=== PATIENT | female | born 1940 | race Caucasian/White ===

== ENCOUNTER → 2016-08-13 | Outpatient (CLI) | payer OTHER ==
[~2016-08-13] MED LIST: CALC-354 PO; CALC600T9 PO; CAND1TAB PO; CHOL100010 PO; CHOL20009 PO; CHOLPOW PO; CLB/200 PO; DICL1GEL12; LEVO100T7 PO; LEVO125T72 PO; LORA-741 PO; MECL1TAB42 PO; MECL25TA2 PO; PANT40TA PO; PRED-301 PO; PRED10TA PO; PRM/625 PO; SERT25TA PO; SERT50TA PO
== END | disposition home or self-care (01) ==
LOC: C.LABBC 15:10
PROVIDERS: ATTEND Internal Medicine
DX: E03.9 Hypothyroidism, unspecified (principal); I10 Essential (primary) hypertension

== ENCOUNTER → 2016-09-14 | Outpatient (CLI) | payer OTHER ==
[~2016-09-14] MED LIST changes: -CALC-354 PO; -CHOL20009 PO; -CHOLPOW PO; -CLB/200 PO; -DICL1GEL12; -LEVO100T7 PO; -MECL1TAB42 PO; -SERT50TA PO
== END | disposition home or self-care (01) ==
LOC: C.LABPBG 10:19
PROVIDERS: ATTEND Internal Medicine
DX: I10 Essential (primary) hypertension (principal); M35.3 Polymyalgia rheumatica

== ENCOUNTER → 2016-10-26 | Outpatient (CLI) | payer OTHER | END | disposition home or self-care (01) | LOC: C.LABPBG 13:44 | PROVIDERS: ATTEND Internal Medicine | DX: E03.9 Hypothyroidism, unspecified (principal); Z79.52 Long term (current) use of systemic steroids ==

== ENCOUNTER → 2017-01-07 | Outpatient (CLI) | payer OTHER ==
[~2017-01-07] MED LIST changes: +CALC-354 PO; +CHOL20009 PO; +CHOLPOW PO; +CLB/200 PO; +DICL1GEL12; +LEVO100T7 PO; +MECL1TAB42 PO; +SERT50TA PO
== END | disposition home or self-care (01) ==
LOC: C.LABPBG 08:07
PROVIDERS: ATTEND Family Medicine
DX: Z00.00 Encounter for general adult medical examination without abnormal findings (principal); M19.90 Unspecified osteoarthritis, unspecified site; E03.9 Hypothyroidism, unspecified

== ENCOUNTER → 2017-02-22 | Outpatient (CLI) | payer OTHER | END | disposition home or self-care (01) | LOC: C.LABPBG 10:09 | PROVIDERS: ATTEND Internal Medicine | DX: M35.3 Polymyalgia rheumatica (principal) ==

== ENCOUNTER → 2017-03-25 | Outpatient (CLI) | payer OTHER | END | disposition home or self-care (01) | LOC: C.LABPBG 09:34 | PROVIDERS: ATTEND Internal Medicine | DX: M35.3 Polymyalgia rheumatica (principal) ==

== ENCOUNTER → 2017-05-19 | Outpatient (CLI) | payer OTHER ==
[~2017-05-19] MED LIST changes: -CALC600T9 PO; -CHOL100010 PO; -LEVO125T72 PO; -MECL25TA2 PO; -PANT40TA PO; -PRED-301 PO; -PRED10TA PO; -PRM/625 PO; -SERT25TA PO
== END | disposition home or self-care (01) ==
LOC: C.LABPBG 14:50
PROVIDERS: ATTEND Internal Medicine
DX: M35.3 Polymyalgia rheumatica (principal); R25.2 Cramp and spasm

== ENCOUNTER → 2017-05-20 | Day surgery (SDC) | payer OTHER ==
[2017-05-17 10:07] VITALS: Ht 149.9 cm; Wt 56.8 kg
[~2017-05-20] VITALS: Ht 149.9 cm; Wt 56.8 kg
[~2017-05-20] MED LIST changes: +LIDOCAINE HCL 2% 2 ML VIAL (20MG/ML) ONE; +PROPOFOL IV EMULSION 10 MG/ML 20 ML VIAL IV ONE
[2017-05-20 14:34] VITALS: TEMP 36.5
--- NOTE | 2017-05-20 15:16 | Endo History and Physical ---
History & Physical Date of Service: May 20, 2017. Chief Complaint: Diarrhea Referring Physician: Danish Soto History of Present Illness 77 yo CF who presents for Colonoscopy secondary to diarrhea. Past Medical History Reflux, Hypertension, Thyroid Disease, Kidney Disease Past Surgical History Hx Cardiac Surgery: No Hx Internal Defibrillator: No Hx Pacemaker: No Hx Abdominal Surgery: Yes ([facility], SUDHEER) Hx of Implantable Prosthesis: No Hx Post-Op Nausea and Vomiting: No Hx Cancer Surgery: No Hx Thoracic Surgery: No Hx Orthopedic: Yes (CERVICAL DISCECTOMY/FUSION (GOOD ROM), RT/LEFT CTR, RT/ LEFT RC) Hx Urinary Tract Surgery: Yes (BLADDER TACK) Family History Colon CA Social History Smoking Status: Never Smoker Hx Substance Use: No Hx Alcohol Use: Yes (OCCASIONALLY) Allergies Coded Allergies: No Known Allergies (Unverified , 05/17/17) Current Medications Reported Home Medications Medications Dose Route/Sig Max Daily Dose Days Date Category Dose Instructions Caltrate 600+D (Calcium Carbonate-Cholecalcife) 1 Tab Tab 2 Tab PO QAM 05/17/17 Reported Vitamin D (Cholecalciferol) 2,000 Unit Tab 1 Tab PO QAM 05/17/17 Reported Zoloft (Sertraline HCl) 50 Mg Tab 50 Mg PO QAM 05/17/17 Reported Meclizine Hcl 25 Mg Tab 1 Tab PO TID PRN 10 05/17/17 Reported Levothyroxine Sodium 100 Mcg Tab 1 Tab PO QAM 90 05/17/17 Reported Voltaren 1% Top Gel (Diclofenac Sodium (Topical)) 1 % Gel DIRECTED PRN 05/17/17 Reported Cholestyramine (Cholestyramine (Bulk)) 1 Pow Pow 1 Dose PO QAM 05/17/17 Reported CeleBREX (Celecoxib) 200 Mg Cap 200 Mg PO QAM 05/17/17 Reported Ativan (Lorazepam) 0.5 Mg Tab 0.5 Mg PO DAILY PRN 10/05/13 Reported Candesartan Cilexetil/Hyd (Candesartan Cilexetil-Hydrochl) 1 Tab Tab 1 Tab PO QAM 10/05/13 Reported DOSE IS 32-12.5 Vital Signs Weight (Kilograms): 56.82 Height (Feet): 4 Height (Inches): 11 Date Time Temp Pulse Resp B/P (MAP) Pulse Ox O2 Delivery O2 Flow Rate FiO2 05/20/17 14:34 36.5 57 20 156/56 (89) 97 Room Air Physical Exam General Appearance: WD/WN, no apparent distress Respiratory/Chest: Auscultation: breath sounds normal Cardiovascular: Heart Auscultation: RRR Abdomen: Bowel Sounds: normal Inspection & Palpation: soft, non-distended, no tenderness, guarding & rebound Assessment and Plan Assessment: 77 yo CF who presents for Colonoscopy secondary to diarrhea. Plan: Proceed with colonoscopy.
--- NOTE | 2017-05-20 16:17 | Discharge Instructions ---
Endoscopy Patient Instructions Date / Procedure(s) Performed May 20, 2017. Colonoscopy Allergy Information Coded Allergies: No Known Allergies (Unverified , 05/17/17) Discharge Date / Findings May 20, 2017. Colon polyp Random colon biopsies Stool aspirate collected Medication Instructions OK to resume all medications today as prescribed Reported Home Medications Medications Dose Route/Sig Max Daily Dose Days Date Category Dose Instructions Caltrate 600+D (Calcium Carbonate-Cholecalcife) 1 Tab Tab 2 Tab PO QAM 05/17/17 Reported Vitamin D (Cholecalciferol) 2,000 Unit Tab 1 Tab PO QAM 05/17/17 Reported Zoloft (Sertraline HCl) 50 Mg Tab 50 Mg PO QAM 05/17/17 Reported Meclizine Hcl 25 Mg Tab 1 Tab PO TID PRN 10 05/17/17 Reported Levothyroxine Sodium 100 Mcg Tab 1 Tab PO QAM 90 05/17/17 Reported Voltaren 1% Top Gel (Diclofenac Sodium (Topical)) 1 % Gel DIRECTED PRN 05/17/17 Reported Cholestyramine (Cholestyramine (Bulk)) 1 Pow Pow 1 Dose PO QAM 05/17/17 Reported CeleBREX (Celecoxib) 200 Mg Cap 200 Mg PO QAM 05/17/17 Reported Ativan (Lorazepam) 0.5 Mg Tab 0.5 Mg PO DAILY PRN 10/05/13 Reported Candesartan Cilexetil/Hyd (Candesartan Cilexetil-Hydrochl) 1 Tab Tab 1 Tab PO QAM 10/05/13 Reported DOSE IS 32-12.5 Provider Instructions Activity Restrictions - No exercising or heavy lifting for 24 hours. - Do not drink alcohol the day of the procedure. - Do not drive a car or operate machinery until the day after the procedure. - Do not make any important decisions or sign important papers in 24 hours after the procedure. Following Day: - Return to full activity which may include returning to work/school. Diet Start your diet with liquids and light foods (jello, soup, juice, toast). Then eat your usual diet if not nauseated. Treatment For Common After Affects For mild abdominal pain, bloating, or excessive gas: - Rest - Eat lightly - Lie on right side Follow-Up Information Follow-up with Danish Soto as scheduled Anesthesia Information What You Should Know You have had a procedure that required some medicine to reduce anxiety and discomfort. This treatment is called moderate sedation. After receiving the treatment, you may be sleepy, but you will be able to breathe on your own. The effects of the treatment may last for several hours. Follow these instructions along with Activity/Diet recommendations noted above: * Do NOT do anything where dizziness or clumsiness would be dangerous. * Rest quietly at home today, then you can be up and about tomorrow. * Have a responsible person stay with you the rest of today. * You may have had an I.V. today. If so, you may take the dressing off later today. Recommendations Call your doctor if: * Trouble breathing * Continuous vomiting for more than 24 hours * Temperature above 101 degrees * Severe abdominal pain or bloating * Pain not relieved by pain medicine ordered * There is increased drainage or redness from any incision * A large amount of rectal bleeding greater than 2-3 tablespoons. (If you had a polyp/s removed or have hemorrhoids, a small amount of blood - from the rectum is to be expected.) * You have any unanswered questions or concerns. IN THE EVENT OF A SERIOUS EMERGENCY, GO TO THE NEAREST EMERGENCY ROOM Your discharge instructions were prepared by provider Brent Burks. Patient Instructions Signature Page Belinda Saucedo Patient (or Guardian) Signature/Date: I have read and understand the instructions given to me by my caregivers. Caregiver/RN/Doctor Signature/Date: The above-named patient and/or guardian has received patient instructions on this date. + Original Patient Signature Page (only) stays with chart. Please make copy for patient.
--- NOTE | 2017-05-20 16:25 | GI REPORT ---
Procedure Date: 05/20/2017 3:41 PM Procedure: Colonoscopy Indications: Chronic diarrhea Medicines: Monitored Anesthesia Care Complications: No immediate complications. Estimated Blood Loss: Estimated blood loss: none. Procedure: Pre-Anesthesia Assessment: - Prior to the procedure, a History and Physical was performed, and patient medications and allergies were reviewed. The patient's tolerance of previous anesthesia was also reviewed. The risks and benefits of the procedure and the sedation options and risks were discussed with the patient. All questions were answered, and informed consent was obtained. Prior Anticoagulants: The patient has taken no previous anticoagulant or antiplatelet agents. ASA Grade Assessment: II - A patient with mild systemic disease. After reviewing the risks and benefits, the patient was deemed in satisfactory condition to undergo the procedure. After I obtained informed consent, the scope was passed under direct vision. Throughout the procedure, the patient's blood pressure, pulse, and oxygen saturations were monitored continuously. The scope was introduced through the anus and advanced to the terminal ileum. The colonoscopy was performed without difficulty. The patient tolerated the procedure well. The quality of the bowel preparation was good. The terminal ileum, ileocecal valve, appendiceal orifice, and rectum were photographed. Findings: A 5 mm polyp was found in the descending colon. The polyp was sessile. The polyp was removed with a hot snare. Resection and retrieval were complete. Several random biopsies were obtained with cold forceps for histology in the entire colon. Fluid aspiration for cytology was performed in the entire colon. Impression: - One 5 mm polyp in the descending colon, removed with a hot snare. Resected and retrieved. - Several random biopsies were obtained in the entire colon. - Fluid aspiration was performed. Recommendation: - Resume previous diet. - Continue present medications. - Repeat colonoscopy for surveillance based on pathology results. - Return to primary care physician as previously scheduled. Brent Burks DO 05/20/2017 4:24:53 PM This report has been signed electronically. Note Initiated On: 05/20/2017 3:41 PM I attest to the content of the Intraoperative Record and orders documented therein, exceptions below
[2017-05-20 16:49] VITALS: BP 121/69; PULSE 66; O2SAT 98
--- NOTE | 2017-05-20 17:12 | Anesthesiology Progress Note ---
Anesthesia Post Op Note Date & Time May 20, 2017 at 17:12 Vital Signs Pain Intensity: 0 Vital Signs Past 12 Hours Date Time Temp Pulse Resp B/P (MAP) Pulse Ox O2 Delivery O2 Flow Rate FiO2 05/20/17 16:49 66 16 121/69 (86) 98 Room Air 05/20/17 16:34 70 16 130/64 (86) 99 Room Air 05/20/17 16:19 74 16 98/57 (71) 96 Room Air 05/20/17 14:34 36.5 57 20 156/56 (89) 97 Room Air Notes Mental Status: alert / awake / arousable, participated in evaluation Pt Amnestic to Procedure: Yes Nausea / Vomiting: adequately controlled Pain: adequately controlled Airway Patency, RR, SpO2: stable & adequate BP & HR: stable & adequate Hydration State: stable & adequate Anesthetic Complications: no major complications apparent
== END | disposition home or self-care (01) ==
LOC: C.GI 14:13
PROVIDERS: ATTEND Internal Medicine
DX: R19.7 Diarrhea, unspecified (principal); D12.4 Benign neoplasm of descending colon; I10 Essential (primary) hypertension; K21.9 Gastro-esophageal reflux disease without esophagitis; Z90.710 Acquired absence of both cervix and uterus; Z90.49 Acquired absence of other specified parts of digestive tract; Z98.1 Arthrodesis status; Z80.0 Family history of malignant neoplasm of digestive organs

== ENCOUNTER → 2017-06-02 | Outpatient (CLI) | payer OTHER ==
[~2017-06-02] MED LIST changes: -LIDOCAINE HCL 2% 2 ML VIAL (20MG/ML) ONE; -PROPOFOL IV EMULSION 10 MG/ML 20 ML VIAL IV ONE
== END | disposition home or self-care (01) ==
LOC: C.LABPBG 12:33
PROVIDERS: ATTEND Internal Medicine
DX: R79.9 Abnormal finding of blood chemistry, unspecified (principal); Z79.52 Long term (current) use of systemic steroids

== ENCOUNTER → 2017-07-12 | Outpatient (CLI) | payer OTHER ==
[2017-07-12 12:25] LABS: BASO % 0.7 %; BASO ABS # 0.07 K/uL (0-0.2); COMPLETE YES; EOS % 3.2 %; HEMATOCRIT 37.7 % (37-47); IG% 0.4 %; LYMPH % 17.9 %; LYMPH ABS # 1.81 K/uL (1.2-3.4); MEAN CELL VOLUME 90.4 fL (80-100); MEAN CORPUSCULAR HEMOGLOBIN 30.7 pg (25-34); MEAN PLATELET VOLUME 9.9 fL (7.4-10.4); MONO % 6.8 %; PLATELET COUNT 261 K/uL (130-400); RED BLOOD COUNT 4.17 M/uL (4.2-5.4); WHITE BLOOD COUNT 10.13 K/uL (4.8-10.8)
[2017-07-12 13:10] LABS: GLUCOSE 92 mg/dl (70-99)
[2017-07-12 13:11] LABS: ALKALINE PHOSPHATASE 84 U/L (45-117); ALT/SGPT 36 U/L (12-78); AST/SGOT 22 U/L (15-37); BLOOD UREA NITROGEN 26 mg/dl (7-18); BUN/CREATININE RATIO 23.6 (10-20); CALCIUM 9.9 mg/dl (8.5-10.1); CARBON DIOXIDE 23 mmol/L (21-32); CHLORIDE 107 mmol/L (98-107); CREATININE 1.09 mg/dl (0.60-1.20); POTASSIUM 4.1 mmol/L (3.5-5.1); SODIUM 139 mmol/L (136-145); THYROID STIMULATING HORMONE 0.072 uIu/ml (0.300-4.500)
== END | disposition home or self-care (01) ==
LOC: C.LABPBG 08:47
PROVIDERS: ATTEND Internal Medicine
DX: I10 Essential (primary) hypertension (principal); E03.9 Hypothyroidism, unspecified; M35.3 Polymyalgia rheumatica; Z79.52 Long term (current) use of systemic steroids; K52.9 Noninfective gastroenteritis and colitis, unspecified

== ENCOUNTER → 2017-08-16 | Outpatient (CLI) | payer OTHER | END | disposition home or self-care (01) | LOC: C.LABPBG 08:45 | PROVIDERS: ATTEND Internal Medicine | DX: E03.9 Hypothyroidism, unspecified (principal) ==

== ENCOUNTER → 2017-12-03 | Outpatient (CLI) | payer OTHER | END | disposition home or self-care (01) | LOC: C.LABBC 11:29 | PROVIDERS: ATTEND Family Medicine Adult Medicine | DX: E03.9 Hypothyroidism, unspecified (principal); R00.2 Palpitations; M35.3 Polymyalgia rheumatica; T14.8XXA Other injury of unspecified body region, initial encounter; W57.XXXA Bitten or stung by nonvenomous insect and other nonvenomous arthropods, initial encounter; R53.83 Other fatigue ==

== ENCOUNTER → 2017-12-27 | Outpatient (CLI) | payer OTHER ==
[2017-12-27 12:38] LABS: BASO % 0.2 %; BASO ABS # 0.02 K/uL (0-0.2); EOS % 0.4 %; EOS ABS # 0.04 K/uL (0-0.5); HEMATOCRIT 38.8 % (37-47); HEMOGLOBIN 13.3 g/dL (12.0-16.0); IG# 0.08 K/uL (0.00-0.02); LYMPH ABS # 1.34 K/uL (1.2-3.4); MEAN CELL VOLUME 91.5 fL (80-100); MEAN CORPUSCULAR HEMOGLOBIN 31.4 pg (25-34); MEAN CORPUSCULAR HGB CONC 34.3 g/dl (32-36); MEAN PLATELET VOLUME 9.8 fL (7.4-10.4); MONO % 2.9 %; NEUT % 82.7 %; NEUT ABS # 8.49 K/uL (1.4-6.5); PLATELET COUNT 261 K/uL (130-400); RED CELL DISTRIBUTION WIDTH CV 13.8 % (11.5-14.5); RED CELL DISTRIBUTION WIDTH SD 45.5 fL (36.4-46.3); WHITE BLOOD COUNT 10.27 K/uL (4.8-10.8)
[2017-12-27 13:21] LABS: ALBUMIN 3.7 gm/dl (3.4-5.0); ALKALINE PHOSPHATASE 78 U/L (45-117); ALT/SGPT 53 U/L (12-78); AST/SGOT 33 U/L (15-37); BLOOD UREA NITROGEN 39 mg/dl (7-18); CALCIUM 9.7 mg/dl (8.5-10.1); CARBON DIOXIDE 24 mmol/L (21-32); CHOLESTEROL 183 mg/dl (0-200); CREATININE 1.06 mg/dl (0.60-1.20); GLUCOSE 105 mg/dl (70-99); LDL CHOLESTEROL CALCULATED 78 mg/dl; POTASSIUM 3.7 mmol/L (3.5-5.1); SODIUM 140 mmol/L (136-145); TOTAL PROTEIN 7.7 gm/dl (6.4-8.2)
== END | disposition home or self-care (01) ==
LOC: C.LAB1850 10:35
PROVIDERS: ATTEND Internal Medicine Rheumatology
DX: I10 Essential (primary) hypertension (principal); E03.9 Hypothyroidism, unspecified; M35.3 Polymyalgia rheumatica; Z79.52 Long term (current) use of systemic steroids; K52.9 Noninfective gastroenteritis and colitis, unspecified; M25.50 Pain in unspecified joint; R70.0 Elevated erythrocyte sedimentation rate; R53.83 Other fatigue; H53.9 Unspecified visual disturbance

== ENCOUNTER → 2018-03-01 | Outpatient (CLI) | payer OTHER | END | disposition home or self-care (01) | LOC: C.LABPBG 09:43 | PROVIDERS: ATTEND Internal Medicine Rheumatology | DX: K21.9 Gastro-esophageal reflux disease without esophagitis (principal); Z79.52 Long term (current) use of systemic steroids; R53.83 Other fatigue; M31.6 Other giant cell arteritis ==

== ENCOUNTER 2019-03-31 08:12 | Observation (INO) ==
[2019-03-31] MEDS ORDERED: methylPREDNISolone 125 MG/2 ML VIAL IV STA (08:42)
[2019-03-31] MEDS ORDERED: MoRPHine SULFATE 4 MG/ML 1 ML CARP\\VIAL IV STA (08:44)
[2019-03-31] MEDS ORDERED: ACETAMINOPHEN 500 MG TAB PO STA (08:44)
[2019-03-31] MEDS ORDERED: SODIUM CHLORIDE 0.9% 500 ML IV SCH (08:45)
--- NOTE | 2019-03-31 09:01 | XRay Report ---
XR chest 1V portable CLINICAL HISTORY: weakness mental status change COMPARISON STUDY: 10/05/2013 FINDINGS: The bones soft tissues and hemidiaphragms are normal. The cardiomediastinal silhouette is n ormal. The lungs are clear. The pulmonary vasculature is normal. IMPRESSION: Negative chest. The above report was generated using voice recognition software. It may contain grammatical, syntax or spelling errors. Electronically signed by: Alistair Avila M.D. 03/31/2019 9:00 AM
[2019-03-31 09:03] LABS: Hematocrit (blood only) 37.3 % (37-47); Hemoglobin 12.7 g/dL (12.0-16.0); Mean Corpuscular Hemoglobin 31.1 pg (25-34); Mean Corpuscular Volume 91.4 fL (80-100); Mean Platelet Volume 9.8 fL (7.4-10.4); Platelet Count 180 K/uL (130-400); RDW Coefficient of Variation 12.9 % (11.5-14.5); RDW Standard Deviation 43.3 fL (36.4-46.3); Red Blood Count 4.08 M/uL (4.2-5.4); White Blood Count 12.73 K/uL (4.8-10.8)
[2019-03-31 09:09] LABS: iSTAT Creatinine 1.3 mg/dl (0.6-1.3); iSTAT Hemoglobin 12.2 g/dl (12.0-16.0); iSTAT Ionized Calcium 1.2 mmol/l (1.12-1.32); iSTAT Potassium 4.6 mEq/L (3.3-5.0)
[2019-03-31 09:20] LABS: Alanine Aminotransferase 60 U/L (12-78); Albumin Level 3.2 gm/dl (3.4-5.0); Aspartate Aminotransferase 57 U/L (15-37); BUN Creatinine Ratio 22.5 (10-20); Blood Urea Nitrogen 28 mg/dl (7-18); Calcium 9.2 mg/dl (8.5-10.1); Carbon Dioxide 25 mmol/L (21-32); Chloride 106 mmol/L (98-107); Creatinine Clr Calc Pharmacy 27.8 ml/min; Est GFR (African American) 47.6; Est GFR (Non-African American) 41.1; Glucose 104 mg/dl (70-99); Potassium 4.5 mmol/L (3.5-5.1); Sodium 138 mmol/L (136-145)
[2019-03-31 09:22] LABS: Basophils # (auto) 0.03 K/uL (0-0.2); Basophils % (auto) 0.2 %; Eosinophils # (auto) 0.06 K/uL (0-0.5); Eosinophils % (auto) 0.5 %; Immature Granulocytes # (auto) 0.03 K/uL (0.00-0.02); Immature Granulocytes % (auto) 0.2 %; Lymphocytes # (auto) 0.67 K/uL (1.2-3.4); Lymphocytes % (auto) 5.3 %; Monocytes # (auto) 0.98 K/uL (0.11-0.59); Monocytes % (auto) 7.7 %; Neutrophils # (auto) 10.96 K/uL (1.4-6.5); Neutrophils % (auto) 86.1 %
[2019-03-31 09:31] LABS: Alkaline Phosphatase 87 U/L (45-117); Bilirubin,Total 0.6 mg/dl (0.2-1); Creatine Kinase 65 U/L (26-192); Creatine Kinase MB < 1.0 ng/ml (0.5-3.6); Globulin 3.3 gm/dl (2.5-4.0); Total Protein 6.5 gm/dl (6.4-8.2); Troponin I < 0.015 ng/ml (0-0.045)
[2019-03-31] MEDS ORDERED: cefTRIAXone SODIUM 2,000 MG/70 ML BAG IV STA (10:18)
[2019-03-31 10:25] LABS: Appearance Urine Clear (Clear); Bacteria Urine Automated 4+ (Negative); Bilirubin Urine Negative (Negative); Blood Urine Negative (Negative); Cast Urine Automated 0 /lpf (0-5); Color Urine Yellow; Epithelial Cell Urine Auto >30 /lpf (0-5); Glucose Urine UA Negative (Negative); Ketones Urine Negative (Negative); Leukocyte Esterase Urine 2+ (Negative); Nitrite Urine Positive (Negative); Protein Urine Negative (Negative); RBC Urine Automated 0-4 /hpf (0-4); Specific Gravity Urine 1.011 (1.000-1.030); Urobilinogen Urine Negative (Negative)
--- NOTE | 2019-03-31 11:18 | History & Physical Report ---
Date of Service March 31, 2019 Assessment & Plan (1) Myalgia: Patient with 1 day of diffuse myalgias and proximal muscle weakness as well as some nausea/vomiting yesterday. She is a history of polymyalgia rheumatica on chronic steroids which she has been tapering over the last 2 to 3 weeks. Presently she is on 1 mg of prednisone every other day. She is afebrile, hemodynamically stable, electrolytes within normal limits. Patient does not appear to be in adrenal crisis at this time. No visual deficits/jaw claudication or temporal tenderness to suggest temporal arteritis. Tenderness of the muscles and proximal weakness noted. Differential to include flare of polymyalgia rheumatica, adrenal insufficiency, less likely infectious source such as Lyme. Patient also with UTI which may be a precipitating factor for adrenal insufficiency. -Observation to medical floor -Check random cortisol, total CK, ESR, CRP -Check Lyme titers -Celebrex at home dose -Tylenol as needed -Treat underlying UTI as below -Will administer Hydrocortisone 50mg IV q 8 hours for now and monitor symptoms. Patient will most likely need to be discharged on increased dose of Prednisone with Rheumatology followup -PT/OT assessment Present on Admission?: Yes (2) UTI (urinary tract infection): +UA. Patient without symptoms. Afebrile, hemodynamically stable, mild leukocytosis at 12.73 Possibly contributing to other symptoms. -Treatment with Ceftriaxone 1gm IV daily -Follow cultures Present on Admission?: Yes (3) PMR (polymyalgia rheumatica): As above, patient with PMR x 4-5 years, seemingly well controlled on daily Prednisone. Currently weaning dosage, now 1mg QOD. Prior flare 2 years ago with pain and weakness in the upper extremities. Today's symptoms are much more severe and diffuse. 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 Stable. TSH = 1.73 -Continue Synthroid 75 MCG daily Present on Admission?: Yes (6) HTN (hypertension): Blood pressure presently 94/47. Patient reports her pressure is overall fairly well controlled with her candesartan/HCTZ. She has had several episodes of hypotension in the past which she attributed to dehydration. Low blood pressure raises concern adrenal insufficiency. -Hydrocortisone as above -Continue candesartan/HCTZ, hold for systolic less than 110 mmHg -Closely monitor blood pressure Present on Admission?: Yes (7) GERD without esophagitis: Chronic. Stable. -Continue omeprazole Present on Admission?: Yes (8) Anxiety: Chronic. Stable -Continue sertraline -Patient reports rarely taking Lorazepam F/E/N -normal saline solution at 80 mL/h x 1 L, encourage p.o. intake, monitor electrolytes and replete as needed, AHA diet as tolerated Prophylaxis: Lovenox for DVT prophylaxis Code: Full per discussion with patient, daughter at bedside Disposition: Observation to medical floor Present on Admission?: Yes History of Present Illness Chief Complaint: Weakness, myalgias Primary Care Provider: Danish Montilla MD Belinda Saucedo is a pleasant 78-year-old female with past history pertinent for hypothyroidism, polymyalgia rheumatica on chronic prednisone, GERD presenting with 1 day of diffuse body aches, muscle pain, weakness. Patient reports that symptoms began yesterday afternoon. She denies any increase in activity or strenuous activity of late. She reports diffuse myalgias, pain mainly in her upper arms, shoulders, thighs and buttock. She also reports pain in the joints of her hands and shoulders. She reports some weakness of her proximal muscle groups, with difficulty raising her arms above her head to comb her hair and difficulty rising out of a chair. She had a slight headache this morning which has since resolved. She denies fevers but has had some chills. Denies visual deficit, pain with eye movement, focal numbness/weakness, jaw claudication. Patient attempted to ambulate to the restroom while in the ER and required assistance. At baseline she is active and independent. She completes her own housework, gardens and mows her own lawn. No known tick bites, but is concerned for the possibility of Lyme. Patient has a history of polymyalgia rheumatica which was diagnosed approximately 4 to 5 years ago. She had one flare of PMR approximately 2 years ago which involved severe pain and weakness of her upper extremities. At that time her prednisone dose was increased and her symptoms resolved. She has been on varying doses of prednisone since being diagnosed. She has been weaning her prednisone for the last 2 to 3 weeks. Her current dose is 1 mg of prednisone every other day. She has seen Rheumatology in the past approximately 2 months ago. ER course: Tylenol 1 g p.o., ceftriaxone 2 g IV, Solu-Medrol 125 mg IV, morphine 4 mg IV Allergies Allergy/AdvReac Type Severity Reaction Status Date / Time No Known Drug Allergies Allergy Verified 03/31/19 08:35 Home Medications Home Medications Medication Instructions Recorded Confirmed Type candesartan 16 0.5 tab PO QAM tab 02/16/19 03/31/19 History mg-hydrochlorothiazide 12.5 mg tablet celecoxib 200 mg capsule 200 mg PO QAM 02/16/19 03/31/19 History cholecalciferol (vitamin D3) 2,000 2,000 units PO QAM 02/16/19 03/31/19 History unit capsule levothyroxine 75 mcg tablet 75 mcg PO QAM 02/16/19 03/31/19 History lorazepam 0.5 mg tablet 0.5 mg PO DAILY PRN 02/16/19 03/31/19 History meclizine 25 mg tablet 25 mg PO TID PRN 02/16/19 03/31/19 History omeprazole 20 mg capsule,delayed 20 mg PO HS PRN 02/16/19 03/31/19 History release sertraline 50 mg tablet 50 mg PO QAM 02/16/19 03/31/19 History prednisone 1 mg tablet 1 mg PO QAM 03/15/19 03/31/19 History acetaminophen [Tylenol Extra 1,000 mg PO Q6H PRN 03/31/19 03/31/19 History Strength] aspirin 1,000 mg PO UD 03/31/19 03/31/19 History Past Med/Surg History Social History marital status: Feels Safe at Home: Yes Smoking Status: Never smoker Hx Alcohol Use: Yes Review of Systems Review of Systems: All systems reviewed & are unremarkable except as noted in HPI & below Patient complains of chills, sore throat. She had one episode of nausea with vomiting yesterday and mild diarrhea. Denies dysuria, urinary frequency or urgency Physical Exam Physical Exam: General: patient resting, in mild pain, NAD, non-toxic in appearance, AA&O x 4 Skin: warm, dry, intact, no rashes or lesions HEENT: NC/AT, to temporal tenderness, PERRL, EOMI, no pain with eye movement, anicteric sclera, conjunctiva without injection, external ear normal to inspection and nontender, nares patent, moist mucus membranes, dentition intact, no oropharyngeal lesions, neck supple, trachea midline, no LAD, no thyromegaly, no JVD Heart: +S1/S2, regular, no m/r/g Lungs: equal air entry bilaterally, no rales/rhonchi/wheezes Abd: +BS, soft, NT/ND, no masses/organomegaly/ascites Ext: warm, 2+ pulses in UE/LE bilaterally, no clubbing/cyanosis or edema, arthritic changes of hands Neuro: nonfocal, patient AA&O x 4, speech intact, no facial droop, sensation to light touch intact, moving all extremities on command LE 5/5, UE 4/5, required assistance rolling over due to pain and muscle weakness, muscles soft with tenderness on palpation Results & Data Vital Signs (Past 12 Hours) Vital Signs Temp Pulse Pulse Resp BP BP Pulse Ox 03/31/19 11:00 68 18 94/47 L 94 03/31/19 09:51 80 16 105/56 L 96 03/31/19 08:45 95 03/31/19 08:19 37.2 C 85 18 124/85 96 Laboratory Results Lab Results 03/31/19 03/31/19 03/31/19 Range/Units 08:50 08:50 08:55 WBC 12.73 H (4.8-10.8) K/uL RBC 4.08 L (4.2-5.4) M/uL Hgb 12.7 (12.0-16.0) g/dL POC Hgb 12.2 (12.0-16.0) g/dl Hct 37.3 (37-47) % POC Hct 36 L (37-47) % MCV 91.4 (80-100) fL MCH 31.1 (25-34) pg MCHC 34.0 (32-36) g/dL RDW Std Deviation 43.3 (36.4-46.3) fL RDW Coeff of Simba 12.9 (11.5-14.5) % Plt Count 180 (130-400) K/uL MPV 9.8 (7.4-10.4) fL Immature Gran % (Auto) 0.2 % Neut % (Auto) 86.1 % Lymph % (Auto) 5.3 % [place] % (Auto) 7.7 % Eos % (Auto) 0.5 % Baso % (Auto) 0.2 % Immature Gran # (Auto) 0.03 H (0.00-0.02) K/uL Neut # (Auto) 10.96 H (1.4-6.5) K/uL Lymph # (Auto) 0.67 L (1.2-3.4) K/uL [place] # (Auto) 0.98 H (0.11-0.59) K/uL Eos # (Auto) 0.06 (0-0.5) K/uL Baso # (Auto) 0.03 (0-0.2) K/uL POC Sodium 136 (135-144) mEq/L Sodium 138 (136-145) mmol/L POC Potassium 4.6 (3.3-5.0) mEq/L Potassium 4.5 (3.5-5.1) mmol/L POC Chloride 102 (101-112) mEq/L Chloride 106 (98-107) mmol/L Carbon Dioxide 25 (21-32) mmol/L POC Total CO2 21 L (24-31) mEq/l Anion Gap 7.0 (3-11) POC Anion Gap 19.0 (16-25) mmol/L POC BUN 27 H (7-18) mg/dl BUN 28 H (7-18) mg/dl Creatinine 1.26 H (0.6-1.2) mg/dl POC Creatinine 1.3 (0.6-1.3) mg/dl Est Cr Clr Drug Dosing 27.8 ml/min Est GFR ( Amer) 47.6 Est GFR (Non-Af Amer) 41.1 BUN/Creatinine Ratio 22.5 H (10-20) Glucose 104 H (70-99) mg/dl POC Glucose (other) 103 H (70-99) mg/dl Calcium 9.2 (8.5-10.1) mg/dl POC Ioniz Calcium Humera 1.20 (1.12-1.32) mmol/l Total Bilirubin 0.6 (0.2-1) mg/dl AST 57 H (15-37) U/L ALT 60 (12-78) U/L Alkaline Phosphatase 87 (45-117) U/L Total Creatine Kinase 65 (26-192) U/L CK-MB (CK-2) < 1.0 (0.5-3.6) ng/ml CK/CKMB % Calc TNP Troponin I < 0.015 (0-0.045) ng/ml Total Protein 6.5 (6.4-8.2) gm/dl Albumin 3.2 L (3.4-5.0) gm/dl Globulin 3.3 (2.5-4.0) gm/dl Albumin/Globulin Ratio 1.0 (0.9-2) TSH 1.730 (0.300-4.500) uIu/ml Urine Color Urine Appearance (Clear) Urine pH (4.5-7.5) Ur Specific [place] (1.000-1.030) Urine Protein (Negative) Urine Glucose (UA) (Negative) Urine Ketones (Negative) Urine Blood (Negative) Urine Nitrite (Negative) Urine Bilirubin (Negative) Urine Urobilinogen (Negative) Ur Leukocyte Esterase (Negative) Urine WBC (Auto) (0-5) /hpf Urine RBC (Auto) (0-4) /hpf U Hyaline Cast (Auto) (0-5) /lpf U Epithel Cells (Auto) (0-5) /lpf Urine Bacteria (Auto) (Negative) 03/31/19 Range/Units 10:10 WBC (4.8-10.8) K/uL RBC (4.2-5.4) M/uL Hgb (12.0-16.0) g/dL POC Hgb (12.0-16.0) g/dl Hct (37-47) % POC Hct (37-47) % MCV (80-100) fL MCH (25-34) pg MCHC (32-36) g/dL RDW Std Deviation (36.4-46.3) fL RDW Coeff of Simba (11.5-14.5) % Plt Count (130-400) K/uL MPV (7.4-10.4) fL Immature Gran % (Auto) % Neut % (Auto) % Lymph % (Auto) % [place] % (Auto) % Eos % (Auto) % Baso % (Auto) % Immature Gran # (Auto) (0.00-0.02) K/uL Neut # (Auto) (1.4-6.5) K/uL Lymph # (Auto) (1.2-3.4) K/uL [place] # (Auto) (0.11-0.59) K/uL Eos # (Auto) (0-0.5) K/uL Baso # (Auto) (0-0.2) K/uL POC Sodium (135-144) mEq/L Sodium (136-145) mmol/L POC Potassium (3.3-5.0) mEq/L Potassium (3.5-5.1) mmol/L POC Chloride (101-112) mEq/L Chloride (98-107) mmol/L Carbon Dioxide (21-32) mmol/L POC Total CO2 (24-31) mEq/l Anion Gap (3-11) POC Anion Gap (16-25) mmol/L POC BUN (7-18) mg/dl BUN (7-18) mg/dl Creatinine (0.6-1.2) mg/dl POC Creatinine (0.6-1.3) mg/dl Est Cr Clr Drug Dosing ml/min Est GFR ( Amer) Est GFR (Non-Af Amer) BUN/Creatinine Ratio (10-20) Glucose (70-99) mg/dl POC Glucose (other) (70-99) mg/dl Calcium (8.5-10.1) mg/dl POC Ioniz Calcium Humera (1.12-1.32) mmol/l Total Bilirubin (0.2-1) mg/dl AST (15-37) U/L ALT (12-78) U/L Alkaline Phosphatase (45-117) U/L Total Creatine Kinase (26-192) U/L CK-MB (CK-2) (0.5-3.6) ng/ml CK/CKMB % Calc Troponin I (0-0.045) ng/ml Total Protein (6.4-8.2) gm/dl Albumin (3.4-5.0) gm/dl Globulin (2.5-4.0) gm/dl Albumin/Globulin Ratio (0.9-2) TSH (0.300-4.500) uIu/ml Urine Color Yellow Urine Appearance Clear (Clear) Urine pH 5.0 (4.5-7.5) Ur Specific [place] 1.011 (1.000-1.030) Urine Protein Negative (Negative) Urine Glucose (UA) Negative (Negative) Urine Ketones Negative (Negative) Urine Blood Negative (Negative) Urine Nitrite Positive A (Negative) Urine Bilirubin Negative (Negative) Urine Urobilinogen Negative (Negative) Ur Leukocyte Esterase 2+ H (Negative) Urine WBC (Auto) 5-10 H (0-5) /hpf Urine RBC (Auto) 0-4 (0-4) /hpf U Hyaline Cast (Auto) 0 (0-5) /lpf U Epithel Cells (Auto) >30 H (0-5) /lpf Urine Bacteria (Auto) 4+ H (Negative) Diagnostic Findings XR chest 1V portable CLINICAL HISTORY: weakness mental status change COMPARISON STUDY: 10/05/2013 FINDINGS: The bones soft tissues and hemidiaphragms are normal. The cardiomediastinal silhouette is normal. The lungs are clear. The pulmonary vasculature is normal. IMPRESSION: Negative chest. The above report was generated using voice recognition software. It may contain grammatical, syntax or spelling errors. Electronically signed by: Alistair Avila M.D. 03/31/2019 9:00 AM Dictated: 03/31/19858 Transcribed: 03/31/19858 ECG Additional Comments: This study shows normal sinus rhythm at 70 bpm, normal axis, VA = 150, QRS = 68, QTc = 410. Possible age-indeterminate inferior infarct, poor R wave progression. No acute ST elevations. EKG unchanged when compared with prior study Code Status & VTE Plan Code Status FULL CODE VTE Prophylaxis Plan VTE Prophylaxis will be ordered: Yes PG Care Time/CCT Total # of Minutes Spent Total Time Spent with Patient: Total time spent is greater than 50% in coordination of care (as documented) at patient's floor/unit and/or counseling patient: (1) Hypothyroidism Hypothyroidism type: unspecified Qualified Code(s): E03.9 - Hypothyroidism, unspecified (2) HTN (hypertension) Hypertension type: essential hypertension Qualified Code(s): I10 - Essential (primary) hypertension (3) UTI (urinary tract infection) Urinary tract infection type: site unspecified Hematuria presence: without hematuria Qualified Code(s): N39.0 - Urinary tract infection, site not specified
[2019-03-31] MEDS ORDERED: SODIUM CHLORIDE 0.9% 1000ML 1,000 ML IV SCH (13:02)
[2019-03-31] MEDS ORDERED: ACETAMINOPHEN 500 MG TAB PO PRN (13:02)
[2019-03-31] MEDS ORDERED: ONDANSETRON INJ 2 MG/ML 2 ML VIAL IV PRN (13:02)
[2019-03-31] MEDS ORDERED: PANTOprazole 40 MG TAB PO PRN (13:02)
--- NOTE | 2019-03-31 14:11 | Emergency Department Note ---
Entered by Johnny Irizarry acting as a scribe for Bro Blas MD History of Present Illness General Chief complaint: Pain (Generalized) Time Seen by Provider: 03/31/19 08:16 Source: patient History of Present Illness Onset (ago): day(s) (yesterday afternoon) Location: neck, lower extremity, left (shoulder) and right (shoulder) Pain Consistency: + other (worsening) Maximum Pain Intensity: 8 Quality: + other (muscle pain) Relieved By: + medication (steroids) Associated symptoms: + denies other symptoms The patient is a 78 y/o female who presents to the ED w/ CC of worsening muscle pain to her neck, shoulders, throat, lower back, and legs beginning yesterday afternoon. The patient states she has a history of polymyalgia. She reports this does not feel like a flare because she normally only has pain in the muscles of her arms. The patient notes she normally takes prednisone on a flare up of her polymyalgia. She states she took Tylenol and extra strength aspirin yesterday without relief. The patient reports she did not take medication today. She denies doing anything out of the ordinary and other symptoms than the muscular pain. Home Medications Home Medications Medication Instructions Recorded Confirmed Type candesartan 16 0.5 tab PO QAM tab 02/16/19 03/31/19 History mg-hydrochlorothiazide 12.5 mg tablet celecoxib 200 mg capsule 200 mg PO QAM 02/16/19 03/31/19 History cholecalciferol (vitamin D3) 2,000 2,000 units PO QAM 02/16/19 03/31/19 History unit capsule levothyroxine 75 mcg tablet 75 mcg PO QAM 02/16/19 03/31/19 History lorazepam 0.5 mg tablet 0.5 mg PO DAILY PRN 02/16/19 03/31/19 History meclizine 25 mg tablet 25 mg PO TID PRN 02/16/19 03/31/19 History omeprazole 20 mg capsule,delayed 20 mg PO HS PRN 02/16/19 03/31/19 History release sertraline 50 mg tablet 50 mg PO QAM 02/16/19 03/31/19 History prednisone 1 mg tablet 1 mg PO QAM 03/15/19 03/31/19 History acetaminophen [Tylenol Extra 1,000 mg PO Q6H PRN 03/31/19 03/31/19 History Strength] aspirin 1,000 mg PO UD 03/31/19 03/31/19 History Allergies Allergy/AdvReac Type Severity Reaction Status Date / Time No Known Drug Allergies Allergy Verified 03/31/19 08:35 Past Med/Surg History Medical History Temporal arteritis syndrome (Acute) SI joint arthritis (Acute) Retinal wrinkling, right eye (Acute) 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) Hypothyroidism (Acute) Heart palpitations (Acute) GERD without esophagitis (Acute) Fatigue (Acute) Chronic diarrhea (Acute) Anxiety (Acute) History of cystocele Repair Surgical History H/O colonoscopy H/O vaginal hysterectomy History of ERCP History of carpal tunnel surgery Hx of cataract surgery Hx of cholecystectomy Hx of tonsillectomy S/P rotator cuff repair Family History Father Renal failure Cardiovascular disease (Premature) Acute myocardial infarction Diabetes Colon cancer Mother Hypertension Brother Acute myocardial infarction Obesity Malignant neoplasm of pancreas Sister Colon cancer Daughter Adult celiac disease Social History Preferred Language: German Communication Ability: Effective Material Man Required: No Beliefs That Will Affect Care: Religion Religion Beliefs: scientology marital status: Current Living Situation: Spouse Other Information That Helps Us Care for You: No Feels Safe at Home: Yes Safety Concerns: Feels Safe At This Time Smoking Status: Never smoker Hx Alcohol Use: Yes Alcohol type: wine Hx Substance Use: No Review of Systems See HPI for pertinent positives & negatives. and A total of 10 systems reviewed and were otherwise negative Physical Exam Vital Signs Vital Signs - 24 hr 03/31/19 08:19 03/31/19 08:45 03/31/19 09:51 Temperature 37.2 C Temperature Source Oral Sepsis Recent Fever Within 48 Hours No Sepsis New/Unexplained Change in Mental Status No Sepsis Action Taken by Nursing No Action Required Pulse Rate 85 Pulse Rate [Apical] 80 Respiratory Rate 18 16 Blood Pressure 124/85 Blood Pressure [Left Arm] 105/56 L Blood Pressure Mean 98 Blood Pressure Mean [Left Arm] 72 Pulse Oximetry 96 95 96 Oxygen Delivery Method Room Air Room Air Room Air 03/31/19 11:00 Temperature Temperature Source Sepsis Recent Fever Within 48 Hours Sepsis New/Unexplained Change in Mental Status Sepsis Action Taken by Nursing Pulse Rate Pulse Rate [Apical] 68 Respiratory Rate 18 Blood Pressure Blood Pressure [Left Arm] 94/47 L Blood Pressure Mean Blood Pressure Mean [Left Arm] 62 Pulse Oximetry 94 Oxygen Delivery Method Room Air GENERAL: Awake, alert, well-appearing, in no acute distress HENT: Normocephalic, atraumatic. Oropharynx unremarkable. EYES: Normal conjunctiva. Sclera non-icteric. NECK: Supple. No nuchal rigidity. FROM. No JVD. RESPIRATORY: Clear to auscultation. CARDIAC: Regular rate, normal rhythm. Extremities warm and well perfused. Pulses equal. ABDOMEN: Soft, non-distended. No tenderness to palpation. No rebound or guarding. No masses. RECTAL: Deferred. MUSCULOSKELETAL: Chest examination reveals no tenderness. The back is symmetrical on inspection without obvious abnormality. There is no CVA tenderness to palpation. No joint edema. LOWER EXTREMITIES: Calves are equal size bilaterally and non-tender. No edema. No discoloration. NEURO: Normal sensorium. No sensory or motor deficits noted. SKIN: No rash or jaundice noted. Course 0837: Past medical records reviewed. The patient was evaluated in room A03. A co mplete history and physical exam was performed. 1012: Upon reevaluation, I discussed findings and results with the patient. She verbalized agreement of the treatment plan. The patient will be evaluated for further management and care. 1022: I reviewed the patient's case with Dr. Sánchez, [facility] Hospitalist. She will evaluate the patient for further management. Administered Medications Discontinued Medications Acetaminophen (Tylenol) 1,000 mg PO NOW STA Stop: 03/31/19 08:45 Last Admin: 03/31/19 09:00 Dose: 1,000 mg Documented by: [id number] Sodium Chloride (Nss) 500 mls @ 999 mls/hr IV .Q31M LOREN Stop: 03/31/19 09:15 Last Infusion: 03/31/19 09:36 Dose: 0 mls/hr Documented by: [id number] Admin: 03/31/19 09:02 Dose: 999 mls/hr Documented by: [id number] Ceftriaxone Sodium (Rocephin) 2,000 mg in 70 mls @ 140 mls/hr IV NOW STA Stop: 03/31/19 10:47 Last Infusion: 03/31/19 11:00 Dose: 0 mls/hr Documented by: [id number] Admin: 03/31/19 10:30 Dose: 140 mls/hr Documented by: [id number] Methylprednisolone (Solumedrol) 125 mg IV NOW STA Stop: 03/31/19 08:43 Last Admin: 03/31/19 09:01 Dose: 125 mg Documented by: [id number] Morphine Sulfate (Morphine Sulfate) 4 mg IV NOW STA Stop: 03/31/19 08:45 Last Admin: 03/31/19 09:01 Dose: 4 mg Documented by: [id number] Medical Decision Making Differential Diagnosis Differential diagnoses includes but is not limited to acute coronary syndrome, myocardial infarction, pericarditis, pulmonary embolus, aortic dissection, pneumonia, pneumothorax, musculoskeletal, shingles, esophageal. Medical Records Attestation: I reviewed the patient's medical records. Home Medications Current Medication List: was personally reviewed by me Laboratory Data Attestation: I reviewed the patient's lab results. Result diagrams: 03/31/19 08:50 03/31/19 08:50 Lab Results 03/31/19 03/31/19 03/31/19 Range/Units 08:50 08:50 08:55 WBC 12.73 H (4.8-10.8) K/uL RBC 4.08 L (4.2-5.4) M/uL Hgb 12.7 (12.0-16.0) g/dL POC Hgb 12.2 (12.0-16.0) g/dl Hct 37.3 (37-47) % POC Hct 36 L (37-47) % MCV 91.4 (80-100) fL MCH 31.1 (25-34) pg MCHC 34.0 (32-36) g/dL RDW Std Deviation 43.3 (36.4-46.3) fL RDW Coeff of Simba 12.9 (11.5-14.5) % Plt Count 180 (130-400) K/uL MPV 9.8 (7.4-10.4) fL Immature Gran % (Auto) 0.2 % Neut % (Auto) 86.1 % Lymph % (Auto) 5.3 % [place] % (Auto) 7.7 % Eos % (Auto) 0.5 % Baso % (Auto) 0.2 % Immature Gran # (Auto) 0.03 H (0.00-0.02) K/uL Neut # (Auto) 10.96 H (1.4-6.5) K/uL Lymph # (Auto) 0.67 L (1.2-3.4) K/uL [place] # (Auto) 0.98 H (0.11-0.59) K/uL Eos # (Auto) 0.06 (0-0.5) K/uL Baso # (Auto) 0.03 (0-0.2) K/uL POC Sodium 136 (135-144) mEq/L Sodium 138 (136-145) mmol/L POC Potassium 4.6 (3.3-5.0) mEq/L Potassium 4.5 (3.5-5.1) mmol/L POC Chloride 102 (101-112) mEq/L Chloride 106 (98-107) mmol/L Carbon Dioxide 25 (21-32) mmol/L POC Total CO2 21 L (24-31) mEq/l Anion Gap 7.0 (3-11) POC Anion Gap 19.0 (16-25) mmol/L POC BUN 27 H (7-18) mg/dl BUN 28 H (7-18) mg/dl Creatinine 1.26 H (0.6-1.2) mg/dl POC Creatinine 1.3 (0.6-1.3) mg/dl Est Cr Clr Drug Dosing 27.8 ml/min Est GFR ( Amer) 47.6 Est GFR (Non-Af Amer) 41.1 BUN/Creatinine Ratio 22.5 H (10-20) Glucose 104 H (70-99) mg/dl POC Glucose (other) 103 H (70-99) mg/dl Calcium 9.2 (8.5-10.1) mg/dl POC Ioniz Calcium Humera 1.20 (1.12-1.32) mmol/l Total Bilirubin 0.6 (0.2-1) mg/dl AST 57 H (15-37) U/L ALT 60 (12-78) U/L Alkaline Phosphatase 87 (45-117) U/L Total Creatine Kinase 65 (26-192) U/L CK-MB (CK-2) < 1.0 (0.5-3.6) ng/ml CK/CKMB % Calc TNP Troponin I < 0.015 (0-0.045) ng/ml Total Protein 6.5 (6.4-8.2) gm/dl Albumin 3.2 L (3.4-5.0) gm/dl Globulin 3.3 (2.5-4.0) gm/dl Albumin/Globulin Ratio 1.0 (0.9-2) TSH 1.730 (0.300-4.500) uIu/ml Urine Color Urine Appearance (Clear) Urine pH (4.5-7.5) Ur Specific [place] (1.000-1.030) Urine Protein (Negative) Urine Glucose (UA) (Negative) Urine Ketones (Negative) Urine Blood (Negative) Urine Nitrite (Negative) Urine Bilirubin (Negative) Urine Urobilinogen (Negative) Ur Leukocyte Esterase (Negative) Urine WBC (Auto) (0-5) /hpf Urine RBC (Auto) (0-4) /hpf U Hyaline Cast (Auto) (0-5) /lpf U Epithel Cells (Auto) (0-5) /lpf Urine Bacteria (Auto) (Negative) 03/31/19 Range/Units 10:10 WBC (4.8-10.8) K/uL RBC (4.2-5.4) M/uL Hgb (12.0-16.0) g/dL POC Hgb (12.0-16.0) g/dl Hct (37-47) % POC Hct (37-47) % MCV (80-100) fL MCH (25-34) pg MCHC (32-36) g/dL RDW Std Deviation (36.4-46.3) fL RDW Coeff of Simba (11.5-14.5) % Plt Count (130-400) K/uL MPV (7.4-10.4) fL Immature Gran % (Auto) % Neut % (Auto) % Lymph % (Auto) % [place] % (Auto) % Eos % (Auto) % Baso % (Auto) % Immature Gran # (Auto) (0.00-0.02) K/uL Neut # (Auto) (1.4-6.5) K/uL Lymph # (Auto) (1.2-3.4) K/uL [place] # (Auto) (0.11-0.59) K/uL Eos # (Auto) (0-0.5) K/uL Baso # (Auto) (0-0.2) K/uL POC Sodium (135-144) mEq/L Sodium (136-145) mmol/L POC Potassium (3.3-5.0) mEq/L Potassium (3.5-5.1) mmol/L POC Chloride (101-112) mEq/L Chloride (98-107) mmol/L Carbon Dioxide (21-32) mmol/L POC Total CO2 (24-31) mEq/l Anion Gap (3-11) POC Anion Gap (16-25) mmol/L POC BUN (7-18) mg/dl BUN (7-18) mg/dl Creatinine (0.6-1.2) mg/dl POC Creatinine (0.6-1.3) mg/dl Est Cr Clr Drug Dosing ml/min Est GFR ( Amer) Est GFR (Non-Af Amer) BUN/Creatinine Ratio (10-20) Glucose (70-99) mg/dl POC Glucose (other) (70-99) mg/dl Calcium (8.5-10.1) mg/dl POC Ioniz Calcium Humera (1.12-1.32) mmol/l Total Bilirubin (0.2-1) mg/dl AST (15-37) U/L ALT (12-78) U/L Alkaline Phosphatase (45-117) U/L Total Creatine Kinase (26-192) U/L CK-MB (CK-2) (0.5-3.6) ng/ml CK/CKMB % Calc Troponin I (0-0.045) ng/ml Total Protein (6.4-8.2) gm/dl Albumin (3.4-5.0) gm/dl Globulin (2.5-4.0) gm/dl Albumin/Globulin Ratio (0.9-2) TSH (0.300-4.500) uIu/ml Urine Color Yellow Urine Appearance Clear (Clear) Urine pH 5.0 (4.5-7.5) Ur Specific [place] 1.011 (1.000-1.030) Urine Protein Negative (Negative) Urine Glucose (UA) Negative (Negative) Urine Ketones Negative (Negative) Urine Blood Negative (Negative) Urine Nitrite Positive A (Negative) Urine Bilirubin Negative (Negative) Urine Urobilinogen Negative (Negative) Ur Leukocyte Esterase 2+ H (Negative) Urine WBC (Auto) 5-10 H (0-5) /hpf Urine RBC (Auto) 0-4 (0-4) /hpf U Hyaline Cast (Auto) 0 (0-5) /lpf U Epithel Cells (Auto) >30 H (0-5) /lpf Urine Bacteria (Auto) 4+ H (Negative) Imaging Data Radiologist's Impression: Radiology results as stated below per my review and the radiologist's interpretation: XR chest 1V portable CLINICAL HISTORY: weakness mental status change COMPARISON STUDY: 10/05/2013 FINDINGS: The bones soft tissues and hemidiaphragms are normal. The cardiomediastinal silhouette is normal. The lungs are clear. The pulmonary vasculature is normal. IMPRESSION: Negative chest. The above report was generated using voice recognition software. It may contain grammatical, syntax or spelling errors. Electronically signed by: Alistair Avila M.D. 03/31/2019 9:00 AM ECG Data Attestation: I personally reviewed and interpreted this ECG as follows: Indication: chest pain Rate (beats per minute): 78 Rhythm: normal sinus Findings: no ST depression, no ST elevation and no acute ischemic change Blood Pressure Blood Pressure Findings: Low blood pressure Blood Pressure Disposition: further management by hospitalist [facility] Narrative This is a 78-year-old the presents emergency department complaining of diffuse muscle pain. Patient has a history of polymyalgia rheumatica. She is unable to walk. Due to the patient's medical history she was given a dose of Solu-Medrol. She also has a slight elevation in her white blood cell count along with what appears to be urinary tract infection. Based on this patient was given 2 g of Rocephin. I personally attempted to ambulate this patient however she is at risk of falling over due to her weakness. Because of this I did discuss the case with the hospitalist service who agreed to admit the patient. Patient and family were in agreement with the treatment plan. Impression & Plan PMR (polymyalgia rheumatica), UTI (urinary tract infection) Discharge Plan Visit Data *Final* Discharge Date/Time: 03/31/19 12:16 Chief Complaint: Pain (Generalized) ED Provider: Bro Blas Discharge Problem: PMR (polymyalgia rheumatica), UTI (urinary tract infection) Patient Disposition: Admitted As Inpatient Discharge Instructions Interventions: ED Discharge Assessment Last Done: 03/31/19 12:16 The scribe's documentation has been prepared under my direction and personally reviewed by me in its entirety. I confirm that the note above accurately reflects all work, treatment, procedures, and medical decision making performed by me.
[2019-03-31 14:12] LABS: Phosphorus 4.6 mg/dl (2.5-4.9)
[2019-03-31 14:23] LABS: INR 1.1 (0.9-1.1)
[2019-03-31] MEDS: HYDROCORTISONE SOD 50 MG in SYRINGE 0 ML IV SCH ×2 (14:25→21:19)
[2019-03-31 14:39] LABS: Lyme Ab IgG w/WB Rflx Negative (Negative); Lyme Ab IgM w/WB Rflx Negative (Negative)
[2019-03-31] MEDS ORDERED: PNEUMOCOCCAL POLYSACCHARIDES 25 MCG/0.5 ML VIAL/SYR IM ONE (16:00)
[2019-03-31] MEDS ORDERED: PNEUMOCOCCAL ADMINISTRATION CHARGE ONE (16:00)
[2019-03-31] MEDS ORDERED: ENOXAPARIN INJ 30 MG/0.3 ML SYR SQ SCH (21:00)
[2019-04-01] MEDS: HYDROCORTISONE SOD 50 MG in SYRINGE 0 ML IV SCH ×2 (06:22→13:53)
[2019-04-01 06:25] LABS: Basophils # (auto) 0.01 K/uL (0-0.2); Basophils % (auto) 0.1 %; Hematocrit (blood only) 32.1 % (37-47); Immature Granulocytes # (auto) 0.03 K/uL (0.00-0.02); Immature Granulocytes % (auto) 0.2 %; Lymphocytes # (auto) 0.51 K/uL (1.2-3.4); Lymphocytes % (auto) 3.5 %; Mean Corpuscular Hemoglobin 30.9 pg (25-34); Mean Corpuscular Hgb Conc 34.3 g/dL (32-36); Mean Corpuscular Volume 90.2 fL (80-100); Mean Platelet Volume 10.7 fL (7.4-10.4); Monocytes % (auto) 6.2 %; Neutrophils # (auto) 13.05 K/uL (1.4-6.5); Platelet Count 183 K/uL (130-400); RDW Coefficient of Variation 12.5 % (11.5-14.5); RDW Standard Deviation 41.3 fL (36.4-46.3); Red Blood Count 3.56 M/uL (4.2-5.4)
[2019-04-01] MEDS ORDERED: LEVOTHYROXINE SODIUM 75 MCG TABLET PO SCH (06:30)
[2019-04-01 06:52] VITALS: O2SAT 96
[2019-04-01 07:00] LABS: Calcium 8.5 mg/dl (8.5-10.1); Creatinine Clr Calc Pharmacy 27.4 ml/min; Est GFR (African American) 46.7; Est GFR (Non-African American) 40.3
[2019-04-01] MEDS ORDERED: CHOLECALCIFEROL 1,000 UNITS TAB PO SCH (09:00)
[2019-04-01] MEDS ORDERED: cefTRIAXone SODIUM 1,000 MG in DEXTROSE 5% 50 ML IV SCH (09:00)
[2019-04-01] MEDS ORDERED: SERTRALINE HCL 50 MG TABLET PO SCH (09:00)
[2019-04-01] MEDS ORDERED: CeleBREX 200 MG CAP PO SCH (09:00)
[2019-04-01 15:18] VITALS: PULSE 67; TEMP 97.9
--- NOTE | 2019-04-01 16:22 | Discharge Summary ---
Date of Service April 01, 2019 Admission HPI Per Admitting Provider Belinda Saucedo is a pleasant 78-year-old female with past history pertinent for hypothyroidism, polymyalgia rheumatica on chronic prednisone, GERD presenting with 1 day of diffuse body aches, muscle pain, weakness. Patient reports that symptoms began yesterday afternoon. She denies any increase in activity or strenuous activity of late. She reports diffuse myalgias, pain mainly in her upper arms, shoulders, thighs and buttock. She also reports pain in the joints of her hands and shoulders. She reports some weakness of her proximal muscle groups, with difficulty raising her arms above her head to comb her hair and difficulty rising out of a chair. She had a slight headache this morning which has since resolved. She denies fevers but has had some chills. Denies visual deficit, pain with eye movement, focal numbness/weakness, jaw claudication. Patient attempted to ambulate to the restroom while in the ER and required assistance. At baseline she is active and independent. She completes her own housework, gardens and mows her own lawn. No known tick bites, but is concerned for the possibility of Lyme. Patient has a history of polymyalgia rheumatica which was diagnosed approximatel y 4 to 5 years ago. She had one flare of PMR approximately 2 years ago which involved severe pain and weakness of her upper extremities. At that time her prednisone dose was increased and her symptoms resolved. She has been on varying doses of prednisone since being diagnosed. She has been weaning her prednisone for the last 2 to 3 weeks. Her current dose is 1 mg of prednisone every other day. She has seen Rheumatology in the past approximately 2 months ago. ER course: Tylenol 1 g p.o., ceftriaxone 2 g IV, Solu-Medrol 125 mg IV, morphine 4 mg IV Admission Exam Per Admitting Provider General: patient resting, in mild pain, NAD, non-toxic in appearance, AA&O x 4 Skin: warm, dry, intact, no rashes or lesions HEENT: NC/AT, to temporal tenderness, PERRL, EOMI, no pain with eye movement, anicteric sclera, conjunctiva without injection, external ear normal to inspection and nontender, nares patent, moist mucus membranes, dentition intact, no oropharyngeal lesions, neck supple, trachea midline, no LAD, no thyromegaly, no JVD Heart: +S1/S2, regular, no m/r/g Lungs: equal air entry bilaterally, no rales/rhonchi/wheezes Abd: +BS, soft, NT/ND, no masses/organomegaly/ascites Ext: warm, 2+ pulses in UE/LE bilaterally, no clubbing/cyanosis or edema, arthritic changes of hands Neuro: nonfocal, patient AA&O x 4, speech intact, no facial droop, sensation to light touch intact, moving all extremities on command LE 5/5, UE 4/5, required assistance rolling over due to pain and muscle weakness, muscles soft with tenderness on palpation Principal Diagnosis Polymyalgia rheumatica flare, UTI Discharge Exam General: Alert, orientedx3. No acute distress HEENT: NC/AT, PERRLA, EOMI, oropharynx moist. Chest: Nontender to palpation. CV: RRR, Normal s1, s2. No murmurs appreciated Resp: Breath sounds clear bilaterally, no increased effort of breathing. No crackles/rhonchi/rales. Abdomen: Soft, nontender, nondistended. No guarding. No organomegaly appreciated. Extremities: No edema in lower extremities bilaterally. Neuro: 5/5 strength in lower extremitites bilaterally. 3/5 in shoulders/arm, 5/5 forearm strength. Discharge Data Allergies Allergy/AdvReac Type Severity Reaction Status Date / Time No Known Drug Allergies Allergy Verified 03/31/19 08:35 Consultations 03/31/19 10:22 ED Decision to Admit Stat Hospital Course (1) Myalgia: Ms. Saucedo is a pleasant 78yo female admitted for a polymyalgia rheumatica flare and symptomatic UTI on Mar 31 2019 and discharged on Apr 01, 2019 after presenting with 10/10 muscle pain and proximal muscle weakness. Hx of PMR, Hypothyroidism, GERD, Anxiety. PMR -flare likely secondary to acute infection -ESR, CRP elevated -Lyme negative -Solumedrol IV 125mg given in ED; stress dosing of Hydrocortisone 50mg while h ospitalized. -Continued on home Celebrex. -Discharged on Prednisone 10mg daily for the next week with strict instructions to follow up with PCP/methodologist for continued dosing. Acute complicated UTI -Pt with UA showing leukocyte esterase, nitrites and 4+ bacteria -Given one dose of rocephin 1g while hospitalized -Discharged on a week of Bactrim DS to be taken q12h Hypothyroidism -TSH currently 1.73 -stable on discharge -continue Synthroid at home dose Hypertension -Pt with hypotension on admission -concern for adrenal insufficiency given prolonged steroid use; random cortisol of 32. -On discharge, BP bounced back and was within elevated range GERD -continue home omeprazole -stable Anxiety -continue home sertraline -stable Total Time Total Time Spent Total Time Spent (In Minutes): Less than 30 Discharge Plan Discharge Items Patient Disposition: Home - Self-Care Reason For Visit: WEAKNESS, MYALGIAS Discharge Diagnosis: PMR flare, UTI Discharge Goals: Decrease discomfort, Improve disease control and Improve function Activity: Per 'Additional Instructions' section Non-emergency contact: Primary Care Provider Call non-emergency contact if: your symptoms worsen and you have a fever Follow-up/Referrals: Danish Montilla MD [Primary Care Provider] - Diet: Heart Healthy Addtl Provider Instructions: You were treated for an acute flare of your polymyalgia rheumatica with Hydrocortisone 50mg and your symptoms improved. You were also treated for a urinary tract infection with antibiotics. Polymyalgia Rheumatica We are discharging you home with Prednisone 10mg. Please take one daily for the next week. -Please STOP taking your home dose of Prednisone 1mg. -It is very important that you follow up with your primary care provider in the next week so continued Prednisone dosage can be assessed. -Please followup with your primary care provider within the next week after discharge as it is important for you to continue your steroid medication after that time. Your primary care provider will determine what dose you will be on at that time. -Please return should you develop an exacerbation of symptoms or develop fevers, chills, or night sweats. Urinary Tract Infection -You were treated for a urinary tract infection with the antibiotic ceftriaxone while hospitalized. -You are being discharged with the antibiotic Bactrim DS. Please take one pill twice daily for the next 7 days. -Please followup with your PCP in the next week for this as well to ensure symptom resolution. Prescriptions: New prednisone 10 mg tablet 10 mg PO DAILY Qty: 7 RF: 0 sulfamethoxazole-trimethoprim [Bactrim DS] 800-160 mg tablet 1 tab PO BID 7 Days Qty: 7 RF: 0 Continued candesartan-hydrochlorothiazid 16-12.5 mg tablet 0.5 tab PO QAM RF: 0 celecoxib 200 mg capsule 200 mg PO QAM RF: 0 levothyroxine 75 mcg tablet 75 mcg PO QAM RF: 0 lorazepam 0.5 mg tablet 0.5 mg PO DAILY PRN (Reason: Anxiety) RF: 0 meclizine 25 mg tablet 25 mg PO TID PRN (Reason: dizziness) RF: 0 omeprazole 20 mg capsule,delayed release(DR/EC) 20 mg PO HS PRN (Reason: Acid Reflux) RF: 0 sertraline 50 mg tablet 50 mg PO QAM RF: 0 cholecalciferol (vitamin D3) 2,000 unit capsule 2,000 units PO QAM RF: 0 acetaminophen [Tylenol Extra Strength] 500 mg Tablet 1,000 mg PO Q6H PRN (Reason: Pain) RF: 0 aspirin 500 mg Tablet 1,000 mg PO UD RF: 0 Discontinued prednisone 1 mg tablet 1 mg PO QAM RF: 0 Stand-Alone Forms: [facility] Discharge Orders: Discharge Order (Routine); Ordered 04/01/19 Ordered By: Onelia Marks Admission Data Admit Date/Time: 03/31/19 11:18 Attending Provider: Jarvis Melo Admit Provider: Belinda Sánchez Primary Care Provider: Danish Montilla Other Providers: Belinda Sánchez Service: Medical Other Interventions: Discharge Summary Assessment (RN) Last Done: 04/01/19 16:38 DC Date/Time DO NOT enter until pt leaves facility: 04/01/19 16:57 Supervising Physician Co-Signing Physician Notes I personally examined the patient and verified all rock points of history and exam, discussed case, and agree with decision making with Dr Marks. Feeling much better. Does admit to some dysuria Vitals noted, in general she is awake and alert pleasant no distress. HEENT normal cephalic atraumatic mucous membranes moist. Breathing unlabored no accessory muscle use good effort. Skin shows no rashes no pallor or icterus. Mildly moonlike face. Polymyalgia rheumatica flareeither due to reduction in prednisone dosing to levels lower than her disease would require to maintain symptom control, versus related to physiologic stress from urinary tract infection, versus both. Stable for home. 10 mg prednisone for now close PCP follow-up to reinitiate weaning Urinary tract infectionstable for home. Antibiotics as above.
[2019-04-01 16:42] VITALS: BP 116/58
== END 2019-04-01 16:57 | disposition home or self-care (01) ==
LOC: 2N 08:12 → ED 08:12 → SUATTDRO 11:18 → 2N 12:16

== ENCOUNTER 2019-05-03 10:02 | Inpatient (IN) ==
--- NOTE | 2019-04-15 14:27 | PAT Medication Instructions ---
Medication Instructions Date of Service April 15, 2019 Home Medications Medication Instructions Recorded loperamide-simethicone 2 mg-125 mg 2 tab PO Q3H PRN #30 tab 04/05/19 tablet candesartan 16 mg-hydrochlorothiazide 12.5 mg tablet 0.5 tab PO QAM celecoxib 200 mg capsule 200 mg PO QAM cholecalciferol (vitamin D3) 2,000 unit capsule 2,000 units PO QAM levothyroxine 75 mcg tablet 75 mcg PO QAM lorazepam 0.5 mg tablet 0.5 mg PO DAILY PRN meclizine 25 mg tablet 25 mg PO TID PRN omeprazole 20 mg capsule,delayed release 20 mg PO HS PRN biotin 1,000 mcg chewable tablet 1,000 mcg PO QAM loperamide-simethicone 2 mg-125 mg tablet 2 tab PO Q3H PRN prednisone 10 mg PO QAM sertraline 75 mg PO QAM ASK your surgeon for instructions celecoxib 200 mg capsule 200 mg PO QAM STOP taking 2 weeks before surgery (or as soon as possible if surgery is within 2 weeks) biotin 1,000 mcg chewable tablet 1,000 mcg PO QAM DO NOT take the morning of surgery candesartan 16 mg-hydrochlorothiazide 12.5 mg tablet 0.5 tab PO QAM cholecalciferol (vitamin D3) 2,000 unit capsule 2,000 units PO QAM loperamide-simethicone 2 mg-125 mg tablet 2 tab PO Q3H PRN Take morning of surgery With a small sip of water, OTHERWISE NOTHING TO EAT OR DRINK AFTER MIDNIGHT: levothyroxine 75 mcg tablet 75 mcg PO QAM lorazepam 0.5 mg tablet 0.5 mg PO DAILY PRN (if needed) meclizine 25 mg tablet 25 mg PO TID PRN (if needed) prednisone 10 mg PO QAM sertraline 75 mg PO QAM Take evening before surgery lorazepam 0.5 mg tablet 0.5 mg PO DAILY PRN (if needed) meclizine 25 mg tablet 25 mg PO TID PRN (if needed) omeprazole 20 mg capsule,delayed release 20 mg PO HS PRN (if needed) loperamide-simethicone 2 mg-125 mg tablet 2 tab PO Q3H PRN (if needed) Other Notes If you have any questions please call us at [phone] or [phone] or [phone] or [phone]
--- NOTE | 2019-04-17 10:13 | Anesthesiology Consultation ---
Date of Service April 17, 2019 Assessment & Plan (1) Encounter for pre-operative examination: Chart Review Chart Review: Acceptable Risk for Surgery (pending surgeon-ordered PCP clearance scheduled 04/24 (CAITY Pichardo; [facility] – [place], [place])) History Surgery Operation Date: 05/03/19 07:00 Proposed Procedures p Left Total Shoulder Arthroplasty - Alexandr Ramirez MD Height/Weight Height: 4 ft 10 in Weight: 55 kg Allergies Allergy/AdvReac Type Severity Reaction Status Date / Time No Known Drug Allergies Allergy Verified 04/07/19 08:18 Medications Home Medications Medication Instructions Recorded Confirmed Last Taken candesartan 16 0.5 tab PO QAM tab 02/16/19 04/07/19 03/30/19 mg-hydrochlorothiazide 12.5 mg tablet celecoxib 200 mg capsule 200 mg PO QAM 02/16/19 04/07/19 03/30/19 cholecalciferol (vitamin D3) 2,000 2,000 units PO QAM 02/16/19 04/07/19 03/30/19 unit capsule levothyroxine 75 mcg tablet 75 mcg PO QAM 02/16/19 04/07/19 03/31/19 lorazepam 0.5 mg tablet 0.5 mg PO DAILY PRN 02/16/19 04/07/19 Unknown meclizine 25 mg tablet 25 mg PO TID PRN 02/16/19 04/07/19 Unknown omeprazole 20 mg capsule,delayed 20 mg PO HS PRN 02/16/19 04/07/19 03/27/19 release biotin 1,000 mcg chewable tablet 1,000 mcg PO QAM 04/05/19 04/07/19 Unknown loperamide-simethicone 2 mg-125 mg 2 tab PO Q3H PRN #30 tab 04/05/19 04/07/19 Unknown tablet prednisone 10 mg PO QAM 04/07/19 04/07/19 Unknown sertraline 75 mg PO QAM 04/07/19 04/07/19 Unknown clobetasol 0.05 % topical ointment 1 appln TOP DAILY gm 04/16/19 04/16/19 Unk nown diclofenac 1 % topical gel 2 gm TOP QID PRN #100 gm 04/16/19 04/16/19 Unknown prednisone 5 mg tablet 7.5 mg PO DAILY #30 tab 04/16/19 04/16/19 Unknown Past Medical History Medical History Anxiety Chronic diarrhea Fatigue GERD without esophagitis controlled HTN (hypertension) Hypothyroidism Myalgia PMR (polymyalgia rheumatica) on chronic prednisone 7.5mg daily* SI joint arthritis Exercise / Class Metabolic Activity II 4-5 Yardwork/Stairs/Walk up hill Past Family History Family History Father Renal failure Cardiovascular disease (Premature) Acute myocardial infarction Diabetes Colon cancer Mother Hypertension Brother Acute myocardial infarction Obesity Malignant neoplasm of pancreas Sister Colon cancer Daughter Adult celiac disease Past Surgical History Surgical History H/O colonoscopy H/O vaginal hysterectomy History of ERCP History of carpal tunnel release of both wrists History of cystocele S/P REPAIR History of neck surgery FUSION History of rotator cuff surgery RIGHT/LEFT Hx of cataract surgery B/L Hx of cholecystectomy Hx of tonsillectomy Past Anesthesia History No Hx of Anesthesia Complications and No Family Hx of Anesthesia Complications History of PONV No Hx of PONV and Hx of Motion Sickness Social History Smoking Status: Never smoker Do You Dip or Chew Tobacco: No Hx Alcohol Use: Yes Alcohol type: wine alcohol intake frequency: other Alcohol Intake Frequency Comment: OCCASSIONAL WINE WITH DINNER Hx Substance Use: No substance use type: does not use Review of Systems Reflux controlled. Patient denies chest pain, shortness of breath, dyspnea on exertion, cough, wheezing, palpitations. Physical Exam Vital Signs VITALS BP 143/86 P 58 TEMP 98.0 SP02 97%RA RESP 18 PHYSICAL Full neck and c-spine range of motion. Full TMJ range of motion. TMD 2.5 finger breaths Mallampati Score 2 Dentition: intact, crown on side Lungs: clear throughout to auscultation Cardiac: regular rate and rhythm, no murmurs noted Spine: normal Carotid arteries: negative bruit Extremities: no edema Testing Laboratory Results 04/17/19 10:27 PT 9.8 Seconds (9.0-12.0) 04/17/19 10:27 INR 1.0 (0.9-1.1) 04/17/19 10:27 APTT 24.2 Seconds (21.0-31.0) 04/17/19 10:27 Hemoglobin A1c 5.9 % (4.5-5.6) H 04/17/19 10:27 Urine Color Yellow 04/17/19 10:27 Urine Appearance Cloudy (Clear) A 04/17/19 10:27 Urine pH 5.0 (4.5-7.5) 04/17/19 10:27 Ur Specific [place] 1.025 (1.000-1.030) 04/17/19 10:27 Urine Protein Negative (Negative) 04/17/19 10:27 Urine Glucose (UA) Negative (Negative) 04/17/19 10:27 Urine Ketones Negative (Negative) 04/17/19 10:27 Urine Nitrite Negative (Negative) 04/17/19 10:27 Ur Leukocyte Esterase 2+ (Negative) H 04/17/19 10:27 Urine WBC (Auto) >30 /hpf (0-5) H 04/17/19 10:27 Urine RBC (Auto) 0-4 /hpf (0-4) 04/17/19 10:27 U Hyaline Cast (Auto) 10-30 /lpf (0-5) H 04/17/19 10:27 U Epithel Cells (Auto) >30 /lpf (0-5) H 04/17/19 10:27 Urine Bacteria (Auto) Negative (Negative) 04/17/19 10:27 Blood Type B Negative 04/17/19 10:27 Antibody Screen POSITIVE A 04/17/19 10:27 *Blood bank aware of positive antibodies- nothing further needed from PAT* 04/01/19 SODIUM 141 POTASSIUM 4.0 CHLORIDE 111 CO2 21 BUN 40 CREATININE 1.28 GLUCOSE 123 Electrocardiogram Date: 03/31/19 NSR at 78bpm. Low voltage QRS. Possible inferior infarct. Cannot rule out anterior infarct (cited on/before 10/05/13). Per cardiology, "No significant change was found" when EKG compared to 10/09/13 EKG. Chest X-Ray Date: 03/31/19 Findings: + NAD
[2019-04-17 11:32] LABS: Basophils # (auto) 0.05 K/uL (0-0.2); Basophils % (auto) 0.5 %; Eosinophils # (auto) 0.12 K/uL (0-0.5); Eosinophils % (auto) 1.1 %; Hematocrit (blood only) 40.9 % (37-47); Hemoglobin 13.8 g/dL (12.0-16.0); Immature Granulocytes # (auto) 0.04 K/uL (0.00-0.02); Immature Granulocytes % (auto) 0.4 %; Lymphocytes # (auto) 1.16 K/uL (1.2-3.4); Lymphocytes % (auto) 10.5 %; Mean Corpuscular Hemoglobin 31.5 pg (25-34); Mean Corpuscular Hgb Conc 33.7 g/dL (32-36); Mean Corpuscular Volume 93.4 fL (80-100); Mean Platelet Volume 9.9 fL (7.4-10.4); Monocytes # (auto) 0.44 K/uL (0.11-0.59); Neutrophils # (auto) 9.23 K/uL (1.4-6.5); Neutrophils % (auto) 83.5 %; Platelet Count 249 K/uL (130-400); RDW Coefficient of Variation 13.4 % (11.5-14.5); Red Blood Count 4.38 M/uL (4.2-5.4); White Blood Count 11.04 K/uL (4.8-10.8)
[2019-04-17 11:34] LABS: Appearance Urine Cloudy (Clear); Bacteria Urine Automated Negative (Negative); Bilirubin Urine Negative (Negative); Blood Urine Negative (Negative); Color Urine Yellow; Epithelial Cell Urine Auto >30 /lpf (0-5); Glucose Urine UA Negative (Negative); Ketones Urine Negative (Negative); Leukocyte Esterase Urine 2+ (Negative); Nitrite Urine Negative (Negative); Protein Urine Negative (Negative); RBC Urine Automated 0-4 /hpf (0-4); Specific Gravity Urine 1.025 (1.000-1.030); Urobilinogen Urine Negative (Negative); WBC Urine Automated >30 /hpf (0-5)
[2019-04-17 11:44] LABS: Partial Thromboplastin Ratio 0.9; Partial Thromboplastin Time 24.2 Seconds (21.0-31.0); Prothrombin Time 9.8 Seconds (9.0-12.0)
[2019-04-17 12:37] LABS: Estimated Average Glucose 123 mg/dl; Hemoglobin A1C 5.9 % (4.5-5.6)
--- NOTE | 2019-05-02 18:31 | History and Physical Report ---
DATE OF ADMISSION: 05/03/2019 CHIEF COMPLAINT: Chronic left shoulder pain. HISTORY OF PRESENT ILLNESS: This is a 78-year-old female patient of Dr. Ramirez'samantha complaining of chronic left shoulder pain, longstanding, now progressively getting worse. The patient has failed conservative treatment and has been diagnosed with left shoulder end-stage osteoarthritis with possible rotator cuff compromise. At this point in time, patient wished to proceed with a possible reverse total shoulder arthroplasty. PAST MEDICAL HISTORY: Hypertension, polymyalgia rheumatica, hypothyroidism, osteoarthritis, spine problems, upper back problems, history of kidney stones. PAST SURGICAL HISTORY: Hysterectomy, tonsillectomy, carpal tunnel, spinal surgery, rotator cuff bilaterally, gallbladder. SOCIAL HISTORY: Nonsmoker, nondrinker. FAMILY HISTORY: Noncontributory. REVIEW OF SYSTEMS: Chronic left shoulder pain and weakness. Otherwise, denies any shortness of breath, chest pain, nausea, vomiting or other joint complaints. MEDICATIONS: 1. Vitamin D3 2000 units daily. 2. Prednisone 2.5 mg daily. 3. Imodium as needed. 4. Candesartan/hydrochlorothiazide 32/12.5 0.5 tab daily. 5. Levothyroxine 75 mcg daily. 6. Sertraline 50 mg daily. ALLERGIES: No known drug allergies. PHYSICAL EXAMINATION: GENERAL: Well-developed, well-nourished 78-year-old female in no acute distress. She is alert and oriented x3 and pleasant. HEENT: Normocephalic, atraumatic. Extraocular motions are intact. Pupils are equal and reactive to light. HEART: Regular rate and rhythm, no murmurs. LUNGS: Clear. ABDOMEN: Soft, nontender, bowel sounds present. EXTREMITIES: Left shoulder reveals range of motion is full with pain and crepitation. She does have atrophy noted on her left shoulder. She has 3/5 strength globally. NEUROLOGIC: Neurovascularly, she is intact in her left upper extremity. DIAGNOSES: Left shoulder end-stage osteoarthritis with rotator cuff compromise. She has a history of hypertension, polymyalgia rheumatica, hypothyroidism, osteoarthritis, spine problems, upper back problems, kidney stones. PLAN: The patient was advised of her diagnosis. Indications, risks, benefits, postop course have all been reviewed. The patient wished to proceed with a left total shoulder arthroplasty versus reverse total shoulder arthroplasty. Necessary consent forms, preoperative testing and clearances will be obtained. [facility]
[~2019-05-03 10:02] MED LIST changes: +ACETAMINOPHEN 500 MG TAB PO SCH; -CALC-354 PO; -CAND1TAB PO; +CEFAZOLIN 1000MG 1,000 MG/7.5 ML SYR IV SCH; -CHOL20009 PO; -CHOLPOW PO; -CLB/200 PO; +CeleBREX 200 MG CAP PO SCH; -DICL1GEL12; +FAMOTIDINE 20 MG TAB PO SCH; +GABAPENTIN 300 MG CAP PO SCH; -LEVO100T7 PO; -LORA-741 PO; +LR 15ML/HR IV SCH; -MECL1TAB42 PO; +METOCLOPRAMIDE HCL 10 MG TABLET PO SCH; +ROPIVACAINE 0.5% 5 MG/ML 30 ML VIAL ONE; -SERT50TA PO; +dexAMETHasone 4 MG TAB PO SCH
[2019-05-03] MEDS ORDERED: DEXAMETHASONE SOD INJ 4 MG/ML VIAL ONE (10:38)
[2019-05-03] MEDS ORDERED: ONDANSETRON INJ 2 MG/ML 2 ML VIAL ONE ×2 (10:38→16:02)
[2019-05-03] MEDS ORDERED: LIDOCAINE HCL 2% 2 ML VIAL/AMP(20MG/ML) INFIL ONE (10:38)
[2019-05-03] MEDS ORDERED: MIDAZOLAM HCL 1 MG/ML 2ML VIAL ONE (10:38)
[2019-05-03] MEDS ORDERED: NEOSTIGMINE METHYLSULFATE 5 MG/5 ML SYR ONE (10:38)
[2019-05-03] MEDS ORDERED: GLYCOPYRROLATE 0.2 MG/ML VIAL ONE (10:38)
[2019-05-03] MEDS ORDERED: fentaNYL citrate 100 MCG/2 ML VIAL ONE (10:38)
[2019-05-03] MEDS ORDERED: PROPOFOL IV EMULSION 10 MG/ML 20 ML VIAL IV ONE (10:38)
[2019-05-03] MEDS ORDERED: ROCURONIUM BROMIDE 10 MG/ML 5 ML VIAL ONE (11:07)
[2019-05-03] MEDS ORDERED: LARYING-O-JET KIT (LTA) ONE (11:07)
[2019-05-03] MEDS ORDERED: ONDANSETRON INJ 2 MG/ML 2 ML VIAL IV PRN ×2 (11:37→17:34)
[2019-05-03] MEDS ORDERED: fentaNYL citrate 100 MCG/2 ML VIAL IV PRN (11:37)
[2019-05-03] MEDS ORDERED: ePHEDrine sulfate 50 MG/ML AMP IV PRN (11:37)
[2019-05-03] MEDS ORDERED: ATROPINE SULFATE 0.1 MG/ML 10ML SYR IV PRN (11:37)
--- NOTE | 2019-05-03 12:37 | History & Physical Bridge Note ---
Date of Service May 03, 2019 History & Physical Bridge Note I have examined the patient, reviewed the History & Physical and in the interval since the performance of the History & Physical I have noted the following changes of clinical significance: Not noted in the history and physical was the fact that the patient has partial tearing of the rotator cuff likely less than 50% thickness and marked biceps tendinopathy with tenosynovitis chronic. This will require biceps tenodesis in addition to total shoulder replacement. Will address any surgical procedure to the rotator cuff intraoperatively.
[2019-05-03] MEDS ORDERED: EpINEphrine HCL INJ 1 MG/ML 1ML SYRINGE ONE (13:00)
[2019-05-03] MEDS ORDERED: BACITRACIN INJ 50,000 UNIT VIAL ONE (13:00)
--- NOTE | 2019-05-03 16:41 | Post Operative Brief Note ---
Immediate Post Op Note v1 Date of Surgery May 03, 2019 Pre & Post Diagnosis Operation Date: 05/03/19 12:50 Pre-Op Diagnosis: Left shoulder Osteoarthritis, partial tear rotator cuff, history rotator cuff repair decompression distal clavicle excision, biceps tenosynovitis Post-Op Diagnosis: Left shoulder Osteoarthritis, partial tear rotator cuff, biceps tenosynovitis with bicipital groove osteophytes, history of rotator cuff repair with retained hardware (suture anchor), status post decompression distal clavicle excision, subacromial bursitis. Procedure Operation Date: 05/03/19 12:50 Actual Procedures p Left Total Shoulder Arthroplasty, with biceps tenodesis, removal hardware (Left) - Alexandr Ramirez MD Surgeon Alexandr Ramirez MD Produce Runner Ti NOLEN Estimated Blood Loss 75 Findings Consistent with Post-Op Diagnosis Specimens Suture anchor Drains Hemovac Drain Anesthesia Type General Regional Complications none Disposition Accompanied Patient To Recovery: No Disposition: Recovery Room Overlapping Procedure I was immediately available: during the entire case.
--- NOTE | 2019-05-03 16:56 | Operative Report ---
Post Operative Report Pre & Post Diagnosis Operation Date: 05/03/19 12:50 Pre-Op Diagnosis: Left shoulder Osteoarthritis glenohumeral joint, history of rotator cuff repair with subacromial decompression distal clavicle excision, partial tear rotator cuff, biceps tenosynovitis, subacromial bursitis. Post-Op Diagnosis: Same including retained hardware status post rotator cuff repair and biceps groove osteophytes Procedure Operation Date: 05/03/19 12:50 Actual Procedures p Left Total Shoulder Arthroplasty, with biceps tenodesis, removal hardware (Left) - Alexandr Ramirez MD Surgeon Alexandr Ramirez MD Practice Consultant Ti NOLEN Estimated Blood Loss 75 Findings Consistent with Post-Op Diagnosis Specimens Suture anchor Drains 2 Hemovac Anesthesia Type General Regional Complications none Disposition Accompanied Patient To Recovery: No Disposition: Recovery Room Indications 78-year female with progressive left shoulder pain and stiffness. Patient has history of rotator cuff repair decompression distal clavicle excision in the past. MRI demonstrates partial tear rotator cuff less than 50% thickness with severe end-stage glenohumeral osteoarthritis and subacromial bursitis and biceps tenosynovitis Description of Procedure The patient was taken to the operating room and anesthetized under a general and regional block anesthesia. A towel roll was placed under the medial border of the scapula of the left shoulder. The patient's head was placed on a foam headrest and protective eyewear was placed and the extremities were well padded. The arm was draped free in order to manipulate the shoulder as necessary. The shoulder exam demonstrated decreased extra rotation on the 25 degrees external rotation and 70 degrees of abduction and forward elevation to 140 degrees. There is [id number] crepitation. Small arthroscopic scars from prior surgery.. The shoulder was sterilely prepped and draped in the usual sterile fashion. An anterior deltopectoral approach was performed. A longitudinal incision was made in the interval. The skin was incised sharply and subcutaneous tissues dissected down to the fascia. The cephalic vein was identified and retracted laterally with the deltoid. Any crossing veins were tied off with silk ties and divided. The clavipectoral fascia was divided at the lateral margin of the conjoined tendon and divided up to the level of the coracoacromial ligament which was preserved. The upper 1 cm of the pectoralis was released for inferior exposure. The biceps tendon findings demonstrated significant biceps tenosynovitis extending up into the bicipital groove with large bicipital groove bone spurs. The rotator cuff tendon findings demonstrated bursal surface the rotator cuff was completely intact with rotator cuff repair being completely intact. There was some subacromial bursitis noted. The subscapularis tendon was intact.. The circumflex vessels were identified and tied off with silk ties and divided laterally. The fibers and subscapularis were split longitudinally at the level of the circumflex vessels down to the capsule and then reflected off the inferior capsule using a Kitner elevator. The axillary nerve was identified with a tug test and protected with a blunt Lawrence retractor. The rotator interval was opened up and extended down to the glenoid. The biceps tendon was identified and tenodesed to the pectoralis tendon with [id number] #2 FiberWire sutures in the proximal biceps was resected. The subscapularis tendon was taken down with a trans-tendinous incision leaving a 1 cm cuff of tissue for repair on the lesser tuberosity. The incision was carried down to the tendon and the capsule and a #1 Vicryl suture was placed into the free end of the subscapularis tendon. The capsule was subperiosteally dissected off the inferior neck of the humerus exposing the small to medium sized humeral osteophytes . The humeral head was eburnated bone. There was concentric type A wear. The osteophytes were excised with an artist chisel and a rongeur. The capsular release along the inferior neck of the humerus was completed. The humerus was then retracted posterior to the glenoid with a Fukuda retractor. The remainder of the biceps tendon and labrum was resected. The glenoid findings demonstrated concentric wear eburnated bone an anterior inferior osteophyte. I did an anterior inferior and posterior inferior release with electrocautery on bone and a Eller elevator with the axillary nerve continuing to be protected with the blunt Hohmann retractor inferiorly. When the releases were completed and the humeral head was exposed with some extension and external rotation and in anatomic head cut was made using the oscillating saw. The humeral head was then retracted posterior to the glenoid with Hohmann retractors and Bankart retractor placed anteriorly. A central drill hole was made into the glenoid. The glenoid was sized for a size 30 radius small Cortiloc perform glenoid component. The Tornier total shoulder arthroplasty system was used and the Cortiloc perform glenoid component was chosen. The glenoid was reamed and the central drill widened and the guide for the peg holes was placed in the peg holes were drilled and a trial component was placed with a tight fit. The trial was removed and the glenoid was i rrigated with pulsatile lavage antibiotic solution and the drill holes were dried and packed with epinephrine-soaked tampons for hemostasis. The [place] G cement was vacuum mixed. The final component was cemented into position and held in position with pressure until the cement cured. Attention was taken to the humeral preparation. First the old suture anchor was removed from within the greater tuberosity area. This allowed placement of A centralizing awl was used in the canal followed by broaches up to a size 2A standard. This had the appropriate fit and fill. A size 43 x 16 high offset millimeter humeral head was then used. It was rotated into appropriate position. A trial reduction was performed and the shoulder was stable. The trial was removed and the humerus and canal were irrigated with antibiotic solution with bacitracin. 3 drill holes were made into the hard bone in the bicipital groove lateral to the lesser tuberosity and 3 #5 FiberWire transosseous sutures were placed for repair of the subscapularis. After further irrigation of the canal and the final components were assembled. The final components were the Tornier ascend flex 2 A standard stem assembled to the 43 x 16 high offset head. The implant was then impacted into the humerus with a tight press-fit. The humerus was reduced to the glenoid and stability verified. The subscapularis was repaired with the #5 FiberWire sutures in a Arturo-Bartolo suture technique and lateral row fixation with [id number] #2 FiberWire in the soft tissue. The rotator interval was closed and maximal external rotation. The pectoralis was then closed with [id number] #2 FiberWire suture. 2 Hemovac drains were placed. The deltopectoral interval was closed with [id number] #1 Vicryl sutures. The subcutaneous tissues were closed with interrupted 2-0 Vicryl and the skin was closed with onel and a sterile dressing was applied. The patient tolerated the procedure well. Ti NOLEN my physician after school program assistant, assisted in soft tissue retraction instrument management suture management and assisted in the subcutaneous and skin closure and will participate in the postoperative care the patient. I attest to the content of the Intraoperative Record and any orders documented therein. Any exceptions are noted below.
--- NOTE | 2019-05-03 17:10 | Anesthesiology Progress Note ---
Date of Service May 03, 2019 Anesthesia Post Procedure Vital Signs Vital Signs: Temp Pulse Pulse Resp BP Pulse Ox 05/03/19 17:08 97.7 F 85 19 132/58 L 99 05/03/19 16:58 81 16 142/66 H 99 05/03/19 16:50 77 19 150/62 H 98 05/03/19 16:42 98.4 F 83 18 161/62 H 98 05/03/19 10:38 97.9 F 61 18 149/97 H 98 Transfer of Care Handoff Completed per policy Notes Mental Status: alert / awake / arousable and participated in evaluation Patient Amnestic to Procedure: Yes Nausea / Vomiting: adequately controlled Pain: adequately controlled Airway Patency, RR, SpO2: stable & adequate BP & HR: stable & adequate Hydration State: stable & adequate Anesthetic Complications: no major complications apparent and Pt Satisfied with anesthetic care
--- NOTE | 2019-05-03 17:19 | XRay Report ---
XR shoulder LT min 2V routine CLINICAL HISTORY: 78 years-old Female presenting with Post shoulder surgery. TECHNIQUE: Frontal and transcatheter Y views of the left shoulder were obtained. COMPARISON: Correlation made to chest x-ray from 07/16/2016. FINDINGS: Postsurgical changes of left shoulder arthroplasty. No malalignment or periprosthetic fracture. Mild widening of the acromioclavicular joint is chronic. A surgical drain is in place. Expected soft tissu e emphysema. Overlying skin onel. Minimal left basilar opacity. Cervical fusion hardware noted. IMPRESSION: 1. Expected postsurgical appearance status post left shoulder arthroplasty. 2. Suspected left basilar atelectasis. Electronically signed by: Danish Clemens M.D. 05/03/2019 5:18 PM
[2019-05-03] MEDS ORDERED: bisacodyL 10 MG SUPP PR PRN (17:34)
[2019-05-03] MEDS ORDERED: LOPERAMIDE HCL 2 MG CAP PO PRN (17:34)
[2019-05-03] MEDS ORDERED: MECLIZINE HCL 25 MG TAB PO PRN (17:34)
[2019-05-03] MEDS ORDERED: NALOXONE HCL 0.4 MG/1 ML VIAL/CARP IV PRN (17:34)
[2019-05-03] MEDS ORDERED: HYDROmorphone INJ 0.5 MG/0.5 ML SYR IV PRN (17:34)
[2019-05-03] MEDS ORDERED: MAGNESIUM HYDROXIDE SUSP 30 ML UDC PO PRN (17:34)
[2019-05-03] MEDS ORDERED: LORazepam 0.5 MG TAB PO PRN (17:34)
[2019-05-03] MEDS ORDERED: SODIUM CHLORIDE 0.9% 1000ML 1,000 ML IV SCH (17:34)
[2019-05-03] MEDS ORDERED: PANTOprazole 40 MG TAB PO PRN (17:34)
[2019-05-03] MEDS ORDERED: INFLUENZA VIRUS QUAD VACCINE 0.5 ML SYR IM ONE (19:00)
[2019-05-03] MEDS ORDERED: INFLUENZA ADMINISTRATION CHARGE ONE (19:00)
[2019-05-03] MEDS: DOCUSATE SODIUM 100 MG CAP PO SCH (20:48)
[2019-05-03] MEDS: SENNA 8.6 MG TAB PO SCH (20:48)
[2019-05-03] MEDS: CEFAZOLIN 1000MG 1,000 MG/7.5 ML SYR IV SCH (21:13)
[2019-05-03] MEDS: ACETAMINOPHEN 500 MG TAB PO SCH (21:14)
--- NOTE | 2019-05-03 21:20 | Hospitalist Consultation ---
Date of Consultation May 03, 2019 Assessment & Plan (1) S/P rotator cuff repair: 78 y/o F who was admitted on 05/03 s/p L shoulder with Dr. Ramirez Pre-op Hb 13.8 As per ortho (2) Anxiety: continue home meds (3) Hypothyroid: continue home meds (4) PMR (polymyalgia rheumatica): Prednisone 7.5mg QD as prior (5) HTN (hypertension): continue home meds (6) GERD (gastroesophageal reflux disease): continue home meds (7) DVT prophylaxis: As per ortho History of Present Illness Attending Physician: Alexandr Ramirez MD History of Present Illness 78 y/o F who was admitted on 05/03 s/p L shoulder with Dr. Ramirez. Pt is doing well post-op. Tolerating PO without issue. Pt denies fever, SOB, chest pain, abd pain, n/v/c/d, LE swelling or pain. No pain to shoulder yet. Allergies Allergy/AdvReac Type Severity Reaction Status Date / Time No Known Drug Allergies Allergy Verified 05/03/19 10:29 Home Medications Home Medications Medication Instructions Recorded Confirmed Type candesartan 16 0.5 tab PO QAM tab 02/16/19 05/03/19 History mg-hydrochlorothiazide 12.5 mg tablet cholecalciferol (vitamin D3) 2,000 2,000 units PO QAM 02/16/19 05/03/19 History unit capsule biotin 1,000 mcg chewable tablet 1,000 mcg PO QAM 04/05/19 05/03/19 History loperamide-simethicone 2 mg-125 mg 2 tab PO Q3H PRN #30 tab 04/05/19 05/03/19 Rx tablet diclofenac 1 % topical gel 2 gm TOP QID PRN #100 gm 04/16/19 05/03/19 History prednisone 5 mg tablet 7.5 mg PO DAILY #30 tab 04/16/19 05/03/19 History celecoxib 200 mg capsule 200 mg PO QAM #90 cap 04/24/19 05/03/19 Rx lorazepam 0.5 mg tablet 0.5 mg PO DAILY PRN #30 tab 04/24/19 05/03/19 Rx meclizine 25 mg tablet 25 mg PO TID PRN #30 tab 04/24/19 05/03/19 Rx omeprazole 20 mg capsule,delayed 20 mg PO HS PRN #90 cap 04/24/19 05/03/19 Rx release sertraline 100 mg tablet 100 mg PO QAM #90 tab 04/24/19 05/03/19 Rx levothyroxine 75 mcg tablet 75 mcg PO QAM #90 tab 04/26/19 05/03/19 Rx Patient History Medical History Anxiety Chronic diarrhea Fatigue GERD without esophagitis controlled HTN (hypertension) Hypothyroidism Myalgia PMR (polymyalgia rheumatica) on chronic prednisone 7.5mg daily* SI joint arthritis Surgical History History of carpal tunnel release of both wrists History of neck surgery FUSION History of rotator cuff surgery RIGHT/LEFT H/O colonoscopy H/O vaginal hysterectomy History of ERCP History of cystocele S/P REPAIR Hx of cataract surgery B/L Hx of cholecystectomy Hx of tonsillectomy Family History Father Renal failure Cardiovascular disease (Premature) Acute myocardial infarction Diabetes Colon cancer Mother Hypertension Brother Acute myocardial infarction Obesity Malignant neoplasm of pancreas Sister Colon cancer Daughter Adult celiac disease Social History Preferred Language: Wolof Communication Ability: Effective 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 Required: No Beliefs That Will Affect Care: Hoahaoism Hoahaoism Beliefs: gnosticist marital status: Current Living Situation: Spouse Other Information That Helps Us Care for You: No Feels Safe at Home: Yes Smoking Status: Never smoker Do You Dip or Chew Tobacco: No ; Hx Alcohol Use: Yes Alcohol type: wine Hx Substance Use: No Review of Systems Review of Systems: Pertinent positives and negatives reviewed in HPI--all others negative Physical Exam Constitutional: WD/WN, vitals as above Eyes: normal visual agudelo by confrontation and + anicteric sclerae Neck: normal visual inspection and trachea midline Respiratory: normal respiratory effort, lungs clear to auscultation Cardiovascular: Rate/Rhythm: regular rate and regular rhythm Gastrointestinal (Abdomen): Inspection/Auscultation: abdomen not distended Percussion/Palpation: abdomen soft; abdomen nontender Musculoskeletal: Head/Neck/Chest: normocephalic and head atraumatic negative for edema, peripheral pulses intact Skin: no rashes, warm and dry Neurologic: awake; not confused Speech / Cognition: normal speech Psychiatric: A+Ox3, euthymic affect Results & Data Vital Signs (Past 12 Hours) Vital Signs Temp Pulse Pulse Resp BP Pulse Ox 05/03/19 20:50 36.7 C 76 16 105/63 94 05/03/19 19:34 36.7 C 73 17 111/61 98 05/03/19 18:42 36.5 C 78 16 108/65 95 05/03/19 17:59 79 16 107/63 97 05/03/19 17:18 36.5 C 77 16 128/61 96 05/03/19 17:08 36.5 C 85 19 132/58 L 99 05/03/19 16:58 81 16 142/66 H 99 05/03/19 16:50 77 19 150/62 H 98 05/03/19 16:42 36.9 C 83 18 161/62 H 98 05/03/19 10:38 36.6 C 61 18 149/97 H 98 PG Care Time/CCT Total # of Minutes Spent Total Time Spent with Patient: Total time spent is greater than 50% in coordination of care (as documented) at patient's floor/unit and/or counseling patient:
[2019-05-04] MEDS: LEVOTHYROXINE SODIUM 75 MCG TABLET PO SCH (05:28)
[2019-05-04] MEDS: ACETAMINOPHEN 500 MG TAB PO SCH ×3 (05:28→21:14)
[2019-05-04] MEDS: CEFAZOLIN 1000MG 1,000 MG/7.5 ML SYR IV SCH (05:28)
[2019-05-04 06:28] LABS: Basophils # (auto) 0.01 K/uL (0-0.2); Basophils % (auto) 0.1 %; Hematocrit (blood only) 31.3 % (37-47); Hemoglobin 10.5 g/dL (12.0-16.0); Immature Granulocytes # (auto) 0.05 K/uL (0.00-0.02); Immature Granulocytes % (auto) 0.3 %; Lymphocytes # (auto) 0.99 K/uL (1.2-3.4); Lymphocytes % (auto) 5.6 %; Mean Corpuscular Hemoglobin 30.9 pg (25-34); Mean Corpuscular Hgb Conc 33.5 g/dL (32-36); Mean Corpuscular Volume 92.1 fL (80-100); Mean Platelet Volume 9.6 fL (7.4-10.4); Monocytes # (auto) 0.98 K/uL (0.11-0.59); Monocytes % (auto) 5.6 %; Neutrophils # (auto) 15.61 K/uL (1.4-6.5); Neutrophils % (auto) 88.4 %; Platelet Count 227 K/uL (130-400); RDW Coefficient of Variation 13.3 % (11.5-14.5); RDW Standard Deviation 44.8 fL (36.4-46.3); White Blood Count 17.64 K/uL (4.8-10.8)
[2019-05-04 06:59] LABS: BUN Creatinine Ratio 20.2 (10-20); Calcium 8.9 mg/dl (8.5-10.1); Creatinine Clr Calc Pharmacy 21.9 ml/min; Est GFR (African American) 36.2; Est GFR (Non-African American) 31.2; Potassium 4.5 mmol/L (3.5-5.1)
--- NOTE | 2019-05-04 08:27 | Orthopedic Progress Note ---
Date of Service May 04, 2019 Assessment & Plan (1) Arthritis of left shoulder region: POD #1, Left TSA, Biceps Tenodesis PT/ OT DVT proph- ASA D/C planning- Home w OPPT As per medicine. Subjective POD #1, Doing well. Denies SOB, CP, N/V. Requesting OPPT on discharge. Physical Exam Physical Exam: Left shoulder dressings c/d/i, no drainage, drain in tact. Fingers mobile. Sling in tact. A&Ox3. Results & Data Vital Signs (Past 12 Hours) Vital Signs Temp Pulse Resp BP Pulse Ox 05/04/19 07:28 36.5 C 56 L 16 128/61 97 05/04/19 03:58 36.6 C 67 16 109/66 97 05/03/19 23:30 36.7 C 67 16 104/62 95 05/03/19 20:50 36.7 C 76 16 105/63 94
[2019-05-04] MEDS: MULTIVITAMIN TAB PO SCH (08:37)
[2019-05-04] MEDS: predniSONE 5 MG TAB PO SCH (08:37)
[2019-05-04] MEDS: CHOLECALCIFEROL 1,000 UNITS TAB PO SCH (08:37)
[2019-05-04] MEDS: ASPIRIN 81 MG ECTAB PO SCH (08:37)
[2019-05-04] MEDS: SERTRALINE HCL 100 MG TABLET PO SCH (08:38)
[2019-05-04] MEDS: DOCUSATE SODIUM 100 MG CAP PO SCH ×2 (08:38→21:14)
--- NOTE | 2019-05-04 08:49 | Anesthesiology Progress Note ---
Date of Service May 04, 2019 Anesthesia Post Procedure Vital Signs Vital Signs: Temp Pulse Pulse Resp BP Pulse Ox 05/04/19 07:28 36.5 C 56 L 16 128/61 97 05/04/19 03:58 36.6 C 67 16 109/66 97 05/03/19 23:30 36.7 C 67 16 104/62 95 05/03/19 20:50 36.7 C 76 16 105/63 94 05/03/19 19:34 36.7 C 73 17 111/61 98 05/03/19 18:42 36.5 C 78 16 108/65 95 05/03/19 17:59 79 16 107/63 97 05/03/19 17:18 36.5 C 77 16 128/61 96 05/03/19 17:08 36.5 C 85 19 132/58 L 99 05/03/19 16:58 81 16 142/66 H 99 05/03/19 16:50 77 19 150/62 H 98 05/03/19 16:42 36.9 C 83 18 161/62 H 98 05/03/19 10:38 36.6 C 61 18 149/97 H 98 Notes Mental Status: alert / awake / arousable and participated in evaluation Patient Amnestic to Procedure: Yes Nausea / Vomiting: adequately controlled Pain: adequately controlled Airway Patency, RR, SpO2: stable & adequate BP & HR: stable & adequate Hydration State: stable & adequate Anesthetic Complications: no major complications apparent and Pt Satisfied with anesthetic care
[2019-05-04] MEDS ORDERED: CeleBREX 200 MG CAP PO SCH (09:00)
[2019-05-04] MEDS: OXYCODONE HCL IR 5 MG TAB (IMMEDIATE RELEASE) PO PRN ×2 (15:06→23:39)
--- NOTE | 2019-05-04 18:38 | Hospitalist Progress Note ---
Date of Service May 04, 2019 Assessment & Plan (1) S/P rotator cuff repair: Appears to be doing well postop. Mild degree of leukocytosis likely stress and/or steroid related, mild degree of acute blood loss anemia not unexpected, and hemodynamically stable. Pain controlled. Otherwise per orthopedics. (2) Anxiety: continue home meds, seems to be doing well. (3) Hypothyroid: continue home meds, outpatient follow-up. (4) PMR (polymyalgia rheumatica): Prednisone 7.5mg QD as prior, she had run into significant trouble with attempts to wean steroids before. Not showing any indication for stress dosing. (5) HTN (hypertension): continue home meds, blood pressure is reasonable given the circumstances (6) GERD (gastroesophageal reflux disease): continue home meds (7) DVT prophylaxis: As per ortho (8) CKD (chronic kidney disease): Stage III. Stopped Celebrex, cautioned against all future NSAIDs, her PCP had already done a very good job of this, and she was well aware. Ongoing close outpatient follow-up. Subjective Generally feeling okay. Pain controlled overall. Has had some shoulder pain as the nerve block is worn off, but pain meds are doing a good job controlling it. Review of Systems Review of Systems: All systems reviewed & are unremarkable except as noted in HPI & below Physical Exam Physical Exam: General she is awake alert oriented x3, pleasant no distress. HEENT normocephalic atraumatic mucous membranes moist. Left shoulder in sling. Skin shows no rashes no pallor or icterus. Breathing unlabored no accessory muscle use good effort. Neuro shows no focal deficits. Results & Data Vital Signs (Past 12 Hours) Vital Signs Temp Pulse Pulse Resp BP Pulse Ox 05/04/19 15:39 64 120/64 05/04/19 15:18 98.1 F 67 16 114/51 L 96 05/04/19 07:28 97.7 F 56 L 16 128/61 97 PG Care Time/CCT Total # of Minutes Spent Total Time Spent with Patient: Total time spent is greater than 50% in coordination of care (as documented) at patient's floor/unit and/or counseling patient:
[2019-05-04] MEDS: SENNA 8.6 MG TAB PO SCH (21:14)
[2019-05-05] MEDS: LEVOTHYROXINE SODIUM 75 MCG TABLET PO SCH (05:28)
[2019-05-05] MEDS: ACETAMINOPHEN 500 MG TAB PO SCH ×2 (05:28→13:44)
[2019-05-05 06:53] LABS: BUN Creatinine Ratio 31.2 (10-20); Calcium 8.5 mg/dl (8.5-10.1); Creatinine Clr Calc Pharmacy 23.9 ml/min; Est GFR (African American) 40.2; Est GFR (Non-African American) 34.6; Potassium 4.2 mmol/L (3.5-5.1)
--- NOTE | 2019-05-05 07:53 | Orthopedic Progress Note ---
Date of Service May 05, 2019 Assessment & Plan (1) Arthritis of left shoulder region: POD #2, Left TSA, Biceps Tenodesis PT/ OT DVT proph- ASA D/C planning- Home w OPPT today. As per medicine. Will try tramadol due to side effects of oxycodone, if pain is controlled on tramadol will D/C today after 1500. Monitor BP, Pulse. Check CBC. Subjective POD #2 Generally feeling okay. Pain controlled overall. Has had some shoulder pain as the nerve block is worn off, but pain meds are doing a good job controlling it. Denies SOB, CP, N/V. States the oxycodone makes her "feel bad, I'm afraid of it". Requesting to try tramadol. BP high, pulse low. Asymptomatic. Physical Exam Physical Exam: Left shoulder dressings c/d/i, no erythema, no drainange. Fingers mobile. Sling in tact. N/V+. A&Ox3. Results & Data Vital Signs (Past 12 Hours) Vital Signs Temp Pulse Resp BP Pulse Ox 05/05/19 07:17 36.6 C 59 L 16 159/72 H 95 05/04/19 23:53 36.8 C 60 16 145/69 H 95
[2019-05-05] MEDS: TRAMADOL HCL 50 MG TABLET PO PRN ×2 (08:29→14:47)
[2019-05-05] MEDS: DOCUSATE SODIUM 100 MG CAP PO SCH (08:30)
[2019-05-05] MEDS: CHOLECALCIFEROL 1,000 UNITS TAB PO SCH (08:30)
[2019-05-05] MEDS: SERTRALINE HCL 100 MG TABLET PO SCH (08:30)
[2019-05-05] MEDS: MULTIVITAMIN TAB PO SCH (08:30)
[2019-05-05] MEDS: predniSONE 5 MG TAB PO SCH (08:30)
[2019-05-05] MEDS: ASPIRIN 81 MG ECTAB PO SCH (08:31)
[2019-05-05 09:01] LABS: Hematocrit (blood only) 32.2 % (37-47); Hemoglobin 10.6 g/dL (12.0-16.0); Mean Corpuscular Hemoglobin 30.8 pg (25-34); Mean Corpuscular Hgb Conc 32.9 g/dL (32-36); Mean Corpuscular Volume 93.6 fL (80-100); Mean Platelet Volume 9.6 fL (7.4-10.4); Platelet Count 184 K/uL (130-400); RDW Coefficient of Variation 13.7 % (11.5-14.5); RDW Standard Deviation 46.8 fL (36.4-46.3); Red Blood Count 3.44 M/uL (4.2-5.4); White Blood Count 10.58 K/uL (4.8-10.8)
--- NOTE | 2019-05-05 10:00 | Hospitalist Progress Note ---
Date of Service May 05, 2019 Assessment & Plan (1) S/P rotator cuff repair: pain controlled on Ultram participating in therapy Hb down slightly at 10.6 but stable since yesterday leukocytosis resolved can go home today from medical perspective (2) Anxiety: continue home meds, she is calm on exam (3) Hypothyroid: continue home meds, outpatient follow-up. (4) PMR (polymyalgia rheumatica): Prednisone 7.5mg QD as prior, she had run into significant trouble with attempts to wean steroids before. Not showing any indication for stress dosing. (5) HTN (hypertension): continue home meds, blood pressure slightly high at times but acceptable given her pain (6) GERD (gastroesophageal reflux disease): continue home meds (7) DVT prophylaxis: As per ortho (8) CKD (chronic kidney disease): Stage III. Stopped Celebrex, cautioned against all future NSAIDs, her PCP had already done a very good job of this, and she was well aware. Ongoing close outpatient follow-up. clear to go home from medical team will sign off today Subjective patient says that her left shoulder pain was increased this AM after block wore off pain is better now after some Ultram she is eating well, ambulating in halls, breathing well, no chest pain reviewed labs, Hb stable, CR at baseline and electrolytes are normal Review of Systems Review of Systems: All systems reviewed & are unremarkable except as noted in HPI & below Musculoskeletal: + joint pain (left shoulder) Physical Exam Constitutional: WD/WN, vitals as above Eyes: PERRL, conjunctivae normal, anicteric sclerae ENMT: external ear and nose normal, oropharynx normal Neck: trachea midline, no thyromegaly Respiratory: normal respiratory effort, lungs clear to auscultation Cardiovascular: RRR, no murmur, no edema Gastrointestinal (Abdomen): normal bowel sounds, soft, nontender, no hepatosplenomegaly Musculoskeletal: Head/Neck/Chest: normocephalic and head atraumatic Shoulder: + shoulder abnormal to inspection (left, swollen tender) and + limited ROM (left) Skin: no rashes, warm and dry Neurologic: patellar DTR's 2+ bilat, sensation intact and PERRL, EOMI, accommodation nl, no face palsy, no dysarthria Psychiatric: A+Ox3, euthymic affect Lymphatic: no cervical or axillary lymphadenopathy Results & Data Vital Signs (Past 12 Hours) Vital Signs Temp Pulse Resp BP Pulse Ox 05/05/19 07:17 36.6 C 59 L 16 159/72 H 95 05/04/19 23:53 36.8 C 60 16 145/69 H 95 Laboratory Results Laboratory Results - last 24 hr 05/05/19 05/05/19 05:56 06:00 WBC 10.58 RBC 3.44 L Hgb 10.6 L Hct 32.2 L MCV 93.6 MCH 30.8 MCHC 32.9 RDW Std Deviation 46.8 H RDW Coeff of Simba 13.7 Plt Count 184 MPV 9.6 Sodium 141 Potassium 4.2 Chloride 112 H Carbon Dioxide 24 Anion Gap 5.0 BUN 45 H Creatinine 1.45 H Est Cr Clr Drug Dosing 23.9 Est GFR ( Amer) 40.2 Est GFR (Non-Af Amer) 34.6 BUN/Creatinine Ratio 31.2 H Glucose 85 Calcium 8.5 Medications Administered Current Inpatient Medications Acetaminophen (Tylenol) 1,000 mg PO Q8 [facility] Stop: 06/02/19 21:59 Last Admin: 05/05/19 05:28 Dose: 1,000 mg Documented by: Aspirin (Ecotrin Ectab) 81 mg PO QAM [facility] Stop: 06/03/19 08:59 Last Admin: 05/05/19 08:31 Dose: 81 mg Documented by: Bisacodyl (Dulcolax) 10 mg IN DAILY PRN PRN Reason: Constipation Stop: 06/02/19 17:33 Docusate Sodium (Colace) 100 mg PO BID [facility] Stop: 06/02/19 20:59 Last Admin: 05/05/19 08:30 Dose: Not Given Documented by: Hydromorphone HCl (Dilaudid) 0.5 mg IV Q4H PRN PRN Reason: Pain Stop: 05/17/19 17:33 Levothyroxine Sodium (Synthroid) 75 mcg PO DAILYBB [facility] Stop: 06/03/19 06:29 Last Admin: 05/05/19 05:28 Dose: 75 mcg Documented by: Loperamide HCl (Imodium) 2 mg PO Q3H PRN PRN Reason: loose stool Lorazepam (Ativan) 0.5 mg PO DAILY PRN PRN Reason: Anxiety Stop: 06/02/19 17:33 Magnesium Hydroxide (Milk Of Magnesia) 30 ml PO Q6H PRN PRN Reason: Constipation Stop: 06/02/19 17:33 Meclizine HCl (Antivert) 25 mg PO TID PRN PRN Reason: dizziness Stop: 06/02/19 17:33 Miscellaneous (Order Awaiting Action) 1 ea N/A QS [facility] Stop: 06/03/19 00:00 Last Admin: 05/05/19 08:32 Dose: Not Given Documented by: Multivitamins (Multivitamin Tab) 1 tab PO QAM [facility] Stop: 06/03/19 08:59 Last Admin: 05/05/19 08:30 Dose: 1 tab Documented by: Naloxone HCl (Narcan) 0.1 mg IV Q5M PRN PRN Reason: Oversedation/Resp Depression Stop: 06/02/19 17:33 Ondansetron HCl (Zofran) 4 mg IV Q6H PRN PRN Reason: Nausea And Vomiting Stop: 06/02/19 17:33 Oxycodone HCl (Roxicodone Immediate Rel) 5 - 10 mg PO Q4H PRN PRN Reason: Pain Stop: 05/17/19 17:33 Last Admin: 05/04/19 23:39 Dose: 10 mg Documented by: Pantoprazole Sodium (Protonix) 40 mg PO HS PRN PRN Reason: Acid Reflux Prednisone (Prednisone) 7.5 mg PO DAILY [facility] Stop: 06/03/19 08:59 Last Admin: 05/05/19 08:30 Dose: 7.5 mg Documented by: Sennosides (Senokot) 17.2 mg PO HS [facility] Stop: 06/02/19 20:59 Last Admin: 05/04/19 21:14 Dose: Not Given Documented by: Sertraline HCl (Zoloft) 100 mg PO QAM [facility] Stop: 06/03/19 08:59 Last Admin: 05/05/19 08:30 Dose: 100 mg Documented by: Tramadol HCl (Ultram) 50 - 100 mg PO Q6H PRN PRN Reason: Pain Stop: 06/04/19 08:06 Last Admin: 05/05/19 08:29 Dose: 100 mg Documented by: Vitamin D (Vitamin D3) 2,000 units PO QAM [facility] Stop: 06/03/19 08:59 Last Admin: 05/05/19 08:30 Dose: 2,000 units Documented by: PG Care Time/CCT Total # of Minutes Spent Total Time Spent with Patient: Total time spent is greater than 50% in coordination of care (as documented) at patient's floor/unit and/or counseling patient:
--- NOTE | 2019-05-09 12:47 | Discharge Summary ---
Date of Service May 09, 2019 Admission HPI Per Admitting Provider This is a 78-year-old female patient of Dr. Ramirez'samantha complaining of chronic left shoulder pain, longstanding, now progressively getting worse. The patient has failed conservative treatment and has been diagnosed with left shoulder end-stage osteoarthritis with possible rotator cuff compromise. At this point in time, patient wished to proceed with a possible reverse total shoulder arthroplasty. Admission Exam Per Admitting Provider PHYSICAL EXAMINATION: GENERAL: Well-developed, well-nourished 78-year-old female in no acute distress. She is alert and oriented x3 and pleasant. HEENT: Normocephalic, atraumatic. Extraocular motions are intact. Pupils are equal and reactive to light. HEART: Regular rate and rhythm, no murmurs. LUNGS: Clear. ABDOMEN: Soft, nontender, bowel sounds present. EXTREMITIES: Left shoulder reveals range of motion is full with pain and crepitation. She does have atrophy noted on her left shoulder. She has 3/5 strength globally. NEUROLOGIC: Neurovascularly, she is intact in her left upper extremity. Principal Diagnosis Left shoulder Osteoarthritis glenohumeral joint, history of rotator cuff repair with subacromial decompression distal clavicle excision, partial tear rotator cuff, biceps tenosynovitis, subacromial bursitis. Discharge Exam Generally feeling okay. Pain controlled overall. Has had some shoulder pain as the nerve block is worn off, but pain meds are doing a good job controlling it. Denies SOB, CP, N/V. States the oxycodone makes her "feel bad, I'm afraid of it". Pt switched to Tramadol Discharge Data Allergies Allergy/AdvReac Type Severity Reaction Status Date / Time No Known Drug Allergies Allergy Verified 05/03/19 10:29 Consultations 04/27/19 14:24 Consult Hospitalist Routine 05/03/19 17:34 Consult Case Management - Discharge Planning Routine Procedures Performed Operation Date: 05/03/19 12:50 Actual Procedures p Left Total Shoulder Arthroplasty, with biceps tenodesis, (Left) - Alexandr Ramirez MD s Removal Hardware(Left) - Alexandr Ramirez MD Ordered Studies 05/03/19 05:00 US - OR guided needle placemen Routine Hospital Course (1) Arthritis of left shoulder region: Patient admitted on 05/03/2019 and underwent a left total shoulder arthroplasty with biceps tenodesis and hardware removal by Dr. Ramirez. On the patient's first postoperative day, she was doing well. Denies shortness of breath, chest pain, or nausea or vomiting. Pain was controlled. She was requesting outpatient PT on discharge. Dressings were intact. Fingers are mobile. She was started on PT and OT protocols and continued on DVT prophylaxis and pain management. Dr. Debra Cummins was consulted for medical management during her stay. By her second postoperative day she was feeling okay. Pain was controlled overall. Denies shortness of breath chest pain or nausea or vomiting. Her pain was being controlled by tramadol; dressings were intact, fingers are mobile, sling was intact, and neurovascular is intact. She was remaining stable orthopedically and medically. It was felt she will be discharged home on 05/05/2019. Total Time Total Time Spent Total Time Spent (In Minutes): 5 Discharge Plan Discharge Items Patient Disposition: Home - Self-Care Reason For Visit: Left shoulder Osteoarthritis Discharge Diagnosis: Left Shoulder Osteoarthritis Activity: Per Instructions section Weightbearing: Left non-weightbearing Weightbearing Comment: Nonweightbearing on the left upper extremity Non-emergency contact: Surgeon Call non-emergency contact if: your pain is not controlled, your temperature is above 101.5, your wound has increased redness and your wound has increased drainage Follow-up/Referrals: Danish Montilla MD [Primary Care Provider] - 05/16/19 2:30 pm (A follow up appt. has been made for you with Columba Soler PA-C in Dr. Montilla's office on 05/16 at 2:30pm.) Diet: Regular Addtl Attending Provider Instructions: ACTIVITY RECOMMENDATIONS: SELF CARE INSTRUCTIONS AFTER TOTAL SHOULDER ARTHROPLASTY A. You may do daily exercises as taught in physical therapy while in hospital. No lifting with the operative arm. Please schedule your outpatient physical therapy appointment to begin within 2-3 days after leaving the hospital. Specific restrictions will be written on your physical therapy prescription that is provided to you. B. You are to wear your sling/immobilizer at all times EXCEPT when performing your daily exercises, participating in physical therapy and for hygiene purposes. C. You may perform dry, daily dressing changes. Please keep your incision covered. You may shower 48 hours after surgery. Do not apply soap or any ointment/lotions directly over incision. Do not soak incision in bath tub/swimming pool. D. You may use ice as needed to operative shoulder. SPECIAL CARE INSTRUCTIONS: MEDICATION INSTRUCTIONS: *It is recommended you take Aspirin 325mg daily for four weeks post-op. VERY IMPORTANT TO READ AND REVIEW A. There are a few signs you need to watch for after you are home. Call [facility] at [phone] if you experience any of the followin. Increased severe shoulder pain. Some pain is expected especially when you exercise. 2. Increased swelling in you shoulder or arm; pain or swelling in either upper extremity. 3. Any fluid drainage from the incision. 4. Shortness of breath or chest pain. B. Please call [facility] at [phone] if you have any questions or concerns about your operation or recovery. C. Call your physician if: 1. Temperature is greater than 101 degrees (F). 2. Pain is not relieved by prescribed pain medications. 3. Increase drainage or redness from incision. 4. Unanswered questions or concerns. FOLLOW UP VISIT: Please call [facility] at [phone] to schedule a follow up appointment with Dr. Ramirez or his PA in 12-14 days from your surgery date. Pending Studies at Discharge: No Stand-Alone Forms: My [facility] Medications and DC Order Prescriptions: New acetaminophen [Tylenol Extra Strength] 500 mg Tablet 1,000 mg PO Q8 30 Days Qty: 180 RF: 0 aspirin [Ecotrin Low Strength] 81 mg Tablet,Delayed Release (Dr/Ec) 81 mg PO QAM 30 Days Qty: 30 RF: 0 tramadol 50 mg tablet 50 - 100 mg PO Q6H PRN (Reason: pain) Qty: 40 RF: 0 Continued levothyroxine 75 mcg tablet 75 mcg PO QAM Qty: 90 RF: 0 prednisone 5 mg tablet 7.5 mg PO DAILY Qty: 30 RF: 0 diclofenac sodium 1 % gel 2 gm TOP QID PRN (Reason: pain) Qty: 100 RF: 0 omeprazole 20 mg capsule,delayed release(DR/EC) 20 mg PO HS PRN (Reason: Acid Reflux) Qty: 90 RF: 0 meclizine 25 mg tablet 25 mg PO TID PRN (Reason: dizziness) Qty: 30 RF: 0 lorazepam 0.5 mg tablet 0.5 mg PO DAILY PRN (Reason: Anxiety) Qty: 30 RF: 0 sertraline 100 mg tablet 100 mg PO QAM Qty: 90 RF: 0 candesartan-hydrochlorothiazid 16-12.5 mg tablet 0.5 tab PO QAM RF: 0 cholecalciferol (vitamin D3) 2,000 unit capsule 2,000 units PO QAM RF: 0 biotin 1,000 mcg tablet,chewable 1,000 mcg PO QAM RF: 0 Imodium Multi-Symptom Relief 2-125 mg tablet 2 tab PO Q3H PRN (Reason: loose stool) Qty: 30 RF: 0 Discontinued celecoxib 200 mg capsule 200 mg PO QAM Qty: 90 RF: 0 Discharge Orders: Discharge Order (Routine); Ordered 05/05/19 Ordered By: Alistair Ruiz Admission Data Admit Date/Time: 05/03/19 16:54 Attending Provider: Alexandr Ramirez Admit Provider: Alexandr Ramirez Primary Care Provider: Danish Montilla Other Providers: Debra Cummins Other Interventions: Discharge Summary Assessment (RN) Last Done: 05/05/19 13:15 DC Date/Time DO NOT enter until pt leaves facility: 05/05/19 14:53
== END 2019-05-05 14:53 | disposition home or self-care (01) | DRG 483 ==
LOC: ASU 10:02 → 3E 16:54

== ENCOUNTER 2021-04-05 16:54 | Observation (INO) ==
--- NOTE | 2021-04-05 17:24 | Emergency Department Note ---
Impression & Plan Weakness, Falls, Suspected Lyme disease, Hypomagnesemia ED Provider Note Provider: Odell Mosley MD DATE OF SERVICE: 04/05/2021 CHIEF COMPLAINT: Weakness, foggy, falls HISTORY OF PRESENT ILLNESS: Patient is a 80-year-old female history of CKD, PMR, GERD, hypothyroidism and hypertension presenting here today with daughter with reports of some increased weakness and fogginess. Patient states over the past couple of days she has been little bit more weak but particularly this morning. Evidently after finishing her breakfast went to get up from the chair at the table stood up and then became quite weak and lowered herself to the ground. No lose consciousness reported and they both states she did not sustain a head injury. Daughter was able to assist her to a chair. Patient reports she has had a day or 2 of some mild diarrhea. States today she is also become diffusely achy all over her body. No recent rashes reported. No swelling or recent of the legs. No recent travel. Patient denies shortness of breath or runny nose. Patient states she has some pain when she touches anywhere on her body or her chest. Denies rashes. Denies sick contacts and states she been vaccinated for Covid. Reports that she has slid to the ground several times today and is not quite as mentally sharp as normal. Her daughter concurs that she seems a bit foggy. Patient denies injuries otherwise from going to the floor several times. REVIEW OF SYSTEMS: A total of 10 review of systems was obtained and negative except as stated above in the HPI. PAST MEDICAL HISTORY: As noted above MEDICATIONS: Reviewed home medication list SOCIAL HISTORY: Lives at home, PHYSICAL EXAM: GENERAL: alert and oriented in no acute distress on stretcher but appears somewhat fatigued Head: normocephalic and atraumatic EYES: No injection, discharge or icterus. NECK: Trachea midline. Supple. ENT: Mucous membranes pink and moist. LUNGS: Airway patent. No retractions. Breath sounds clear HEART: Regular rate and rhythm. No chest wall tenderness ABDOMEN: Soft and non-tender, without guarding or rebound. SKIN: Acyanotic, warm, dry, without rashes EXTREMITIES: Without swelling, tenderness or deformity NEUROLOGICAL: No focal deficits. No aphasia. No facial droop or slurred speech. Normal strength and tone in the extremities. Sensation to gross touch normal. Ambulatory here EK bpm normal sinus rhythm. No PVC or PAC. No acute ST segment elevation or depression. QTC 424. CONTINUOUS CARDIAC MONITORING: was ordered and showed a heart rate of 60s to 80s bpm in normal sinus rhythm Patient's laboratory studies and imaging reviewed. Differential includes Infection, dehydration, metabolic abnormality, hypo/hyperglycemia, electrolyte disturbance, anemia, hypoxia, cardiac sources, intracerebral event, toxicologic, neurologic, as well as other pathologies. IMPRESSION/MEDICAL DECISION MAKING: Patient presents with a day or 2 of some diarrhea and some slight weakness sign ificant worsened today with diffuse myalgias. No fevers reported but some borderline blood pressures daughter reports in the 100s to 1 teens systolically. Patient had several falls today although denies significant traumatic injury. Family and patient report that she is noted to be more fatigued than normal. No significant focal neurological deficits. Not hypoxic here or significantly tachycardic. White blood cell count is 11.8 somewhat elevated and her symptoms seem somewhat concerning for infectious process. Chest x-ray is obtained as well as a CT of the head to exclude acute intercranial normality signs of pneumonia though again she does not have significant symptoms here. Anaplas mosis and Lyme screen were sent. Blood culture sent. Patient does not appear meningitic. Given some IV fluid hydration. Labs do show some mild hypomagnesemia of 1.7 and creatinine slightly higher than normal at 1.2 although not far from her baseline just over 1. AST is mildly elevated at 91. ALT within normal limits and bilirubin not elevated. Troponin is not elevated. TSH within normal limits. Anaplasmosis smear is negative. CT of the head per radiology without acute evidence of hemorrhage, mass-effect, or ischemia. Chest x-ray appears clearper rads. Lyme IgM antibody is positive but IgG is negative. Question if this is contributing to her symptoms today. Urinalysis finally returns and is not that impressive for signs of infection. Will broadly cover with a dose of Rocephin at this time given concern for Lyme disease. Small amount of IV magnesium supplementation ordered. Discussed with the patient and daughter at bedside. Given her multiple falls today feel that observation given her weakness overnight would be reasonable and the hospitalist will be contacted. Will defer possible empiric doxycycline treatment for anaplasmosis and adding stress dose steroids to them at this point given the patient's stability here. She did ambulate without significant abnormality in the room. DIAGNOSIS: Weakness, falls, positive Lyme screen, hypomagnesemia DISPOSITION: Hospitalist will evaluate Patient was agreeable with this plan. Past Med/Surg History Medical History Anxiety Carpal tunnel syndrome Chronic diarrhea CKD (chronic kidney disease) GERD (gastroesophageal reflux disease) Grief HSV-2 infection HTN (hypertension) Hypothyroid Kidney stone PMR (polymyalgia rheumatica) Primary osteoarthritis, right shoulder Sensorineural hearing loss (SNHL) of both ears SI joint arthritis Unintentional weight loss Surgical History H/O colonoscopy H/O: hysterectomy History of arthroplasty of left shoulder (04/2019) History of carpal tunnel release of both wrists History of cystocele History of ERCP History of esophagogastroduodenoscopy (EGD) History of lithotripsy History of neck surgery History of rotator cuff surgery History of tooth extraction Hx of cataract surgery Hx of cholecystectomy Hx of tonsillectomy Retinal wrinkling, right eye Family History Father Renal failure Cardiovascular disease (Premature) Acute myocardial infarction Diabetes Colon cancer Myocardial infarction Mother Hypertension Brother Acute myocardial infarction Obesity Malignant neoplasm of pancreas Myocardial infarction Sister Colon cancer Daughter Adult celiac disease Denies family history of Ovarian cancer Prostate cancer Crohn's disease Breast cancer Inflammatory bowel diseases (IBD) Social History Smoking Status: Never smoker Second Hand Exposure: No; Hx Alcohol Use: Yes Alcohol type: wine Alcohol Intake Frequency: Monthly or Less Hx Substance Use: No Preferred Language: Kazakh Communication Ability: Effective Visual Impairment: No Limitations Hearing Ability: Normal Tactical Response [employer] Officer Required: No Beliefs That Will Affect Care: None marital status: Current Living Situation: Alone current occupational status: retired How many Children do You have: 2 Feels Safe at Home: Yes Childhood Exposure to Second-Hand Smoke: No Diet Comment: regular caffeine: Yes (diet coke) during the past year weight has: other Dental Care, Regularly: Yes Physical Activity Frequency: Daily Seatbelt Use: always Sunscreen Use: Yes Assistive Devices: Hearing Aid - Bilateral Allergies Allergies Allergy/AdvReac Type Severity Reaction Status Date / Time Penicillins Allergy Unknown Unknown - Unverified 04/05/21 18:56 Childhood reaction No Known Drug Allergies Allergy Verified 04/05/21 17:43 Home Meds Home Medications Medication Instructions Recorded Confirmed cholecalciferol (vitamin D3) 50 2,000 units PO QAM 02/16/19 04/05/21 mcg (2,000 unit) capsule prednisone 1 mg tablet 3 mg PO DAILY 04/05/21 04/05/21 Previous Rx's Medication Instructions Recorded loperamide-simethicone 2 mg-125 mg 2 tab PO Q3H PRN #30 tab 04/05/19 tablet (Imodium Multi-Symptom Relief) meclizine 25 mg tablet 25 mg PO TID PRN #30 tab 04/24/19 lorazepam 0.5 mg tablet 0.5 mg PO DAILY PRN #20 tab 08/08/20 diclofenac sodium 1 % topical gel 2 g TOP QID PRN #100 gm 10/04/20 levothyroxine 50 mcg tablet 50 mcg PO QAM #90 tab 11/04/20 sertraline 50 mg tablet 100 mg PO QAM #90 tab 01/10/21 candesartan 16 0.5 tab PO QAM #30 tab 03/24/21 mg-hydrochlorothiazide 12.5 mg tablet Results & Data (ED) Vital Signs Vital Signs - 24 hr 04/05/21 16:57 04/05/21 17:16 04/05/21 17:23 Temperature 36.8 C Temperature Source Temporal Artery Scan Pulse Rate 88 77 82 Pulse Rate from SpO2 Sensor 78 Respiratory Rate 20 22 20 Blood Pressure 105/65 131/51 L Blood Pressure Mean 78 77 Pulse Oximetry 96 97 96 Oxygen Delivery Method Room Air Room Air Room Air Sepsis Recent Fever Within 48 Hours No Sepsis New/Unexplained Change in Mental Status N/A Sepsis Action Taken by Nursing No Action Required 04/05/21 17:41 04/05/21 17:42 04/05/21 18:00 Temperature Temperature Source Pulse Rate 71 69 Pulse Rate from SpO2 Sensor 71 72 Respiratory Rate 15 23 Blood Pressure 107/70 116/58 L Blood Pressure Mean 82 77 Pulse Oximetry 96 97 96 Oxygen Delivery Method Room Air Room Air Room Air Sepsis Recent Fever Within 48 Hours Sepsis New/Unexplained Change in Mental Status Sepsis Action Taken by Nursing 04/05/21 18:30 Temperature Temperature Source Pulse Rate 65 Pulse Rate from SpO2 Sensor 64 Respiratory Rate 22 Blood Pressure 110/45 L Blood Pressure Mean 66 Pulse Oximetry 96 Oxygen Delivery Method Room Air Sepsis Recent Fever Within 48 Hours Sepsis New/Unexplained Change in Mental Status Sepsis Action Taken by Nursing Laboratory Data Result diagrams: 04/05/21 17:17 04/05/21 17:17 Lab Results 04/05/21 04/05/21 04/05/21 Range/Units 17:17 17:17 17:17 WBC (4.8-10.8) K/uL RBC (4.2-5.4) M/uL Hgb (12.0-16.0) g/dL Hct (37-47) % MCV (80-100) fL MCH (25-34) pg MCHC (32-36) g/dL RDW Std Deviation (36.4-46.3) fL RDW Coeff of Simba (11.5-14.5) % Plt Count (130-400) K/uL MPV (7.4-10.4) fL Immature Gran % (Auto) % Neut % (Auto) % Lymph % (Auto) % [place] % (Auto) % Eos % (Auto) % Baso % (Auto) % Neut # (Auto) (1.4-6.5) K/uL Lymph # (Auto) (1.2-3.4) K/uL [place] # (Auto) (0.11-0.59) K/uL Eos # (Auto) (0-0.5) K/uL Baso # (Auto) (0-0.2) K/uL Immature Gran # (Auto) (0.00-0.02) K/uL PT 9.7 (9.0-12.0) Seconds INR 1.0 (0.9-1.1) Sodium 136 (136-145) mmol/L Potassium 4.2 (3.5-5.1) mmol/L Chloride 110 H (98-107) mmol/L Carbon Dioxide 20 L (21-32) mmol/L Anion Gap 7.0 (3-11) BUN 31 H (7-18) mg/dl Creatinine 1.21 H (0.6-1.2) mg/dl Est Cr Clr Drug Dosing 25.7 ml/min Est GFR ( Amer) 49.3 ml/min Est GFR (Non-Af Amer) 42.5 ml/min BUN/Creatinine Ratio 25.3 H (10-20) Glucose 94 (70-99) mg/dl Lactate 1.4 (0.4-2.0) mmol/L Calcium 9.0 (8.5-10.1) mg/dl Magnesium 1.7 L (1.8-2.4) mg/dl Total Bilirubin 0.7 (0.2-1) mg/dl AST 91 H (15-37) U/L ALT 73 (12-78) U/L Alkaline Phosphatase 75 (45-117) U/L Troponin I < 0.015 (0-0.045) ng/ml Total Protein 7.8 (6.4-8.2) gm/dl Albumin 4.0 (3.4-5.0) gm/dl Globulin 3.8 (2.5-4.0) gm/dl Albumin/Globulin Ratio 1.1 (0.9-2) TSH 3.860 (0.300-4.500) uIu/ml Urine Color Urine Appearance (Clear) Urine pH (4.5-7.5) Ur Specific Grandin (1.000-1.030) Urine Protein (Negative) Urine Glucose (UA) (Negative) Urine Ketones (Negative) Urine Blood (Negative) Urine Nitrite (Negative) Urine Bilirubin (Negative) Urine Urobilinogen (Negative) Ur Leukocyte Esterase (Negative) Urine WBC (Auto) (0-5) /hpf Urine RBC (Auto) (0-4) /hpf U Hyaline Cast (Auto) (0-5) /lpf U Epithel Cells (Auto) (0-5) /lpf Urine Bacteria (Auto) (Negative) Anaplasma Smear Lyme Disease IgG Ab (Negative) Lyme Disease IgM Ab (Negative) COVID-19 Eval Order SARS-CoV-2 (PCR) (Negative) 04/05/21 04/05/21 04/05/21 Range/Units 17:17 17:17 17:40 WBC 11.88 H (4.8-10.8) K/uL RBC 3.89 L (4.2-5.4) M/uL Hgb 12.3 (12.0-16.0) g/dL Hct 35.5 L (37-47) % MCV 91.3 (80-100) fL MCH 31.6 (25-34) pg MCHC 34.6 (32-36) g/dL RDW Std Deviation 44.0 (36.4-46.3) fL RDW Coeff of Simba 13.1 (11.5-14.5) % Plt Count 190 (130-400) K/uL MPV 9.5 (7.4-10.4) fL Immature Gran % (Auto) 0.2 % Neut % (Auto) 81.3 % Lymph % (Auto) 9.3 % [place] % (Auto) 7.7 % Eos % (Auto) 1.4 % Baso % (Auto) 0.1 % Neut # (Auto) 9.65 H (1.4-6.5) K/uL Lymph # (Auto) 1.11 L (1.2-3.4) K/uL [place] # (Auto) 0.92 H (0.11-0.59) K/uL Eos # (Auto) 0.17 (0-0.5) K/uL Baso # (Auto) 0.01 (0-0.2) K/uL Immature Gran # (Auto) 0.02 (0.00-0.02) K/uL PT (9.0-12.0) Seconds INR (0.9-1.1) Sodium (136-145) mmol/L Potassium (3.5-5.1) mmol/L Chloride (98-107) mmol/L Carbon Dioxide (21-32) mmol/L Anion Gap (3-11) BUN (7-18) mg/dl Creatinine (0.6-1.2) mg/dl Est Cr Clr Drug Dosing ml/min Est GFR ( Amer) ml/min Est GFR (Non-Af Amer) ml/min BUN/Creatinine Ratio (10-20) Glucose (70-99) mg/dl Lactate (0.4-2.0) mmol/L Calcium (8.5-10.1) mg/dl Magnesium (1.8-2.4) mg/dl Total Bilirubin (0.2-1) mg/dl AST (15-37) U/L ALT (12-78) U/L Alkaline Phosphatase (45-117) U/L Troponin I (0-0.045) ng/ml Total Protein (6.4-8.2) gm/dl Albumin (3.4-5.0) gm/dl Globulin (2.5-4.0) gm/dl Albumin/Globulin Ratio (0.9-2) TSH (0.300-4.500) uIu/ml Urine Color Urine Appearance (Clear) Urine pH (4.5-7.5) Ur Specific Grandin (1.000-1.030) Urine Protein (Negative) Urine Glucose (UA) (Negative) Urine Ketones (Negative) Urine Blood (Negative) Urine Nitrite (Negative) Urine Bilirubin (Negative) Urine Urobilinogen (Negative) Ur Leukocyte Esterase (Negative) Urine WBC (Auto) (0-5) /hpf Urine RBC (Auto) (0-4) /hpf U Hyaline Cast (Auto) (0-5) /lpf U Epithel Cells (Auto) (0-5) /lpf Urine Bacteria (Auto) (Negative) Anaplasma Smear See Comment Lyme Disease IgG Ab Negative (Negative) Lyme Disease IgM Ab Positive A (Negative) COVID-19 Eval Order Covid19 at [facility] SARS-CoV-2 (PCR) (Negative) 04/05/21 04/05/21 Range/Units 17:40 19:09 WBC (4.8-10.8) K/uL RBC (4.2-5.4) M/uL Hgb (12.0-16.0) g/dL Hct (37-47) % MCV (80-100) fL MCH (25-34) pg MCHC (32-36) g/dL RDW Std Deviation (36.4-46.3) fL RDW Coeff of Simba (11.5-14.5) % Plt Count (130-400) K/uL MPV (7.4-10.4) fL Immature Gran % (Auto) % Neut % (Auto) % Lymph % (Auto) % [place] % (Auto) % Eos % (Auto) % Baso % (Auto) % Neut # (Auto) (1.4-6.5) K/uL Lymph # (Auto) (1.2-3.4) K/uL [place] # (Auto) (0.11-0.59) K/uL Eos # (Auto) (0-0.5) K/uL Baso # (Auto) (0-0.2) K/uL Immature Gran # (Auto) (0.00-0.02) K/uL PT (9.0-12.0) Seconds INR (0.9-1.1) Sodium (136-145) mmol/L Potassium (3.5-5.1) mmol/L Chloride (98-107) mmol/L Carbon Dioxide (21-32) mmol/L Anion Gap (3-11) BUN (7-18) mg/dl Creatinine (0.6-1.2) mg/dl Est Cr Clr Drug Dosing ml/min Est GFR ( Amer) ml/min Est GFR (Non-Af Amer) ml/min BUN/Creatinine Ratio (10-20) Glucose (70-99) mg/dl Lactate (0.4-2.0) mmol/L Calcium (8.5-10.1) mg/dl Magnesium (1.8-2.4) mg/dl Total Bilirubin (0.2-1) mg/dl AST (15-37) U/L ALT (12-78) U/L Alkaline Phosphatase (45-117) U/L Troponin I (0-0.045) ng/ml Total Protein (6.4-8.2) gm/dl Albumin (3.4-5.0) gm/dl Globulin (2.5-4.0) gm/dl Albumin/Globulin Ratio (0.9-2) TSH (0.300-4.500) uIu/ml Urine Color Yellow Urine Appearance Clear (Clear) Urine pH 5.0 (4.5-7.5) Ur Specific Grandin 1.007 (1.000-1.030) Urine Protein Negative (Negative) Urine Glucose (UA) Negative (Negative) Urine Ketones Negative (Negative) Urine Blood Negative (Negative) Urine Nitrite Negative (Negative) Urine Bilirubin Negative (Negative) Urine Urobilinogen Negative (Negative) Ur Leukocyte Esterase Trace H (Negative) Urine WBC (Auto) 1-5 (0-5) /hpf Urine RBC (Auto) 0-4 (0-4) /hpf U Hyaline Cast (Auto) 0 (0-5) /lpf U Epithel Cells (Auto) 5-10 H (0-5) /lpf Urine Bacteria (Auto) Negative (Negative) Anaplasma Smear Lyme Disease IgG Ab (Negative) Lyme Disease IgM Ab (Negative) COVID-19 Eval Order SARS-CoV-2 (PCR) NEGATIVE (Negative) Administered Medications Ceftriaxone Sodium (Rocephin) 1,000 mg in 50 mls @ 100 mls/hr IV NOW STA Stop: 04/05/21 19:32 Last Admin: 04/05/21 19:15 Dose: 100 mls/hr Documented by: [id number] Discontinued Medications Sodium Chloride (Nss 1000ml) 1,000 mls @ 999 mls/hr IV .[id number] ONE Stop: 04/05/21 18:57 Last Admin: 04/05/21 18:00 Dose: 999 mls/hr Documented by: [id number] Imaging Data Radiologist's Impression: Head CT 04/05/21 17:03 CT SCAN OF THE BRAIN WITHOUT IV CONTRAST CLINICAL HISTORY: Falls. Generalized weakness. COMPARISON STUDY: No priors. TECHNIQUE: Unenhanced axial CT scan of the brain is performed from the vertex to the skull base. A dose lowering technique was utilized adhering to the principles of ALARA. CT DOSE: 638.56 mGycm FINDINGS: Brain parenchyma: There are age-related involutional changes noting minimal subcortical and periventricular microangiopathic change. There is no hemorrhage, mass effect, or evidence of acute territorial ischemia by CT criteria. 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 Mineralization is noted in the basal ganglia. Brewer-white matter differentiation is preserved. No extra-axial fluid collection is seen. Ventricles, sulci, cisterns: Prominent secondary to involutional change. Intracranial vasculature: There is atherosclerotic calcification of the cav ernous carotid and vertebral arteries. Calvarium: Unremarkable. Sinuses and mastoids: The visualized paranasal sinuses are clear. The mastoid air cells are well pneumatized. Orbits: The bony orbits are grossly intact. There are bilateral ocular lens implants. IMPRESSION: There is no hemorrhage, mass effect, or evidence of acute territorial ischemia by CT criteria. ACT 112: Negative or not required by law. Electronically signed by: Yemi Amador M.D. 04/05/2021 6:30 PM Chest X-Ray 04/05/21 17:04 SINGLE VIEW CHEST CLINICAL HISTORY: Generalized weakness. FINDINGS: An AP, portable, upright chest radiograph is compared to study dated 07/09/2020. The examination is degraded by portable technique and apical lordotic positioning. The heart is enlarged. The pulmonary vasculature is noncongested. The lungs and pleural spaces are clear. No pneumothorax is seen. The skeletal structures are osteopenic. The bony thorax is grossly intact. A left shoulder arthroplasty is in place. Fusion hardware is seen in the lower cervical spine. IMPRESSION: Cardiomegaly with no active disease in the chest. ACT 112: Negative or not required by law. Electronically signed by: Yemi Amador M.D. 04/05/2021 6:44 PM Discharge Plan Visit Data Chief Complaint: Hypotension Stated Complaint: LOW BLOOD PRESSURE,WEAK,DISORIENTED ED Provider: Odell Mosley Discharge Problem: Weakness, Falls, Suspected Lyme disease, Hypomagnesemia Patient Disposition: Being Evaluated by Hospitalist Forms Stand Alone Forms: [facility] Prescriptions Prescriptions: No Action lorazepam 0.5 mg tablet 0.5 mg PO DAILY PRN (Reason: Anxiety) Qty: 20 RF: 0 Hold Instructions: trial of trazodone diclofenac sodium 1 % gel 2 g TOP QID PRN (Reason: pain) Qty: 100 RF: 5 sertraline 50 mg tablet 100 mg PO QAM Qty: 90 RF: 1 candesartan-hydrochlorothiazid 16-12.5 mg tablet 0.5 tab PO QAM Qty: 30 RF: 5 meclizine 25 mg tablet 25 mg PO TID PRN (Reason: dizziness) Qty: 30 RF: 0 levothyroxine 50 mcg tablet 50 mcg PO QAM Qty: 90 RF: 2 cholecalciferol (vitamin D3) 2,000 unit capsule 2,000 units PO QAM RF: 0 Imodium Multi-Symptom Relief 2-125 mg tablet 2 tab PO Q3H PRN (Reason: loose stool) Qty: 30 RF: 0 prednisone 1 mg tablet 3 mg PO DAILY RF: 0 Referrals Referrals: Del Segovia CRNP [Primary Care Provider] - Discharge Problem: Falls Qualifiers: Encounter type: initial encounter Qualified Code(s): W19.XXXA - Unspecified fall, initial encounter
[2021-04-05 17:27] LABS: Basophils # (auto) 0.01 K/uL (0-0.2); Basophils % (auto) 0.1 %; Eosinophils # (auto) 0.17 K/uL (0-0.5); Eosinophils % (auto) 1.4 %; Hematocrit (blood only) 35.5 % (37-47); Hemoglobin 12.3 g/dL (12.0-16.0); Immature Granulocytes # (auto) 0.02 K/uL (0.00-0.02); Immature Granulocytes % (auto) 0.2 %; Lymphocytes # (auto) 1.11 K/uL (1.2-3.4); Lymphocytes % (auto) 9.3 %; Mean Corpuscular Hemoglobin 31.6 pg (25-34); Mean Corpuscular Hgb Conc 34.6 g/dL (32-36); Mean Corpuscular Volume 91.3 fL (80-100); Mean Platelet Volume 9.5 fL (7.4-10.4); Monocytes # (auto) 0.92 K/uL (0.11-0.59); Monocytes % (auto) 7.7 %; Neutrophils # (auto) 9.65 K/uL (1.4-6.5); Neutrophils % (auto) 81.3 %; Platelet Count 190 K/uL (130-400); RDW Coefficient of Variation 13.1 % (11.5-14.5); Red Blood Count 3.89 M/uL (4.2-5.4); White Blood Count 11.88 K/uL (4.8-10.8)
[2021-04-05 17:41] LABS: Prothrombin Time 9.7 Seconds (9.0-12.0)
[2021-04-05 17:56] LABS: Alanine Aminotransferase 73 U/L (12-78); Aspartate Aminotransferase 91 U/L (15-37); BUN Creatinine Ratio 25.3 (10-20); Blood Urea Nitrogen 31 mg/dl (7-18); Carbon Dioxide 20 mmol/L (21-32); Chloride 110 mmol/L (98-107); Creatinine Clr Calc Pharmacy 25.7 ml/min; Est GFR (African American) 49.3 ml/min; Est GFR (Non-African American) 42.5 ml/min; Glucose 94 mg/dl (70-99); Magnesium 1.7 mg/dl (1.8-2.4); Potassium 4.2 mmol/L (3.5-5.1); Sodium 136 mmol/L (136-145)
[2021-04-05] MEDS ORDERED: SODIUM CHLORIDE 0.9% 1000ML 1,000 ML IV ONE (17:57)
[2021-04-05 18:06] LABS: Albumin Globulin Ratio 1.1 (0.9-2); Alkaline Phosphatase 75 U/L (45-117); Bilirubin,Total 0.7 mg/dl (0.2-1); Globulin 3.8 gm/dl (2.5-4.0); Total Protein 7.8 gm/dl (6.4-8.2); Troponin I < 0.015 ng/ml (0-0.045)
--- NOTE | 2021-04-05 18:32 | CT Scan Report ---
CT SCAN OF THE BRAIN WITHOUT IV CONTRAST CLINICAL HISTORY: Falls. Generalized weakness. COMPARISON STUDY: No priors. TECHNIQUE: Unenhanced axial CT scan of the brain is performed from the vertex to the skull base. A do se lowering technique was utilized adhering to the principles of ALARA. CT DOSE: 638.56 mGycm FINDINGS: Brain parenchyma: There are age-related involutional changes noting minimal subcortical and perivent ricular microangiopathic change. There is no hemorrhage, mass effect, or evidence of acute territoria l ischemia by CT criteria. 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 Mineralization i s noted in the basal ganglia. Brewer-white matter differentiation is preserved. No extra-axial fluid co llection is seen. Ventricles, sulci, cisterns: Prominent secondary to involutional change. Intracranial vasculature: There is atherosclerotic calcification of the cavernous carotid and vertebr al arteries. Calvarium: Unremarkable. Sinuses and mastoids: The visualized paranasal sinuses are clear. The mastoid air cells are well pneu matized. Orbits: The bony orbits are grossly intact. There are bilateral ocular lens implants. IMPRESSION: There is no hemorrhage, mass effect, or evidence of acute territorial ischemia by CT gabino bess. ACT 112: Negative or not required by law. Electronically signed by: Yemi Amador M.D. 04/05/2021 6:30 PM
[2021-04-05 18:40] LABS: Lyme Ab IgG w/WB Rflx Negative (Negative)
--- NOTE | 2021-04-05 18:46 | XRay Report ---
SINGLE VIEW CHEST CLINICAL HISTORY: Generalized weakness. FINDINGS: An AP, portable, upright chest radiograph is compared to study dated 07/09/2020. The examina tion is degraded by portable technique and apical lordotic positioning. The heart is enlarged. The pu lmonary vasculature is noncongested. The lungs and pleural spaces are clear. No pneumothorax is seen. The skeletal structures are osteopenic. The bony thorax is grossly intact. A left shoulder arthropla sty is in place. Fusion hardware is seen in the lower cervical spine. IMPRESSION: Cardiomegaly with no active disease in the chest. ACT 112: Negative or not required by law. Electronically signed by: Yemi Amador M.D. 04/05/2021 6:44 PM
[2021-04-05 18:53] LABS: Lyme Ab IgM w/WB Rflx Positive (Negative)
[2021-04-05] MEDS ORDERED: MAGNESIUM SULFATE / D5W 1 GM/100 ML BAG IV STA (19:03)
[2021-04-05] MEDS ORDERED: cefTRIAXone SODIUM 1,000 MG/50 ML BAG IV STA (19:03)
[2021-04-05 19:20] LABS: Appearance Urine Clear (Clear); Bacteria Urine Automated Negative (Negative); Bilirubin Urine Negative (Negative); Blood Urine Negative (Negative); Cast Urine Automated 0 /lpf (0-5); Color Urine Yellow; Glucose Urine UA Negative (Negative); Ketones Urine Negative (Negative); Leukocyte Esterase Urine Trace (Negative); Nitrite Urine Negative (Negative); Protein Urine Negative (Negative); RBC Urine Automated 0-4 /hpf (0-4); Specific Gravity Urine 1.007 (1.000-1.030); Urobilinogen Urine Negative (Negative)
--- NOTE | 2021-04-05 20:18 | History & Physical Report ---
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 Hold candesartan/HCTZ. NSS at 80 mils per hour x1 L Repeat laboratories in a.m. (7) Arthralgia: Plan: See above (8) HTN (hypertension): Plan: Hold candesartan/HCTZ as noted due to acute kidney injury for now (9) Hypothyroid: Plan: Continue levothyroxine 50 mcg every morning (10) Anxiety: Plan: Continue lorazepam 0.5 mg daily as needed. Continue sertraline 100 mg every morning History of Present Illness Chief Complaint: The patient presents to the emergency department with complaint of a few days of progressive weakness, fatigue, myalgias and arthralgias, brain fogginess, and then was unable to raise herself from her chair after eating breakfast this morning, and gently lowered herself to the floor. Primary Care Provider: CAITY Wyman The patient is a 80-year-old female with a past medical history including left shoulder arthritis, SNHL of both ears, hypertension, anxiety, carpal tunnel syndrome, hypothyroidism, GERD, PMR, retinal wrinkling of right eye, and CKD. The patient presents with symptoms as noted above. She denies any recent travels or sick exposures. Work-up in the emergency department included imaging studies: CT head was negative for acute event. Chest x-ray showed cardiomyopathy. Significant laboratories: WBC 11.88, hemoglobin 12.3, hematocrit 35.5, creatinine 1.21, magnesium 1.7, AST 91. COVID-19 testing was negative Lyme IgM positive, Lyme IgG negative. The patient is unaware of any tick exposures Allergies Allergy/AdvReac Type Severity Reaction Status Date / Time Penicillins Allergy Unknown Unknown - Unverified 04/05/21 18:56 Childhood reaction No Known Drug Allergies Allergy Verified 04/05/21 17:43 Home Medications Medication Instructions Recorded Confirmed Type cholecalciferol (vitamin D3) 50 2,000 units PO QAM 02/16/19 04/05/21 History mcg (2,000 unit) capsule loperamide-simethicone 2 mg-125 mg 2 tab PO Q3H PRN #30 tab 04/05/19 04/05/21 Rx tablet (Imodium Multi-Symptom Relief) meclizine 25 mg tablet 25 mg PO TID PRN #30 tab 04/24/19 04/05/21 Rx lorazepam 0.5 mg tablet 0.5 mg PO DAILY PRN #20 tab 08/08/20 04/05/21 Rx diclofenac sodium 1 % topical gel 2 g TOP QID PRN #100 gm 10/04/20 04/05/21 Rx levothyroxine 50 mcg tablet 50 mcg PO QAM #90 tab 11/04/20 04/05/21 Rx sertraline 50 mg tablet 100 mg PO QAM #90 tab 01/10/21 04/05/21 Rx candesartan 16 0.5 tab PO QAM #30 tab 03/24/21 04/05/21 Rx mg-hydrochlorothiazide 12.5 mg tablet prednisone 1 mg tablet 3 mg PO DAILY 04/05/21 04/05/21 History Past Med/Surg History Medical History Anxiety Carpal tunnel syndrome Chronic diarrhea CKD (chronic kidney disease) GERD (gastroesophageal reflux disease) Grief HSV-2 infection HTN (hypertension) Hypothyroid Kidney stone PMR (polymyalgia rheumatica) Primary osteoarthritis, right shoulder Sensorineural hearing loss (SNHL) of both ears SI joint arthritis Unintentional weight loss Surgical History H/O colonoscopy H/O: hysterectomy History of arthroplasty of left shoulder (04/2019) History of carpal tunnel release of both wrists History of cystocele History of ERCP History of esophagogastroduodenoscopy (EGD) History of lithotripsy History of neck surgery History of rotator cuff surgery History of tooth extraction Hx of cataract surgery Hx of cholecystectomy Hx of tonsillectomy Retinal wrinkling, right eye Family History Father Renal failure Cardiovascular disease (Premature) Acute myocardial infarction Diabetes Colon cancer Myocardial infarction Mother Hypertension Brother Acute myocardial infarction Obesity Malignant neoplasm of pancreas Myocardial infarction Sister Colon cancer Daughter Adult celiac disease Denies family history of Ovarian cancer Prostate cancer Crohn's disease Breast cancer Inflammatory bowel diseases (IBD) Social History Smoking Status: Never smoker Second Hand Exposure: No; Do You Dip or Chew Tobacco: No; Tobacco Cessation Education Requested by Patient: No Hx Alcohol Use: Yes Alcohol type: wine Alcohol Intake Frequency: Monthly or Less Hx Substance Use: No Preferred Language: Luxembourgish Communication Ability: Effective Visual Impairment: No Limitations Hearing Ability: Normal Pocket Builder Required: No Beliefs That Will Affect Care: None marital status: Current Living Situation: Alone and Other Current Living Situation Comment: living alone at home usually, daughter lives with pt currently current occupational status: retired How many Children do You have: 2 Other Information That Helps Us Care for You: No Feels Safe at Home: Yes Safety Concerns: Feels Safe At This Time Childhood Exposure to Second-Hand Smoke: No Diet Comment: regular caffeine: Yes (diet coke) during the past year weight has: other Dental Care, Regularly: Yes Physical Activity Frequency: Daily Seatbelt Use: always Sunscreen Use: Yes Assistive Devices: None and Hearing Aid - Bilateral Assistive Devices Comment: hearing aids at home for safe keeping. Review of Systems Review of Systems: The patient denies chest pain, palpitations, shortness of breath, dyspnea on exertion, cough, lower extremity swelling, sore throat, fevers, chills, nausea, vomiting, diarrhea , constipation, abdominal pain, pelvic pain, blood in urine or stool, dysuria, urinary frequency or urgency, loss of consciousness, rash, abnormal bruising or bleeding, focal weakness, numbness or tingling in arms or legs, or night sweats. The review of systems is otherwise negative other than for that already noted above, and at least 10 systems have been reviewed. Physical Exam Physical Exam: The patient is awake, alert and oriented 3, well developed and well nourished, normocephalic and atraumatic, lying in bed and in no acute distress. HEENT--PERRL, EOMI, mucous membranes and oropharynx mildly dry. Neck--supple. No JVD. No bruits. Thyroid normal, trachea midline, no adenopathy. Heart--normal S1 and S2. No murmurs, rubs or gallops. Lungs--clear bilaterally, no respiratory distress, no accessory muscle use. Abdomen--normal bowel sounds and soft. Nontender. Nondistended, no hernias or masses, no organomegaly. Extremities--no cyanosis or clubbing. No edema. Dermatologic--normal skin turgor, normal color, no abnormal lymph nodes, no rash. Neurologic--cranial nerves II through XII grossly intact. Rheumatologic--normal range of motion. Psychiatric--normal affect. Results & Data Results & Data ([facility]) Vital Signs (Past 12 Hours) Vital Signs Temp Pulse Resp BP Pulse Ox 04/05/21 18:30 65 22 110/45 L 96 04/05/21 18:00 69 23 116/58 L 96 04/05/21 17:42 71 15 107/70 97 04/05/21 17:41 96 04/05/21 17:23 82 20 96 04/05/21 17:16 77 22 131/51 L 97 04/05/21 16:57 98.2 F 88 20 105/65 96 Laboratory Results Laboratory Results WBC 11.88 K/uL (4.8-10.8) H 04/05/21 17:17 RBC 3.89 M/uL (4.2-5.4) L 04/05/21 17:17 Hgb 12.3 g/dL (12.0-16.0) 04/05/21 17:17 Hct 35.5 % (37-47) L 04/05/21 17:17 MCV 91.3 fL (80-100) 04/05/21 17:17 MCH 31.6 pg (25-34) 04/05/21 17:17 MCHC 34.6 g/dL (32-36) 04/05/21 17:17 RDW Std Deviation 44.0 fL (36.4-46.3) 04/05/21 17:17 RDW Coeff of [place] 13.1 % (11.5-14.5) 04/05/21 17:17 Plt Count 190 K/uL (130-400) 04/05/21 17:17 MPV 9.5 fL (7.4-10.4) 04/05/21 17:17 Immature Gran % (Auto) 0.2 % 04/05/21 17:17 Neut % (Auto) 81.3 % 04/05/21 17:17 Lymph % (Auto) 9.3 % 04/05/21 17:17 [place] % (Auto) 7.7 % 04/05/21 17:17 Eos % (Auto) 1.4 % 04/05/21 17:17 Baso % (Auto) 0.1 % 04/05/21 17:17 Neut # (Auto) 9.65 K/uL (1.4-6.5) H 04/05/21 17:17 Lymph # (Auto) 1.11 K/uL (1.2-3.4) L 04/05/21 17:17 [place] # (Auto) 0.92 K/uL (0.11-0.59) H 04/05/21 17:17 Eos # (Auto) 0.17 K/uL (0-0.5) 04/05/21 17:17 Baso # (Auto) 0.01 K/uL (0-0.2) 04/05/21 17:17 Immature Gran # (Auto) 0.02 K/uL (0.00-0.02) 04/05/21 17:17 PT 9.7 Seconds (9.0-12.0) 04/05/21 17:17 INR 1.0 (0.9-1.1) 04/05/21 17:17 Sodium 136 mmol/L (136-145) 04/05/21 17:17 Potassium 4.2 mmol/L (3.5-5.1) 04/05/21 17:17 Chloride 110 mmol/L (98-107) H 04/05/21 17:17 Carbon Dioxide 20 mmol/L (21-32) L 04/05/21 17:17 Anion Gap 7.0 (3-11) 04/05/21 17:17 BUN 31 mg/dl (7-18) H 04/05/21 17:17 Creatinine 1.21 mg/dl (0.6-1.2) H 04/05/21 17:17 Est Cr Clr Drug Dosing 25.7 ml/min 04/05/21 17:17 Est GFR ( Amer) 49.3 ml/min 04/05/21 17:17 Est GFR (Non-Af Amer) 42.5 ml/min 04/05/21 17:17 BUN/Creatinine Ratio 25.3 (10-20) H 04/05/21 17:17 Glucose 94 mg/dl (70-99) 04/05/21 17:17 Lactate 1.4 mmol/L (0.4-2.0) 04/05/21 17:17 Calcium 9.0 mg/dl (8.5-10.1) 04/05/21 17:17 Magnesium 1.7 mg/dl (1.8-2.4) L 04/05/21 17:17 Total Bilirubin 0.7 mg/dl (0.2-1) 04/05/21 17:17 AST 91 U/L (15-37) H 04/05/21 17:17 ALT 73 U/L (12-78) 04/05/21 17:17 Alkaline Phosphatase 75 U/L (45-117) 04/05/21 17:17 Troponin I < 0.015 ng/ml (0-0.045) 04/05/21 17:17 Total Protein 7.8 gm/dl (6.4-8.2) 04/05/21 17:17 Albumin 4.0 gm/dl (3.4-5.0) 04/05/21 17:17 Globulin 3.8 gm/dl (2.5-4.0) 04/05/21 17:17 Albumin/Globulin Ratio 1.1 (0.9-2) 04/05/21 17:17 TSH 3.860 uIu/ml (0.300-4.500) 04/05/21 17:17 Urine Color Yellow 04/05/21 19:09 Urine Appearance Clear (Clear) 04/05/21 19:09 Urine pH 5.0 (4.5-7.5) 04/05/21 19:09 Ur Specific [place] 1.007 (1.000-1.030) 04/05/21 19:09 Urine Protein Negative (Negative) 04/05/21 19:09 Urine Glucose (UA) Negative (Negative) 04/05/21 19:09 Urine Ketones Negative (Negative) 04/05/21 19:09 Urine Blood Negative (Negative) 04/05/21 19:09 Urine Nitrite Negative (Negative) 04/05/21 19:09 Urine Bilirubin Negative (Negative) 04/05/21 19:09 Urine Urobilinogen Negative (Negative) 04/05/21 19:09 Ur Leukocyte Esterase Trace (Negative) H 04/05/21 19:09 Urine WBC (Auto) 1-5 /hpf (0-5) 04/05/21 19:09 Urine RBC (Auto) 0-4 /hpf (0-4) 04/05/21 19:09 U Hyaline Cast (Auto) 0 /lpf (0-5) 04/05/21 19:09 U Epithel Cells (Auto) 5-10 /lpf (0-5) H 04/05/21 19:09 Urine Bacteria (Auto) Negative (Negative) 04/05/21 19:09 Anaplasma Smear See Comment 04/05/21 17:17 Lyme Disease IgG Ab Negative (Negative) 04/05/21 17:17 Lyme Disease IgM Ab Positive (Negative) A 04/05/21 17:17 COVID-19 Eval Order Covid19 at [facility] 04/05/21 17:40 SARS-CoV-2 (PCR) NEGATIVE (Negative) 04/05/21 17:[address] 04/05/21 17:03 CT SCAN OF THE BRAIN WITHOUT IV CONTRAST CLINICAL HISTORY: Falls. Generalized weakness. COMPARISON STUDY: No priors. TECHNIQUE: Unenhanced axial CT scan of the brain is performed from the vertex to the skull base. A dose lowering technique was utilized adhering to the principles of ALARA. CT DOSE: 638.56 mGycm FINDINGS: Brain parenchyma: There are age-related involutional changes noting minimal subcortical and periventricular microangiopathic change. There is no hemorrhage, mass effect, or evidence of acute territorial ischemia by CT criteria. 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 Mineralization is noted in the basal ganglia. Brewer-white matter differentiation is preserved. No extra-axial fluid collection is seen. Ventricles, sulci, cisterns: Prominent secondary to involutional change. Intracranial vasculature: There is atherosclerotic calcification of the cavernous carotid and vertebral arteries. Calvarium: Unremarkable. Sinuses and mastoids: The visualized paranasal sinuses are clear. The mastoid air cells are well pneumatized. Orbits: The bony orbits are grossly intact. There are bilateral ocular lens implants. IMPRESSION: There is no hemorrhage, mass effect, or evidence of acute territorial ischemia by CT criteria. ACT 112: Negative or not required by law. Electronically signed by: Yemi Amador M.D. 04/05/2021 6:30 PM Chest X-Ray 04/05/21 17:04 SINGLE VIEW CHEST CLINICAL HISTORY: Generalized weakness. FINDINGS: An AP, portable, upright chest radiograph is compared to study dated 07/09/2020. The examination is degraded by portable technique and apical lordotic positioning. The heart is enlarged. The pulmonary vasculature is noncongested. The lungs and pleural spaces are clear. No pneumothorax is seen. The skeletal structures are osteopenic. The bony thorax is grossly intact. A left shoulder arthroplasty is in place. Fusion hardware is seen in the lower cervical spine. IMPRESSION: Cardiomegaly with no active disease in the chest. ACT 112: Negative or not required by law. Electronically signed by: Yemi Amador M.D. 04/05/2021 6:44 PM Code Status & VTE Plan Code Status Full code VTE Prophylaxis Plan VTE Prophylaxis will be ordered: Yes PG Care Time/CCT Total # of Minutes Spent Total Time Spent with Patient: Total time spent is greater than 50% in coordination of care (as documented) at patient's floor/unit and/or counseling patient: Coding Level of Care Code 59543 Initial Inpt Care Lvl 3 Diagnoses Acute Lyme disease A69.20 Weakness R53.1 Falls W19.XXXA Encounter type: initial encounter Myalgia M79.10 Arthralgia M25.50 HTN (hypertension) I10 Hypertension type: essential hypertension PMR (polymyalgia rheumatica) M35.3 Hypothyroid E03.9 Anxiety F41.9 Acute kidney injury superimposed on chronic kidney disease N17.9; N18.9 (1) Falls Encounter type: initial encounter Qualified Code(s): W19.XXXA - Unspecified fall, initial encounter (2) HTN (hypertension) Hypertension type: essential hypertension Qualified Code(s): I10 - Essential (primary) hypertension
[2021-04-05] MEDS ORDERED: LORazepam 0.5 MG TAB PO PRN (21:08)
[2021-04-05] MEDS ORDERED: ENOXAPARIN INJ 30 MG/0.3 ML SYR SQ SCH (21:08)
[2021-04-05] MEDS ORDERED: HYDROCORTISONE SOD SUCCINATE 100 MG/2 ML VIAL IV SCH (21:08)
[2021-04-05] MEDS ORDERED: ONDANSETRON INJ 2 MG/ML 2 ML VIAL IV PRN (21:08)
[2021-04-05] MEDS ORDERED: ACETAMINOPHEN 325 MG TAB PO PRN (21:08)
[2021-04-05] MEDS ORDERED: DICLOFENAC SOD 1% GEL 100 GM TUBE EXT PRN (21:08)
[2021-04-05] MEDS ORDERED: LOPERAMIDE HCL 2 MG CAP PO PRN (22:10)
[2021-04-05] MEDS: HYDROCORTISONE SOD 100 MG in SYRINGE 0 ML IV SCH (22:23)
[2021-04-05] MEDS: NSS + 20MEQ KCL 20 MEQ/1,000 ML BAG IV SCH (22:23)
[2021-04-05] MEDS: DOXYCYCLINE HYCLATE 100 MG in DEXTROSE 5% 100 ML IV SCH (22:23)
[2021-04-06] MEDS: LEVOTHYROXINE SODIUM 50 MCG TABLET PO SCH (05:22)
[2021-04-06 06:12] LABS: Basophils # (auto) 0.01 K/uL (0-0.2); Basophils % (auto) 0.2 %; Eosinophils # (auto) 0.01 K/uL (0-0.5); Eosinophils % (auto) 0.2 %; Hematocrit (blood only) 33.9 % (37-47); Hemoglobin 11.5 g/dL (12.0-16.0); Immature Granulocytes # (auto) 0.01 K/uL (0.00-0.02); Immature Granulocytes % (auto) 0.2 %; Lymphocytes # (auto) 0.63 K/uL (1.2-3.4); Lymphocytes % (auto) 9.6 %; Mean Corpuscular Hemoglobin 31.1 pg (25-34); Mean Corpuscular Hgb Conc 33.9 g/dL (32-36); Mean Corpuscular Volume 91.6 fL (80-100); Mean Platelet Volume 9.8 fL (7.4-10.4); Monocytes # (auto) 0.18 K/uL (0.11-0.59); Monocytes % (auto) 2.7 %; Neutrophils # (auto) 5.75 K/uL (1.4-6.5); Neutrophils % (auto) 87.1 %; Platelet Count 165 K/uL (130-400); RDW Coefficient of Variation 12.9 % (11.5-14.5); RDW Standard Deviation 43.4 fL (36.4-46.3); White Blood Count 6.59 K/uL (4.8-10.8)
[2021-04-06 06:35] LABS: Albumin Level 3.2 gm/dl (3.4-5.0); BUN Creatinine Ratio 24.2 (10-20); Calcium 8.5 mg/dl (8.5-10.1); Est GFR (African American) 62.1 ml/min; Est GFR (Non-African American) 53.5 ml/min; Magnesium 2.2 mg/dl (1.8-2.4); Potassium 4.6 mmol/L (3.5-5.1)
[2021-04-06 06:56] LABS: Bilirubin,Total 0.6 mg/dl (0.2-1); Globulin 3.3 gm/dl (2.5-4.0); Total Protein 6.5 gm/dl (6.4-8.2)
[2021-04-06] MEDS: SERTRALINE HCL 100 MG TABLET PO SCH (09:00)
[2021-04-06] MEDS ORDERED: [UNRECOGNIZED DRUG - OTHER] PO SCH (09:00)
[2021-04-06] MEDS: HYDROCORTISONE SOD 100 MG in SYRINGE 0 ML IV SCH ×2 (09:01→15:46)
[2021-04-06] MEDS: CHOLECALCIFEROL 1,000 UNITS 25 MCG TAB PO SCH (09:01)
[2021-04-06] MEDS: HEPARIN SOD 5,000 UNIT/0.5 ML VIAL SQ SCH ×2 (09:03→20:48)
[2021-04-06] MEDS: NSS + 20MEQ KCL 20 MEQ/1,000 ML BAG IV SCH (10:46)
--- NOTE | 2021-04-06 13:09 | Hospitalist Progress Note ---
Date of Service April 06, 2021 Assessment & Plan (1) Weakness: Plan: Weakness bilateral lower extremity -?secondary to acute Lyme disease - IgM positive. Western blot sent. ? vs other tick borne illness. 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 -Continue doxycycline for treatment of Lyme. Discontinue Rocephin as she likely does not have neurological manifestations of Lyme. -Consider PT and OT consultation tomorrow after receiving a full day of treatment. Acute Lyme Disease -See above ANGELI superimposed on CKD -Creatinine today is 1.00, on admission it was 1.21. BUN still mildly elevated at 24. -Continue to withhold candesartan and hydrochlorothiazide - resume in am. -IV fluids discontinued as patient is tolerating oral intake. Polymyalgia rheumatica -Continue 3 mg p.o. daily prednisone. Hypertension -Continue to withhold candesartan and hydrochlorothiazide -Pressures have been normotensive while hospitalized. Hypothyroidism -Continue levothyroxine 50 mcg p.o. daily Anxiety -Continue lorazepam 0.5 mg p.o. daily as needed -Continue sertraline 100 mg p.o. daily DVT proph - Heparin Admission and Anticipated Discharge Date Admission Date: April 05, 2021 Supervising Physician Co-Signing Physician Notes Resident Physician Supervision Note: I independently interviewed and examined the patient and verified the rock history and physical, reviewed labs and image studies and agree with resident Dr. Fried findings and care plan. Subjective Patient is a pleasant 80-year-old female seen at bedside this morning. Patient reports that she had fallen yesterday which had brought her to the ER where she had a work-up done that had revealed IgM for Lyme disease. She reports that she has been feeling weak and fatigued for the past 2 days with associated arthralgias in her hands, elbows, shoulders, and knees. She reports that when she walks she would favor one side which would cause her to drift to the left. She reports that she is on chronic steroid use due to the past medical history of polymyalgia rheumatica. Today she reports that her symptoms have improved and she feels much better albeit she is not recovered all of her strength. She reports that she has no loss of appetite and is eating breakfast as we are having our discussion this morning. She denies any fever, chills, nausea, shortness of breath, or chest pain. Review of Systems Review of Systems: All systems reviewed & are unremarkable except as noted in HPI & below Physical Exam Constitutional: WD/WN, vitals as above Eyes: + anicteric sclerae Respiratory: normal respiratory effort, lungs clear to auscultation Cardiovascular: RRR, no murmur, no edema Gastrointestinal (Abdomen): normal bowel sounds, soft, nontender, no hepatosplenomegaly Musculoskeletal: Head/Neck/Chest: normocephalic LE strength 3/5 b/l. UE strength 5/5 b/l. Skin: no rashes, warm and dry Neurologic: CN's II-XI intact bilaterally and moves all extremities Psychiatric: A+Ox3, euthymic affect Lymphatic: no cervical lymphadenopathy Results & Data Results & Data ([facility]) Vital Signs (Past 12 Hours) Vital Signs Temp Pulse Pulse Resp BP Pulse Ox 04/06/21 11:52 36.9 C 101 H 18 127/67 96 04/06/21 07:45 36.4 C L 54 L 16 106/49 L 98 04/06/21 07:12 50 L 04/06/21 03:13 36.5 C 57 L 16 103/60 96
[2021-04-06] MEDS: DOXYCYCLINE HYCLATE 100 MG in DEXTROSE 5% 100 ML IV SCH ×2 (13:27→23:19)
[2021-04-06] MEDS ORDERED: cefTRIAXone SODIUM 1,000 MG in DEXTROSE 5% 50 ML IV SCH (19:00)
--- NOTE | 2021-04-06 22:48 | Electrocardiogram Report ---
Test Reason : Blood Pressure : / mmHG Vent. Rate : 079 BPM Atrial Rate : 079 BPM P-R Int : 146 ms QRS Dur : 068 ms QT Int : 370 ms P-R-T Axes : 017 -07 012 degrees QTc Int : 424 ms Normal sinus rhythm with sinus arrhythmia Low voltage QRS Inferior infarct , age undetermined Poor R wave progression, consider anterior FL vs. lead placement vs. LVH Nonspecific T wave abnormality Abnormal ECG When compared with ECG of 09-JUL-2020 15:38, No significant change was found Confirmed by Rufus Luis ([id number]) on 04/06/2021 10:48:09 PM Referred By: REFERRED SELF Confirmed By:Rufus Luis
[2021-04-07] MEDS: HYDROCORTISONE SOD 100 MG in SYRINGE 0 ML IV SCH ×3 (01:09→15:35)
[2021-04-07] MEDS: LEVOTHYROXINE SODIUM 50 MCG TABLET PO SCH (05:31)
[2021-04-07 06:07] LABS: Basophils # (auto) 0.01 K/uL (0-0.2); Basophils % (auto) 0.1 %; Hematocrit (blood only) 32.1 % (37-47); Hemoglobin 11.1 g/dL (12.0-16.0); Immature Granulocytes # (auto) 0.05 K/uL (0.00-0.02); Immature Granulocytes % (auto) 0.4 %; Lymphocytes # (auto) 0.73 K/uL (1.2-3.4); Lymphocytes % (auto) 6.5 %; Mean Corpuscular Hemoglobin 31.5 pg (25-34); Mean Corpuscular Hgb Conc 34.6 g/dL (32-36); Mean Corpuscular Volume 91.2 fL (80-100); Mean Platelet Volume 9.7 fL (7.4-10.4); Monocytes # (auto) 0.39 K/uL (0.11-0.59); Monocytes % (auto) 3.5 %; Neutrophils # (auto) 10.08 K/uL (1.4-6.5); Neutrophils % (auto) 89.5 %; Platelet Count 165 K/uL (130-400); RDW Coefficient of Variation 12.9 % (11.5-14.5); Red Blood Count 3.52 M/uL (4.2-5.4); White Blood Count 11.26 K/uL (4.8-10.8)
[2021-04-07 07:00] LABS: Albumin Globulin Ratio 0.9 (0.9-2); BUN Creatinine Ratio 19.1 (10-20); Bilirubin,Total 0.3 mg/dl (0.2-1); Calcium 8.5 mg/dl (8.5-10.1); Creatinine Clr Calc Pharmacy 25.3 ml/min; Est GFR (African American) 43.6 ml/min; Est GFR (Non-African American) 37.6 ml/min; Globulin 3.2 gm/dl (2.5-4.0); Magnesium 1.9 mg/dl (1.8-2.4); Potassium 3.9 mmol/L (3.5-5.1); Total Protein 6.2 gm/dl (6.4-8.2)
[2021-04-07] MEDS ORDERED: ADVANCED PROBIOTIC 1250 MG CAPSULE PO SCH (09:00)
[2021-04-07] MEDS: SERTRALINE HCL 100 MG TABLET PO SCH (09:02)
[2021-04-07] MEDS: HEPARIN SOD 5,000 UNIT/0.5 ML VIAL SQ SCH (09:04)
[2021-04-07] MEDS: CHOLECALCIFEROL 1,000 UNITS 25 MCG TAB PO SCH (09:04)
[2021-04-07] MEDS: DOXYCYCLINE HYCLATE 100 MG in DEXTROSE 5% 100 ML IV SCH (12:00)
--- NOTE | 2021-04-07 13:38 | Discharge Summary ---
Date of Service April 07, 2021 Admission HPI Per Admitting Provider The patient is a 80-year-old female with a past medical history including left shoulder arthritis, SNHL of both ears, hypertension, anxiety, carpal tunnel syndrome, hypothyroidism, GERD, PMR, retinal wrinkling of right eye, and CKD. The patient presents with symptoms as noted above. She denies any recent travels or sick exposures. Work-up in the emergency department included imaging studies: CT head was negative for acute event. Chest x-ray showed cardiomyopathy. Significant laboratories: WBC 11.88, hemoglobin 12.3, hematocrit 35.5, creatinine 1.21, magnesium 1.7, AST 91. COVID-19 testing was negative Lyme IgM positive, Lyme IgG negative. The patient is unaware of any tick exposures Admission Exam Per Admitting Provider The patient is awake, alert and oriented 3, well developed and well nourished, normocephalic and atraumatic, lying in bed and in no acute distress. HEENT--PERRL, EOMI, mucous membranes and oropharynx mildly dry. Neck--supple. No JVD. No bruits. Thyroid normal, trachea midline, no adenopathy. Heart--normal S1 and S2. No murmurs, rubs or gallops. Lungs--clear bilaterally, no respiratory distress, no accessory muscle use. Abdomen--normal bowel sounds and soft. Nontender. Nondistended, no hernias or masses, no organomegaly. Extremities--no cyanosis or clubbing. No edema. Dermatologic--normal skin turgor, normal color, no abnormal lymph nodes, no rash. Neurologic--cranial nerves II through XII grossly intact. Rheumatologic--normal range of motion. Psychiatric--normal affect. Principal Diagnosis Acute Lyme Disease Discharge Exam Constitutional WD/WN, vitals as above Eyes + anicteric sclerae Respiratory normal respiratory effort, lungs clear to auscultation Cardiovascular RRR, no murmur, no edema Gastrointestinal (Abdomen) normal bowel sounds, soft, nontender, no hepatosplenomegaly Musculoskeletal Head/Neck/Chest: normocephalic LE 4/5 muscle strength b/l, UE 5/5 b/l Skin no rashes, warm and dry Neurologic CN's II-XI intact bilaterally and moves all extremities Psychiatric A+Ox3, euthymic affect Lymphatic no cervical lymphadenopathy Discharge Data Allergies Allergy/AdvReac Type Severity Reaction Status Date / Time Penicillins Allergy Unknown Unknown - Unverified 04/05/21 18:56 Childhood reaction No Known Drug Allergies Allergy Verified 04/05/21 17:43 Consultations 04/05/21 19:12 ED Decision to Admit Stat Ordered Studies 04/05/21 17:03 CT head/brain wo con Stat Hospital Course (1) Weakness: Weakness -Bilateral lower extremity weakness likely secondary to acute Lyme disease -Patient also has polymyalgia rheumatica on chronic steroid use as this may play a factor -Continue doxycycline for treatment of Lyme. Discontinue Rocephin as she does not show neurological manifestations of Lyme. -PT and OT reported it was safe for her to return home without outpatient physical therapy or occupational therapy. -Follow-up with PCP within 1 week, recommended she receive a BMP at this time to assess kidney function. Acute Lyme Disease -See above ANGELI superimposed on CKD -Creatinine today is 1.35, on admission it was 1.21. BUN improved to 19.1. -Continue to withhold candesartan and hydrochlorothiazide. BMP when seeing PCP. -Be sure to consume at least 60oz of fluids per day Polymyalgia rheumatica -Continue 3 mg p.o. daily prednisone. Hypertension -Continue to withhold candesartan and hydrochlorothiazide due to ANGELI until PCP is seen -Pressures have been normotensive while hospitalized. Hypothyroidism -Continue levothyroxine 50 mcg p.o. daily Anxiety -Continue lorazepam 0.5 mg p.o. daily as needed -Continue sertraline 100 mg p.o. daily Total Time Total Time Spent Total Time Spent (In Minutes): <30 Discharge Plan Discharge Items Patient Disposition: Home - Self-Care Reason For Visit: ACUTE LYME DISEASE Discharge Diagnosis: Acute Lyme Disease Activity: Per Instructions section Non-emergency contact: Primary Care Provider Call non-emergency contact if: you have any medication questions and your symptoms worsen Follow-up/Referrals: Del Segovia CRNP [Primary Care Provider] - Diet: Regular Addtl Attending Provider Instructions: You were seen in hospital for bilateral lower extremity weakness secondary to acute Lyme disease. While you were in the hospital you were treated with antibiotics which seems to have improved your weakness. You were seen with physical therapy and Occupational Therapy and they deemed you stable to go home. At this time we are recommending not taking your blood pressure medication until you follow-up with your PCP within the next week and have your kidney function checked at that time. It was a pleasure to participate in your care and we wish you the best in your recovery. Pending Studies at Discharge: No Stand-Alone Forms: My [facility], Smoking Cessation Medications and DC Order Prescriptions: New Probiotic 15 billion cell capsule 1 cap PO DAILY Qty: 30 RF: 0 doxycycline hyclate 100 mg tablet 100 mg PO BID 12 Days Qty: 24 RF: 0 Continued lorazepam 0.5 mg tablet 0.5 mg PO DAILY PRN (Reason: Anxiety) Qty: 20 RF: 0 Hold Instructions: trial of trazodone diclofenac sodium 1 % gel 2 g TOP QID PRN (Reason: pain) Qty: 100 RF: 5 sertraline 50 mg tablet 100 mg PO QAM Qty: 90 RF: 1 meclizine 25 mg tablet 25 mg PO TID PRN (Reason: dizziness) Qty: 30 RF: 0 levothyroxine 50 mcg tablet 50 mcg PO QAM Qty: 90 RF: 2 cholecalciferol (vitamin D3) 2,000 unit capsule 2,000 units PO QAM RF: 0 Imodium Multi-Symptom Relief 2-125 mg tablet 2 tab PO Q3H PRN (Reason: loose stool) Qty: 30 RF: 0 prednisone 1 mg tablet 3 mg PO DAILY RF: 0 Discontinued candesartan-hydrochlorothiazid 16-12.5 mg tablet 0.5 tab PO QAM Qty: 30 RF: 5 Discharge Orders: Discharge Order (Routine); Ordered 04/07/21 Ordered By: Wally Cummings/Other Patient Handouts: Preventing Lyme Disease, ED Lyme Disease Admission Data Admit Date/Time: 04/05/21 19:50 Attending Provider: Jarvis Melo Admit Provider: Rohith Romero Primary Care Provider: Del Segovia Other Providers: Rohith Romero ; Eli Figueroa Other Interventions: Discharge Summary Assessment (RN) Last Done: 04/07/21 17:13 Supervising Physician Co-Signing Physician Notes I personally examined the patient and verified all rock points of history and exam, discussed case, and agree with decision making with Dr Fried. Feeling better and would very much like to go home. Discussed diagnosis, answered questions to the best my ability and to her satisfaction. Vitals noted, in general she is awake and alert pleasant no distress. HEENT normocephalic atraumatic mucous membranes moist. Breathing unlabored no accessory muscle use good effort. Skin shows no rashes no pallor or icterus. Neuro without focal deficits. Lymewith weakness superimposed on polymyalgia rheumaticaappearing stable for home now. Doxycycline to complete 14 days of therapy. Discussed anticipated slow resolution of symptoms over probably the next month or so, given the mixture of Lyme and her polymyalgia. Mildly elevated creatininep.o. fluid intake. Supportive care, outpatient labs. Diarrheaacute on chronic, likely antibiotic side effect, not C. difficile. She notes probiotics have helpedprescription sent. Stable for home, otherwise as above
--- NOTE | 2021-04-07 17:27 | Billing Data ---
Date of Service April 07, 2021 Coding Level of Care Code D/C DAY MANAGEMENT <30 MINS
[2021-04-09 02:20] LABS: 18KDIGG Band NON-REACTIVE; 23KDIGG Band REACTIVE; 23KDIGM Band REACTIVE; 28KDIGG Band NON-REACTIVE; 30KDIGG Band NON-REACTIVE; 39KDIGG Band NON-REACTIVE; 39KDIGM Band NON-REACTIVE; 41KDIGG Band REACTIVE; 41KDIGM Band NON-REACTIVE; 45KDIGG Band NON-REACTIVE; 58KDIGG Band NON-REACTIVE; 66KDIGG Band NON-REACTIVE; 93KDIGG Band NON-REACTIVE; Lyme Antibodies, WB IgG NEGATIVE (NEGATIVE); Lyme Antibodies, WB IgM NEGATIVE (NEGATIVE)
[2021-04-11 15:02] LABS: Ehrlichia chaff IgG Ab <1:64 (<1:64); Ehrlichia chaff IgM Ab <1:20 (<1:20)
== END 2021-04-07 18:00 | disposition home or self-care (01) ==
LOC: ED 16:54 → SUATTDRO 19:50 → 2N 19:50 → INTOOBSV 19:50 → 2N 20:39

== ENCOUNTER 2022-06-18 11:35 | Observation (INO) ==
--- NOTE | 2022-04-27 15:03 | PAT Medication Instructions ---
Medication Instructions Date of Service April 27, 2022 Home Medications Medication Instructions Recorded loperamide-simethicone 2 mg-125 mg 2 tab PO Q3H PRN loose stool #30 04/05/19 tablet (Imodium Multi-Symptom tabs Relief) meclizine 25 mg tablet 25 mg PO TID PRN dizziness #30 tabs 04/24/19 lorazepam 0.5 mg tablet 0.5 mg PO DAILY PRN Anxiety #20 10/28/21 tabs doxycycline hyclate 100 mg capsule 100 mg PO BID 21 days #42 caps 02/04/22 clobetasol 0.05 % topical ointment 1 applic topical .COMPLEX #30 grams 03/03/22 levothyroxine 75 mcg tablet 75 mcg PO QAM #90 tabs 03/31/22 celecoxib 200 mg capsule 200 mg PO QAM #90 caps 04/14/22 diclofenac sodium 1 % topical gel 2 g topical QID PRN pain #100 grams 04/14/22 sertraline 50 mg tablet 100 mg PO QAM #180 tabs 04/16/22 cholecalciferol (vitamin D3) 50 mcg (2,000 unit) capsule 2,000 units PO QAM loperamide-simethicone 2 mg-125 mg tablet (Imodium Multi-Symptom Relief) 2 tab PO Q3H PRN loose stool meclizine 25 mg tablet 25 mg PO TID PRN dizziness lorazepam 0.5 mg tablet 0.5 mg PO DAILY PRN Anxiety doxycycline hyclate 100 mg capsule 100 mg PO BID clobetasol 0.05 % topical ointment 1 applic topical .COMPLEX levothyroxine 75 mcg tablet 75 mcg PO QAM celecoxib 200 mg capsule 200 mg PO QAM diclofenac sodium 1 % topical gel 2 g topical QID PRN pain sertraline 50 mg tablet 100 mg PO QAM candesartan 16 mg tablet 16 mg PO QAM prednisone 5 mg tablet 5 mg PO QAM ASK your surgeon for instructions celecoxib 200 mg capsule 200 mg PO QAM STOP taking 24 hours before surgery clobetasol 0.05 % topical ointment 1 applic topical .COMPLEX diclofenac sodium 1 % topical gel 2 g topical QID PRN pain DO NOT take the morning of surgery cholecalciferol (vitamin D3) 50 mcg (2,000 unit) capsule 2,000 units PO QAM loperamide-simethicone 2 mg-125 mg tablet (Imodium Multi-Symptom Relief) 2 tab PO Q3H PRN loose stool candesartan 16 mg tablet 16 mg PO QAM Take morning of surgery With a small sip of water, OTHERWISE NOTHING TO EAT OR DRINK AFTER MIDNIGHT: meclizine 25 mg tablet 25 mg PO TID PRN dizziness (if needed) lorazepam 0.5 mg tablet 0.5 mg PO DAILY PRN Anxiety (if needed) doxycycline hyclate 100 mg capsule 100 mg PO BID levothyroxine 75 mcg tablet 75 mcg PO QAM sertraline 50 mg tablet 100 mg PO QAM prednisone 5 mg tablet 5 mg PO QAM Take evening before surgery loperamide-simethicone 2 mg-125 mg tablet (Imodium Multi-Symptom Relief) 2 tab PO Q3H PRN loose stool (if needed) meclizine 25 mg tablet 25 mg PO TID PRN dizziness (if needed) lorazepam 0.5 mg tablet 0.5 mg PO DAILY PRN Anxiety (if needed) doxycycline hyclate 100 mg capsule 100 mg PO BID Other Notes If you have any questions please call us at [phone] or [phone] or [phone] or [phone]
--- NOTE | 2022-05-07 10:29 | Anesthesiology Consultation ---
Date of Service May 07, 2022 Assessment & Plan (1) Encounter for pre-operative examination: - Patient acceptable risk for surgery pending surgeon-ordered PCP preop evaluation ([facility]; scheduled 05/13). - COVID screening: Per assessment on 05/07: No known COVID-19 positive contacts or current COVID-19 related symptoms. Travel screen negative. Patient vaccinated. At surgeon discretion if preop Covid testing being done. - Outpatient joint assessment: Pt currently scheduled for inpatient pathway. If surgeon requests review for outpatient joint pathway, patient is acceptable candidate for outpatient joint program from anesthesia standpoint pending surgeon's office assessment of pt motivation/strong home support/completion of same day joint program preop requirements. Chart Review Chart Review: Patient seen in Pre Admission Testing Teaching & Discussion Pre-Anesthesia Teaching/Discussion Notes: Instructed NPO after midnight before surgery,except medications with 15 cc of water. Medication instructions provided according to the PAT guidelines. History Surgery Operation Date: 06/18/22 07:00 Proposed Procedures p Right Reverse Total Shoulder Arthroplasty - Alexandr Ramirez MD Height/Weight Height: 4 ft 11 in Weight: 51.5 kg Allergies Allergy/AdvReac Type Severity Reaction Status Date / Time No Known Drug Allergies Allergy Verified 04/27/22 10:47 Medications Home Medications Medication Instructions Recorded Confirmed Last Taken cholecalciferol (vitamin D3) 50 2,000 units PO QAM 02/16/19 04/27/22 04/05/21 mcg (2,000 unit) capsule loperamide-simethicone 2 mg-125 mg 2 tab PO Q3H PRN loose stool #30 04/05/19 04/27/22 04/05/21 tablet (Imodium Multi-Symptom tabs Relief) meclizine 25 mg tablet 25 mg PO TID PRN dizziness #30 tabs 04/24/19 04/27/22 Unknown lorazepam 0.5 mg tablet 0.5 mg PO DAILY PRN Anxiety #20 10/28/21 04/27/22 Unknown tabs doxycycline hyclate 100 mg capsule 100 mg PO BID 21 days #42 caps 02/04/22 04/27/22 Unknown clobetasol 0.05 % topical ointment 1 applic topical .COMPLEX #30 grams 03/03/22 04/27/22 Unknown levothyroxine 75 mcg tablet 75 mcg PO QAM #90 tabs 03/31/22 04/27/22 Unknown celecoxib 200 mg capsule 200 mg PO QAM #90 caps 04/14/22 04/27/22 Unknown diclofenac sodium 1 % topical gel 2 g topical QID PRN pain #100 grams 04/14/22 04/27/22 Unknown sertraline 50 mg tablet 100 mg PO QAM #180 tabs 04/16/22 04/27/22 Unknown candesartan 16 mg tablet 16 mg PO QAM 04/27/22 04/27/22 Unknown prednisone 5 mg tablet 5 mg PO QAM 04/27/22 04/27/22 Unknown Past Medical History Medical History (Updated 05/07/22 @ 11:01 by Rafaela Doyle) Anxiety Chronic diarrhea Controlled with immodium Chronic kidney disease, stage 3a Follows with Dr. Forde GERD (gastroesophageal reflux disease) Grief Loss of 09/2019 History of blood transfusion Remote hx in setting of miscarriage HSV-2 infection Hx, no current issues HTN (hypertension) Hypothyroid Kidney stone PMR (polymyalgia rheumatica) Prednisone 5mg daily Primary osteoarthritis, right shoulder Sensorineural hearing loss (SNHL) of both ears SI joint arthritis Exercise / Class Metabolic Activity II 4-5 Yardwork/Stairs/Walk up hill (one FS (no CP, no SOB)) Past Family History Family History Father Renal failure Cardiovascular disease (Premature) Acute myocardial infarction Diabetes Colon cancer Myocardial infarction Mother Hypertension Brother Acute myocardial infarction Obesity Malignant neoplasm of pancreas Myocardial infarction Sister Colon cancer Daughter Adult celiac disease Denies family history of Ovarian cancer Prostate cancer Crohn's disease Breast cancer Inflammatory bowel diseases (IBD) Past Surgical History Surgical History H/O colonoscopy H/O: hysterectomy History of arthroplasty of left shoulder Left TSA (05/03/19): Grade view 1, MAC#3, ETT 7 + PNB at [facility]. No issues noted per post-op anesthesia progress note. History of carpal tunnel release of both wrists History of cystocele S/P REPAIR History of ERCP History of esophagogastroduodenoscopy (EGD) History of lithotripsy History of neck surgery FUSION > ROM WNL History of rotator cuff surgery RIGHT/LEFT History of tooth extraction Hx of cataract surgery B/L Hx of cholecystectomy Hx of tonsillectomy Retinal wrinkling, right eye HX OF AND REPAIRED Past Anesthesia History No Hx of Anesthesia Complications and No Family Hx of Anesthesia Complications History of PONV No Hx of PONV and Hx of Motion Sickness Social History Smoking Status: Never smoker Do You Dip or Chew Tobacco: No Hx Alcohol Use: Yes Alcohol type: wine alcohol intake frequency: holidays/special occasions only Hx Substance Use: No substance use type: does not use Review of Systems Patient denies chest pain, shortness of breath, dyspnea on exertion, fever, chills, cough, wheezing, palpitations. Physical Exam Vital Signs VITALS BP 158/72 P 63 TEMP 98.7 SP02 96%RA RESP 18 PHYSICAL Full cervical extension range of motion. Full TMJ range of motion. TMD 3 finger breaths Mallampati Score 2 Dentition: intact Lungs: clear throughout to auscultation Cardiac: regular rate and rhythm, no murmurs noted Spine: normal Carotid arteries: negative bruit Extremities: no edema Lab Results Anesthesia Preop Results Results Anesthesia Widget: WBC 9.61 K/ul (4.8-10.8) 05/07/22 Hgb 12.5 g/dl (12.0-16.0) 05/07/22 Hct 36.6 % (34.1-44.9) 05/07/22 Plt 195 K/uL (130-400) 05/07/22 Na 140 mmol/L (136-145) 05/07/22 K 3.8 mmol/L (3.5-5.1) 05/07/22 Cl 109 mmol/L (98-107) H 05/07/22 CO2 22 mmol/L (21-32) 05/07/22 BUN 24 mg/dl (6-23) H 05/07/22 Creat 1.10 mg/dl (0.6-1.2) 05/07/22 Glucose Level 92 mg/dl (70-99(Fasting)) 05/07/22 PT 10.4 Seconds (9.0-12.0) 05/07/22 PTT 28.4 Seconds (21.0-31.0) 05/07/22 INR 1.0 (0.9-1.1) 05/07/22 HA1c 5.6 % (4.5-5.6) 05/07/22 Urine Color Yellow 05/07/22 Urine Appearance Clear (Clear) 05/07/22 Urine pH 5.0 (4.5-7.5) 05/07/22 Urine Specific [place] 1.021 (1.000-1.030) 05/07/22 Urine Protein Negative (Negative) 05/07/22 Urine Glucose (UA) Negative (Negative) 05/07/22 Urine Ketones Negative (Negative) 05/07/22 Urine Blood Negative (Negative) 05/07/22 Urine Nitrite Negative (Negative) 05/07/22 Urine Bilirubin Negative (Negative) 05/07/22 Urine Urobilinogen Negative (Negative) 05/07/22 Urine Leukocyte Esterase 2+ (Negative) H 05/07/22 Urine WBC (Auto) 10-30 /hpf (0-5) H 05/07/22 Urine RBC (Auto) 0-4 /hpf (0-4) 05/07/22 Urine Hyaline Casts (Auto) 1-5 /lpf (0-5) 05/07/22 Urine Epithelial Cells (Auto) >30 /lpf (0-5) H 05/07/22 Urine Bacteria (Auto) 4+ (Negative) H 05/07/22 Blood Type B Negative 05/07/22 Antibody Screen POSITIVE A 05/07/22 Testing Laboratory Results Surgeon's office made aware of abnormal UA* Positive antibodies: Blood bank aware- states nothing further needed from PAT.* Electrocardiogram Date: 05/07/22 NSR at 61bpm. Low voltage QRS. Cannot r/o anterior infarct (cited on or before 10/05/2013 per technician inventory specialist comparison). Improved NS TWA in anterior leads. Chest X-Ray Date: 05/07/22 FINDINGS: PA and lateral chest radiographs are compared to study dated 04/05/2021. The cardiomediastinal silhouette is unremarkable noting mild atherosclerotic calcification of the thoracic aorta. Chronic interstitial thickening is similar to previous. Mild scarring/atelectasis is noted at the lung bases. The lungs and pleural spaces are otherwise clear. There is no pneumothorax. The skeletal structures are osteopenic. The bony thorax appears intact. Fusion hardware is noted in the lower cervical spine. Left shoulder arthroplasty is in place. Spondylosis is noted in the thoracic spine. There are surgical clips in the upper abdomen. IMPRESSION: No active disease in the chest. COVID-19 Risk Screen Screening Information COVID-19 Screen Date: 05/07/22 Exposure 21 Days Family/Household +COVID Last 21 Days: No Exposure 10 Days Any COVID Exposure Last 10 Days: No Symptoms Last 10 Days Experienced COVID Sx Last 10 Days: No + COVID 0-90 Days COVID + in Last 0-90 Days: No
--- NOTE | 2022-06-17 07:03 | History & Physical Report ---
Date of Service June 17, 2022 Assessment & Plan (1) Primary osteoarthritis, right shoulder: Plan: Treatment options discussed with the patient. She has failed conservative measures and would like to proceed with surgical invention. Risks, benefits and alternatives to surgery including but not limited to infection, DVT, pain, stiffness, need for revision surgery, damage to blood vessels, damage to nerves, PE, , were discussed with the patient and they wish to proceed. Plan for right reverse total shoulder arthroplasty scheduled for June 18 at [facility] with Dr. Ramirez. All questions answered. She will follow-up postop. History of Present Illness Chief Complaint: Right shoulder pain Primary Care Provider: CAITY Wyman 82-year-old female with past medical history significant for hypertension, hypothyroid, polymyalgia rheumatica, CKD who presents with ongoing right shoulde r pain. She has failed conservative measures including injections and therapy. Pain is interfering with her daily activities. She would like to proceed with surgical intervention. Patient denies headaches, sweats, fevers, chills, double vision, blurred vision, cough, sore throat, dysphagia, chest pain, sob, wheezing, n/v/d/c, numbness, tingling, fatigue, urinary symptoms, mood disorders. ROS positive for right shoulder pain and stiffness. Allergies Allergy/AdvReac Type Severity Reaction Status Date / Time No Known Drug Allergies Allergy Verified 05/28/22 11:21 Home Medications Medication Instructions Recorded Confirmed Type cholecalciferol (vitamin D3) 50 2,000 units PO QAM 02/16/19 05/28/22 History mcg (2,000 unit) capsule loperamide-simethicone 2 mg-125 mg 2 tab PO Q3H PRN loose stool #30 04/05/19 05/28/22 Rx tablet (Imodium Multi-Symptom tabs Relief) meclizine 25 mg tablet 25 mg PO TID PRN dizziness #30 tabs 04/24/19 05/28/22 Rx clobetasol 0.05 % topical ointment 1 applic topical .COMPLEX #30 grams 03/03/22 05/28/22 Rx levothyroxine 75 mcg tablet 75 mcg PO QAM #90 tabs 03/31/22 05/28/22 Rx celecoxib 200 mg capsule 200 mg PO QAM #90 caps 04/14/22 05/28/22 Rx sertraline 50 mg tablet 100 mg PO QAM #180 tabs 04/16/22 05/28/22 Rx candesartan 16 mg tablet 16 mg PO QAM 04/27/22 05/28/22 History prednisone 5 mg tablet 5 mg PO QAM 04/27/22 05/28/22 History nitrofurantoin 100 mg PO Q12H 5 days #10 caps 05/15/22 05/28/22 Rx monohydrate/macrocrystals 100 mg capsule (Macrobid) lorazepam 0.5 mg tablet 0.5 mg PO DAILY PRN Anxiety #20 06/05/22 Rx tabs diclofenac sodium 1 % topical gel 2 g topical QID PRN pain #100 grams 06/09/22 Rx Past Med/Surg History Medical History (Updated 05/13/22 @ 16:20 by Belem Hobson PA-C) Acute kidney injury superimposed on chronic kidney disease Acute Lyme disease Anxiety Chronic diarrhea Controlled with immodium Chronic kidney disease, stage 3a Follows with Dr. Forde GERD (gastroesophageal reflux disease) Grief Loss of 09/2019 History of blood transfusion Remote hx in setting of miscarriage HSV-2 infection Hx, no current issues HTN (hypertension) Hypomagnesemia Hypothyroid Kidney stone PMR (polymyalgia rheumatica) Prednisone 5mg daily Primary osteoarthritis, right shoulder Sensorineural hearing loss (SNHL) of both ears SI joint arthritis Surgical History H/O colonoscopy H/O: hysterectomy History of arthroplasty of left shoulder Left TSA (05/03/19): Grade view 1, MAC#3, ETT 7 + PNB at [facility]. No issues noted per post-op anesthesia progress note. History of carpal tunnel release of both wrists History of cystocele S/P REPAIR History of ERCP History of esophagogastroduodenoscopy (EGD) History of lithotripsy History of neck surgery FUSION > ROM WNL History of rotator cuff surgery RIGHT/LEFT History of tooth extraction Hx of cataract surgery B/L Hx of cholecystectomy Hx of tonsillectomy Retinal wrinkling, right eye HX OF AND REPAIRED Family History Father Renal failure Cardiovascular disease (Premature) Acute myocardial infarction Diabetes Colon cancer Myocardial infarction Mother Hypertension Brother Acute myocardial infarction Obesity Malignant neoplasm of pancreas Myocardial infarction Sister Colon cancer Daughter Adult celiac disease Denies family history of Ovarian cancer Prostate cancer Crohn's disease Breast cancer Inflammatory bowel diseases (IBD) Social History Smoking Status: Never smoker Second Hand Exposure: No; Hx Alcohol Use: Yes Alcohol type: wine Alcohol Intake Frequency: Monthly or Less Hx Substance Use: No Preferred Language: Citizen Of [place] Communication Ability: Effective Visual Impairment: No Limitations Hearing Ability: Normal Product Marketing Intern Required: No Beliefs That Will Affect Care: None marital status: Current Living Situation: Alone current occupational status: retired How many Children do You have: 2 Feels Safe at Home: Yes Childhood Exposure to Second-Hand Smoke: No Diet Comment: regular caffeine: Yes (diet coke) during the past year weight has: other Dental Care, Regularly: Yes Physical Activity Frequency: Daily Seatbelt Use: always Sunscreen Use: Yes Assistive Devices: Hearing Aid - Bilateral Review of Systems All systems reviewed & are unremarkable except as noted in HPI & below Physical Exam Constitutional: well developed and well nourished; no acute distress Eyes: PERRL, conjunctivae normal, anicteric sclerae ENMT: external ear and nose normal, oropharynx normal Neck: trachea midline, no thyromegaly Respiratory: normal respiratory effort, lungs clear to auscultation Cardiovascular: RRR, no murmur, no edema Musculoskeletal: Right shoulder: Tenderness anterior lateral acromion, anterior glenoid. There is positive impingement signs. There is crepitation with range of motion at the subacromial space consistent with chronic rotator cuff disease. Weakness with strength testin/5 abduction, 4+/5 external rotation, 5/5 internal rotation. Active abduction to 90 degrees, forward flexion to 120 degrees, external rotation to 45 degrees. Skin: no rashes, warm and dry Neurologic: patellar DTR's 2+ bilat, sensation intact Psychiatric: A+Ox3, euthymic affect Results & Data ([place]) Diagnostic Findings Right shoulder radiographs demonstrate end-stage osteoarthritis, [id number] glenohumeral joint. MRI demonstrates significant rotator cuff tendinopathy and significant partial tearing of rotator cuff. She does have humeral head elevation on x-rays consistent with chronic rotator cuff disease.
[~2022-06-18 11:35] MED LIST changes: +BUPIVACAINE 0.5 % 5 MG/1 ML PF 10ML VIAL ONE; +BUPIVACAINE LIPOSOME 1.3% 266 MG/20 ML VIAL ONE; -CEFAZOLIN 1000MG 1,000 MG/7.5 ML SYR IV SCH; -CeleBREX 200 MG CAP PO SCH; -ROPIVACAINE 0.5% 5 MG/ML 30 ML VIAL ONE; +TRANEXAMIC ACID 1,000 MG **IV Intra-op IV SCH; +TRANEXAMIC ACID 1,000 MG **IV Pre-op IV SCH; +ceFAZolin 2000MG 2,000 MG/15 ML SYR IV SCH
[2022-06-18] MEDS: CeleBREX 200 MG CAP PO SCH ×2 (12:20→12:29)
[2022-06-18] MEDS ORDERED: fentaNYL citrate 100 MCG/2 ML VIAL IV PRN (13:05)
[2022-06-18] MEDS ORDERED: ePHEDrine sulfate 50 MG/ML AMP IV PRN (13:05)
[2022-06-18] MEDS ORDERED: ATROPINE SULFATE 0.1 MG/ML 10ML SYR IV PRN (13:05)
[2022-06-18] MEDS ORDERED: ONDANSETRON INJ 2 MG/ML 2 ML VIAL IV PRN ×2 (13:05→17:39)
[2022-06-18] MEDS ORDERED: LIDOCAINE 2% MPF LOCAL 5 ML VIAL INFIL ONE (13:08)
[2022-06-18] MEDS ORDERED: ONDANSETRON INJ 2 MG/ML 2 ML VIAL ONE (13:08)
[2022-06-18] MEDS ORDERED: PROPOFOL IV EMULSION 10 MG/ML 20 ML VIAL IV ONE (13:08)
[2022-06-18] MEDS ORDERED: MIDAZOLAM HCL 1 MG/ML 2ML VIAL ONE (13:08)
--- NOTE | 2022-06-18 13:24 | History & Physical Bridge Note ---
Date of Service June 18, 2022 History & Physical Bridge Note I have examined the patient, reviewed the History & Physical and in the interval since the performance of the History & Physical I have noted the following changes of clinical significance: no changes noted
[2022-06-18] MEDS ORDERED: KETAMINE 50 MG/5 ML SYRINGE ONE (14:13)
[2022-06-18] MEDS ORDERED: fentaNYL citrate 100 MCG/2 ML VIAL ONE (14:36)
[2022-06-18] MEDS ORDERED: GLYCOPYRROLATE 0.2 MG/ML VIAL ONE (16:24)
[2022-06-18] MEDS ORDERED: NEOSTIGMINE METHYLSULFATE 1 MG/ML 10ML VIAL ONE (16:24)
--- NOTE | 2022-06-18 16:37 | Operative Report ---
Post Operative Report Pre & Post Diagnosis Operation Date: 06/18/22 14:20 Pre-Op Diagnosis: Primary Osteoarthritis glenohumeral joint right Shoulder, chronic rotator cuff tear Post-Op Diagnosis: Primary Osteoarthritis glenohumeral joint right Shoulder, chronic rotator cuff tear with rotator cuff tendinopathy, biceps tendinopathy. I identified the patient and participated in the time-out.: Yes Procedure Operation Date: 06/18/22 14:20 Actual Procedures p Right Reverse Total Shoulder Arthroplasty(Right), biceps tenodesis- Alxeandr Ramirez MD Surgeon Alexandr Ramirez MD Geotechnical Intern Michael NOLEN Estimated Blood Loss 100 Findings Consistent with Post-Op Diagnosis Specimens Humeral head Drains 2 Hemovac Anesthesia Type General Regional Complications none Disposition Disposition: Recovery Room Indications 82-year-old female with chronic right shoulder pain and dysfunction. Patient had an MRI over a year ago which demonstrated tearing of the rotator cuff and arthritis and radiographs demonstrated progressive osteoarthritis of glenohumeral joint now with grade 4 glenohumeral joint osteoarthritis Description of Procedure The patient was taken to the operating room and anesthetized under regional block and general anesthetic. The patient was positioned on the operating table in a 30 beachchair position with a towel roll under the medial border of the right scapula. The arm was draped free to be able to manipulate the shoulder as needed. The right upper extremity was prepped and draped in usual sterile fashion. Exam demonstrated subacromial crepitation with good passive range of motion to 170 degrees of flexion and 70 degrees of external rotation and 100 degrees of abduction. An anterior deltopectoral approach was performed. A longitudinal incision was made in the deltopectoral interval. The skin was incised sharply. Subcutaneous flaps were elevated off the fascia. The cephalic vein was dissected out and retracted lateral with the deltoid. The clavipectoral fascia was divided at the lateral margin of the conjoined tendon and extended up to the CA ligament. The following findings were noted: Subscapularis tendon had intra-articular tendinopathy and partial tearing of the upper tendon tissue with some subluxation of the biceps but no complete tear of the subscapularis. There was a complete tear of the supraspinatus and infraspinatus with intact teres minor. The supraspinatus and infraspinatus retracted back toward the glenoid. Intra- articular biceps tendon had tendinopathy and there was tenosynovitis that extended down to the pectoralis tendon. The upper centimeter of the pectoralis was released for inferior exposure. The biceps tendon was tenodesed to the pectoralis tendon with #2 FiberWire. The proximal biceps was resected. The subscapularis tendon was taken down off the lesser tuberosity using a subperiosteal dissection. A #1 Vicryl traction suture was placed into the free end of the subscapularis tendon and capsule. The subscapular muscle fibers were split longitudinally at the level of the circumflex vessels. The circumflex vessels were identified and tied off with silk ties and divided laterally. A Kitner elevator was used to free up the inferior fibers of the subscapularis off of the capsule. The axillary nerve was identified with a tug test and protected with a blunt Lawrence retractor between the nerve and the capsule. The subscapularis tendon was then taken down off of the lesser tuberosity subperiosteally and subperiosteal dissection was performed along the neck of the humerus as the arm is gradually actually rotated exposing the humeral head. Humeral head had eburnated bone on the entire articular surface of the head. There was still a round shape to the head with some bone loss. Retractors were readjusted and the Eller elevator was used to assist in releasing the capsule of the neck of the humerus. The capsule was divided with Ward scissors down to the glenoid released off the anterior glenoid and the rotator interval was released to meet the capsular release and a 360 release of the subscapularis was accomplished. A Fukuda retractor was placed into the joint retracting the humeral head posterior. Glenoid findings demonstrated a central to superior wear pattern with superior bone loss due to proximal migration of the humerus and wear due to the chronic rotator cuff tear. There was eburnated bone with no articular cartilage remaining. The labrum and biceps tendon were resected. an anterior-inferior and posterior inferior capsular release were performed with electrocautery and a Eller elevator on bone with the axillary nerve protected inferiorly by the retractor. Attention was then taken to the humeral preparation. The cutting guide was placed into the humeral head. It was positioned at 20 of retroversion. Oscillating saw was used to resect the humeral head giving the cut above the level of the posterior rotator cuff insertion site. The humerus was then prepared for the stem. I used the ascend flex stem from [employer]. The sizing broaches were used followed by trial broaches up to a size 3 which had the appropriate fit and fill. The appropriate sized cut protector was placed. The humerus was then retracted posterior to the glenoid. The glenoid was sized for a 25 mm baseplate 15 degree wedge. The guide for the 15 degree wedge baseplate was placed with a wedge superior and the central guidepin was placed.. The reamer for the perform 15 degree full wedge baseplate was used. The reamer for the central boss was used. The depth gauge was used to measure for the central screw. The perform 25 mm full wedge 15 degree baseplate with the wedge directed superior was screwed into position. The base plate was transfixed with superior compression screw and and inferior and anterior and posterior locking screws with stable fixation. After irrigation the 36 standard glenoid sphere was impacted onto the baseplate and the screw was tightened. Attention was taken back to the humerus. The cut protector was removed and the plus or high offset humeral tray trial was assembled to the trial stem rotated appropriately to get bony coverage and then screwed in position. A trial reduction was performed. Soft tissues were too tight to reduce the +6, 36 trial. The trials were removed. I revised the humeral head cut removing about 3 more millimeters of bone and then had the downsized to a size 2 stem to accomplish this. +0 high offset trial tray and a +6, 36 trial insert were placed. I was able to reduce the implant with good stability and good range of motion and satisfactory soft tissue tension. The trials were removed. 3 drill holes are made into the harder bone in the bi cipital groove area and 3 #5 FiberWire sutures were placed transosseously. The canal was irrigated with pulsatile saline solution. The final component was assembled. The final component was [employer] 2B long PTC stem assembled to the plus or high offset tray with a 36, +6 reversed polyethylene insert. I put bone graft around the stem prior to fully seating it to enhance press-fit fixation of the downsized stem. This bone graft was harvested from the humeral head cut cancellous bone. The stem was then fully impacted into the humerus with a tight press-fit. It was reduced to the glenoid sphere. Stability was verified. Subscapularis was repaired with the #5 FiberWire sutures using Arturo-Bartolo suture technique. Lateral row soft tissue repair was performed with #2 FiberWire [id number] sutures. The pectoralis was repaired with #2 FiberWire [id number] sutures reinforcing the biceps tendon tenodesis. The arm was taken through a range of motion which demonstrated 140 degrees forward flexion 100 degrees abduction and and 45 degrees of external rotation without any tension on repair. The implant was stable through the range of motion tested. The wound was copiously irrigated. 2 Hemovac drains were placed. The deltopectoral interval was closed with [id number] #1 Vicryl sutures. The subcutaneous tissues were closed with 2-0 Vicryl sutures. The skin was closed with onel. Sterile dressings were applied and a shoulder immobilizer. Michael NOLEN my physician financial administrative assistant assisted in the procedure participating as advertising sales assistant. He performed soft tissue retraction instrument management suture management and performed the subcutaneous and skin closure and will participate in the postoperative care of the patient. I attest to the content of the Intraoperative Record and any orders documented therein. Any exceptions are noted below.
--- NOTE | 2022-06-18 17:16 | XRay Report ---
XR shoulder RT min 2V routine CLINICAL HISTORY: Post shoulder surgery COMPARISON STUDY: None. FINDINGS: Status post reverse right total shoulder arthroplasty. The hardware appears intact. No frac ture or dislocation. Skin onel and surgical drains are in place. Cervical spinal fusion hardware i s partially visualized. IMPRESSION: Status post reverse right total shoulder arthroplasty. No evidence for hardware complica tions. ACT 112: Negative or not required by law. Electronically signed by: North Contreras M.D. 06/18/2022 5:15 PM
[2022-06-18] MEDS ORDERED: MECLIZINE HCL 25 MG TAB PO PRN (17:39)
[2022-06-18] MEDS ORDERED: MAGNESIUM HYDROXIDE SUSP 30 ML UDC PO PRN (17:39)
[2022-06-18] MEDS ORDERED: NALOXONE HCL 0.4 MG/1 ML VIAL/CARP IV PRN (17:39)
[2022-06-18] MEDS ORDERED: SODIUM CHLORIDE 0.9% 1000ML 1,000 ML IV SCH (17:39)
[2022-06-18] MEDS ORDERED: oxyCODONE HCL IR 5 MG TAB (IMMEDIATE RELEASE) PO PRN (17:39)
[2022-06-18] MEDS ORDERED: LORazepam 0.5 MG TAB PO PRN (17:39)
[2022-06-18] MEDS ORDERED: bisacodyL 10 MG SUPP PR PRN (17:39)
[2022-06-18] MEDS ORDERED: METOCLOPRAMIDE HCL INJ 5 MG/ML 2 ML VIAL IV PRN (17:39)
[2022-06-18] MEDS ORDERED: HYDROmorphone INJ 0.5 MG/0.5 ML SYR IV PRN (17:39)
--- NOTE | 2022-06-18 18:28 | Hospitalist Consultation ---
Date of Consultation June 18, 2022 Assessment & Plan (1) Primary osteoarthritis, right shoulder: S/p right shoulder arthroplasty - DVT prophylaxis, pain control, activity recommendations per primary team Drain in place, serosanguineous material Neurovascularly intact, doing well postop CKD 3, without prior proteinuria/hematuria Baseline creatinine 1.01.44, preop creatinine 1.21 BMP in a.m. If hypertensive 06/18 may give amlodipine 5 mg x 1 Resume candesartan 16mg daily if creatinine at baseline 06/19 Hypertension Amlodipine, candesartan as above Polymyalgia rheumatica Follows with [facility] rheumatology Continue prednisone 5 mg daily Hypothyroidism Continue Synthroid 75 mcg daily GERD without esophagitis Continue PPI daily Anxiety/depression Continue sertraline 100 mg daily May use home lorazepam 0.5 mg daily for anxiety/panic if mentation is normal and is not hypotensive Hypovitaminosis D Continue vitamin D 2000 IU daily Suspected atelectasis Bibasilar crackles without hypoxia or difficulty breathing. No cough. No history of heart failure Encouraged incentive spirometry use at least hourly (2) PMR (polymyalgia rheumatica): (3) Chronic kidney disease, stage 3a: (4) Anxiety: (5) Hypothyroid: (6) Vitamin D deficiency: History of Present Illness Attending Physician: Alexandr Ramirez MD History of Present Illness Belinda is an 82-year-old female who presented to [facility] for scheduled right total arthroplasty with Dr. Ramirez which was completed 06/18/2022. We have been consulted for management of medical comorbidities. Belinda is seen at the bedside postop with her son and daughter present. She reports she feels well, her daughter reports she is doing well although a little bit with fatigue still since coming out of anesthesia. She is eating dinner comfortably at time of assessment. Denies pain. Reports she has sensation in her fingertips, somewhat diminished in the right fingertips but improving with time. She has no chest pain, chest pressure, shortness of breath, lightheadedness, dizziness. Overall she feels well. She reports she did take her candesartan this morning. Medical history reviewed, hypertension and CKD. Overall feels well and has no questions or concerns at bedside. Medical History: Reviewed Medications: Reviewed Surgical History: Reviewed Allergies: Reviewed Social History: reviewed Code Status: Full Allergies Allergy/AdvReac Type Severity Reaction Status Date / Time No Known Drug Allergies Allergy Verified 06/18/22 12:11 Home Medications Medication Instructions Recorded Confirmed Type cholecalciferol (vitamin D3) 50 2,000 units PO QAM 02/16/19 06/18/22 History mcg (2,000 unit) capsule loperamide-simethicone 2 mg-125 mg 2 tab PO Q3H PRN loose stool #30 04/05/19 06/18/22 Rx tablet (Imodium Multi-Symptom tabs Relief) meclizine 25 mg tablet 25 mg PO TID PRN dizziness #30 tabs 04/24/19 06/18/22 Rx clobetasol 0.05 % topical ointment 1 applic topical .COMPLEX #30 grams 03/03/22 06/18/22 Rx levothyroxine 75 mcg tablet 75 mcg PO QAM #90 tabs 03/31/22 06/18/22 Rx celecoxib 200 mg capsule 200 mg PO QAM #90 caps 04/14/22 06/18/22 Rx sertraline 50 mg tablet 100 mg PO QAM #180 tabs 04/16/22 06/18/22 Rx candesartan 16 mg tablet 16 mg PO QAM 04/27/22 06/18/22 History prednisone 5 mg tablet 5 mg PO QAM 04/27/22 06/18/22 History nitrofurantoin 100 mg PO Q12H 5 days #10 caps 05/15/22 06/18/22 Rx monohydrate/macrocrystals 100 mg capsule (Macrobid) lorazepam 0.5 mg tablet 0.5 mg PO DAILY PRN Anxiety #20 06/05/22 06/18/22 Rx tabs diclofenac sodium 1 % topical gel 2 g topical QID PRN pain #100 grams 06/09/22 06/18/22 Rx Patient History Medical History Acute kidney injury superimposed on chronic kidney disease Acute Lyme disease Anxiety Chronic diarrhea Controlled with immodium Chronic kidney disease, stage 3a Follows with Dr. Forde GERD (gastroesophageal reflux disease) Grief Loss of 09/2019 History of blood transfusion Remote hx in setting of miscarriage HSV-2 infection Hx, no current issues HTN (hypertension) Hypomagnesemia Hypothyroid Kidney stone PMR (polymyalgia rheumatica) Prednisone 5mg daily Primary osteoarthritis, right shoulder Sensorineural hearing loss (SNHL) of both ears SI joint arthritis Surgical History H/O colonoscopy H/O: hysterectomy History of arthroplasty of left shoulder Left TSA (05/03/19): Grade view 1, MAC#3, ETT 7 + PNB at [facility]. No issues noted per post-op anesthesia progress note. History of carpal tunnel release of both wrists History of cystocele S/P REPAIR History of ERCP History of esophagogastroduodenoscopy (EGD) History of lithotripsy History of neck surgery FUSION > ROM WNL History of rotator cuff surgery RIGHT/LEFT History of tooth extraction Hx of cataract surgery B/L Hx of cholecystectomy Hx of tonsillectomy Retinal wrinkling, right eye HX OF AND REPAIRED Family History Father Renal failure Cardiovascular disease (Premature) Acute myocardial infarction Diabetes Colon cancer Myocardial infarction Mother Hypertension Brother Acute myocardial infarction Obesity Malignant neoplasm of pancreas Myocardial infarction Sister Colon cancer Daughter Adult celiac disease Denies family history of Ovarian cancer Prostate cancer Crohn's disease Breast cancer Inflammatory bowel diseases (IBD) Social History Smoking Status: Never smoker Second Hand Exposure: No; Do You Dip or Chew Tobacco: No; Tobacco Cessation Education Requested by Patient: No Hx Alcohol Use: Yes Alcohol type: wine Alcohol Intake Frequency: Monthly or Less Hx Substance Use: No Preferred Language: Cameroonian Communication Ability: Effective Visual Impairment: No Limitations Hearing Ability: Normal Hi Lift Operator Required: No Beliefs That Will Affect Care: None marital status: Current Living Situation: Alone current occupational status: retired How many Children do You have: 2 Other Information That Helps Us Care for You: No Feels Safe at Home: Yes Safety Concerns: Feels Safe At This Time Childhood Exposure to Second-Hand Smoke: No Diet Comment: regular caffeine: Yes (diet coke) during the past year weight has: other Dental Care, Regularly: Yes Physical Activity Frequency: Daily Seatbelt Use: always Sunscreen Use: Yes Assistive Devices: None Review of Systems Review of Systems: All systems reviewed & are unremarkable except as noted in HPI & below Physical Exam Physical Exam: General: A&Ox3. NAD. Cooperative. HEENT: Atraumatic, normocephalic. Vision grossly intact, hearing grossly intact although somewhat hard of hearing without hearing aids in place Extremities: Right shoulder with postoperative dressing, drain in place. Draining serosanguineous material. Sensation of soft touch in fingertips intact bilaterally, slightly diminished on the right compared to the left. Radial pulse intact bilaterally. Pulm: Bibasilar crackles, no wheezes/rales symmetrical chest rise. No increase in work of breathing. No respiratory distress. Cardiac: RRR, -mrg. Radial pulses intact and symmetrical. Abdominal: Nontender, nondistended, soft. BS present. Results & Data Results & Data ([facility]) Vital Signs (Past 12 Hours) Vital Signs Temp Pulse Pulse Resp BP BP Pulse Ox 06/18/22 18:18 106 H 16 139/79 94 06/18/22 17:49 36.6 C 76 18 142/76 H 96 06/18/22 17:25 77 12 143/73 H 95 06/18/22 17:15 36.4 C L 86 15 153/76 H 96 06/18/22 17:05 76 15 148/76 H 99 06/18/22 16:55 81 22 149/89 H 99 06/18/22 16:45 36.2 C L 100 H 18 175/96 H 98 06/18/22 12:04 36.7 C 60 20 164/56 H 95 O2 Del Method O2 Flow Rate 06/18/22 18:18 Room Air 06/18/22 17:49 Room Air 06/18/22 17:25 Room Air 06/18/22 17:15 Oxymask 2 06/18/22 17:05 Oxymask 5 06/18/22 16:55 Oxymask 5 06/18/22 16:45 Oxymask 5 06/18/22 12:04 Room Air PG Care Time/CCT Total # of Minutes Spent Total Time Spent with Patient: Total time spent is greater than 50% in coordination of care (as documented) at patient's floor/unit and/or counseling patient: Coding Level of Care Code 71433 Inpt Consult Level 4 Diagnoses Primary osteoarthritis, right shoulder M19.011 PMR (polymyalgia rheumatica) M35.3 Chronic kidney disease, stage 3a N18.31 Anxiety F41.9 Hypothyroid E03.9 Vitamin D deficiency E55.9
[2022-06-18] MEDS ORDERED: LOPERAMIDE HCL 2 MG CAP PO PRN (18:29)
[2022-06-18] MEDS: DOCUSATE SODIUM 100 MG CAP PO SCH (20:39)
[2022-06-18] MEDS ORDERED: SENNA 8.6 MG TAB PO SCH (21:00)
[2022-06-18] MEDS: ACETAMINOPHEN 500 MG TAB PO SCH (22:27)
[2022-06-18] MEDS: ceFAZolin 1000MG 1,000 MG/7.5 ML SYR IV SCH (22:27)
[2022-06-19] MEDS: ACETAMINOPHEN 500 MG TAB PO SCH (06:07)
[2022-06-19] MEDS: ceFAZolin 1000MG 1,000 MG/7.5 ML SYR IV SCH (06:07)
[2022-06-19] MEDS ORDERED: LEVOTHYROXINE SODIUM 75 MCG TABLET PO SCH (06:30)
[2022-06-19 08:16] LABS: Basophils # (auto) 0.03 K/uL (0-0.2); Basophils % (auto) 0.2 %; Hematocrit (blood only) 29.9 % (34.1-44.9); Immature Granulocytes # (auto) 0.08 K/uL (0.00-0.02); Immature Granulocytes % (auto) 0.7 %; Lymphocytes # (auto) 1.19 K/uL (1.2-3.4); Lymphocytes % (auto) 9.8 %; Mean Corpuscular Hemoglobin 30.7 pg (25.0-34.0); Mean Corpuscular Hgb Conc 33.4 g/dL (32.0-36.0); Mean Corpuscular Volume 91.7 fL (80.0-100.0); Mean Platelet Volume 9.5 fL (9.4-12.3); Monocytes # (auto) 0.83 K/uL (0.24-0.82); Monocytes % (auto) 6.8 %; Neutrophils # (auto) 10.05 K/uL (1.4-6.5); Neutrophils % (auto) 82.5 %; Platelet Count 181 K/uL (130-400); RDW Coefficient of Variation 12.5 % (11.5-14.5); RDW Standard Deviation 41.8 fL (36.4-46.3); Red Blood Count 3.26 M/uL (3.93-5.22); White Blood Count 12.18 K/ul (4.8-10.8)
[2022-06-19] MEDS: DOCUSATE SODIUM 100 MG CAP PO SCH (08:16)
--- NOTE | 2022-06-19 08:17 | Orthopedic Progress Note ---
Date of Service June 19, 2022 Assessment & Plan (1) S/p reverse total shoulder arthroplasty: Plan: Postop day #1 right reverse total shoulder arthroplasty -PT/OT: No active motion of her shoulder. May do elbow/wrist/hand motion, shrugs, pendulums. No formal therapy for 2 weeks. -AM labs pending -Pain management as written -DVT prophylaxis: SCDs, teds -Discharge planning: Plan on discharge home today after PT. Admission and Anticipated Discharge Date Admission Date: June 18, 2022 Subjective Patient is postop day 1 right reverse total shoulder arthroplasty. She is doing well this morning. No pain currently. No other complaints. Denies chest pain, shortness breath, nausea/vomiting/diarrhea lightheadedness or dizziness Review of Systems Review of Systems: All systems reviewed & are unremarkable except as noted in Subjective Physical Exam Physical Exam: Right shoulder: Sling in place. Dressing is clean, dry, intact. Fingers are mobile with good electrician assistant strength. Distal neurovascular status and sensation intact. Constitutional: WD/WN, vitals as above Results & Data ([facility]) Vital Signs (Past 12 Hours) Vital Signs Temp Pulse Pulse Resp BP Pulse Ox O2 Del Method 06/19/22 07:52 36.8 C 61 17 120/60 97 Room Air 06/19/22 03:12 36.7 C 57 L 20 153/70 H 94 Room Air 06/18/22 20:30 Room Air 06/18/22 22:53 36.6 C 85 16 128/72 94 Room Air
[2022-06-19] MEDS ORDERED: CHOLECALCIFEROL 1,000 UNITS 25 MCG TAB PO SCH (09:00)
[2022-06-19] MEDS ORDERED: predniSONE 5 MG TAB PO SCH (09:00)
[2022-06-19] MEDS ORDERED: SERTRALINE HCL 100 MG TABLET PO SCH (09:00)
[2022-06-19] MEDS ORDERED: MULTIVITAMIN TAB PO SCH (09:00)
[2022-06-19 09:35] LABS: BUN Creatinine Ratio 16.5 (10-20); Calcium 8.6 mg/dl (8.5-10.1); Creatinine Clr Calc Pharmacy 25.3 ml/min; Est GFR (African American) 43.3 ml/min; Est GFR (Non-African American) 37.4 ml/min; Potassium 4.2 mmol/L (3.5-5.1)
--- NOTE | 2022-06-19 11:41 | Hospitalist Progress Note ---
Date of Service June 19, 2022 Assessment & Plan (1) Primary osteoarthritis, right shoulder: Plan: POD#1 S/p right shoulder arthroplasty - DVT prophylaxis, pain control, activity recommendations per primary team Drain in place, serosanguineous material Neurovascularly intact, doing well postop (2) PMR (polymyalgia rheumatica): Plan: Follows with [facility] rheumatology Continue prednisone 5 mg daily (3) Chronic kidney disease, stage 3a: Plan: Baseline creatinine 1.01.44, preop creatinine 1.21 BMP this AM indicates stable renal fxn Resume candesartan 16mg daily (4) Anxiety: Plan: Continue sertraline 100 mg daily May use home lorazepam 0.5 mg daily for anxiety/panic if mentation is normal and is not hypotensive (5) Hypothyroid: Plan: Continue Synthroid 75 mcg daily (6) Vitamin D deficiency: Plan: - Continue supplementation (7) HTN (hypertension): Plan: Amlodipine, candesartan as above Plan Patient is doing well post operatively. No recommendations at this time. Thank you for allowing us to participate in the care of your patient. She is medically stable for dc once cleared by primary orthopedic service. Will sign off but please contact if any acute needs should arise while patient remains in house. Plan d/w Dr. Amaya. Admission and Anticipated Discharge Date Admission Date: June 18, 2022 Subjective Patient is postop day 1 right reverse total shoulder arthroplasty. She is doing well this morning. No pain currently. No other complaints. Denies chest pain, shortness breath, nausea/vomiting/diarrhea lightheadedness or dizziness Review of Systems Review of Systems: All systems reviewed and are unremarkable except as noted in HPI and below. Denies fever, chills, fatigue, headache, nasal congestion, sore throat, cough, chest pain, shortness of breath, palpitations, orthopnea, PND, abdominal pain, n/v/d, constipation, dysuria, hematuria, frequency, back pain, joint pain or swelling, easy bruising or bleeding, skin lesions or rashes. Physical Exam Physical Exam: GENERAL: 82 yo Well-developed, well-nourished elderly WF. NAD. LUNGS: Clear to auscultation bilaterally. No W/R/R. CARDIOVASCULAR: Regular rate and rhythm. ABDOMEN: Soft, non-tender and non-distended. BS normoactive x 4 quad. EXTREMITIES: No edema. Non-tender. Peripheral pulses +2/4. R shoulder incision dressed. Dressing dry. NV intact. NEUROLOGIC: A&O x3. PSYCHIATRIC: Cooperative. Appropriate mood and affect. SKIN: Warm, dry, intact. No rashes or lesions. Results & Data Results & Data ([facility]) Vital Signs (Past 12 Hours) Vital Signs Temp Pulse Pulse Resp BP Pulse Ox O2 Del Method 06/19/22 07:52 36.8 C 61 17 120/60 97 Room Air 06/19/22 03:12 36.7 C 57 L 20 153/70 H 94 Room Air Laboratory Results 06/19/22 07:21 06/19/22 07:21 PG Care Time/CCT Total # of Minutes Spent Total Time Spent with Patient: Total time spent is greater than 50% in coordination of care (as documented) at patient's floor/unit and/or counseling patient: Coding Level of Care Code 83845 Subseq Hosp Care Lvl 2 Diagnoses Primary osteoarthritis, right shoulder M19.011 PMR (polymyalgia rheumatica) M35.3 Chronic kidney disease, stage 3a N18.31 Anxiety F41.9 Hypothyroid E03.9 Vitamin D deficiency E55.9 HTN (hypertension) I10 Hypertension type: essential hypertension (1) HTN (hypertension) Hypertension type: essential hypertension Qualified Code(s): I10 - Essential (primary) hypertension
--- NOTE | 2022-06-20 07:53 | Discharge Summary ---
Date of Service June 20, 2022 Admission HPI Per Admitting Provider 82-year-old female with past medical history significant for hypertension, hypothyroid, polymyalgia rheumatica, CKD who presents with ongoing right shoulder pain. She has failed conservative measures including injections and therapy. Pain is interfering with her daily activities. She would like to proceed with surgical intervention. Patient denies headaches, sweats, fevers, chills, double vision, blurred vision, cough, sore throat, dysphagia, chest pain, sob, wheezing, n/v/d/c, numbness, tingling, fatigue, urinary symptoms, mood disorders. ROS positive for right shoulder pain and stiffness. Admission Exam Per Admitting Provider Constitutional: well developed and well nourished; no acute distress Eyes: PERRL, conjunctivae normal, anicteric sclerae ENMT: external ear and nose normal, oropharynx normal Neck: trachea midline, no thyromegaly Respiratory: normal respiratory effort, lungs clear to auscultation Cardiovascular: RRR, no murmur, no edema Musculoskeletal: Right shoulder: Tenderness anterior lateral acromion, anterior glenoid. There is positive impingement signs. There is crepitation with range of motion at the subacromial space consistent with chronic rotator cuff disease. Weakness with strength testin/5 abduction, 4+/5 external rotation, 5/5 internal rotation. Active abduction to 90 degrees, forward flexion to 120 degrees, external rotation to 45 degrees. Skin: no rashes, warm and dry Neurologic: patellar DTR's 2+ bilat, sensation intact Psychiatric: A+Ox3, euthymic affect Principal Diagnosis Right shoulder osteoarthritis, rotator cuff arthropathy Discharge Exam Right shoulder: Sling in place. Dressing is clean, dry, intact. Fingers are mobile with good christmas bell ringer strength. Distal neurovascular status and sensation intact. Constitutional WD/WN, vitals as above Discharge Data Allergies Allergy/AdvReac Type Severity Reaction Status Date / Time No Known Drug Allergies Allergy Verified 06/18/22 12:11 Consultations 06/15/22 15:32 Consult Hospitalist Routine Procedures Performed Operation Date: 06/18/22 14:20 Actual Procedures p Right Reverse Total Shoulder Arthroplasty(Right) - Alexandr Ramirez MD Ordered Studies 06/18/22 05:00 US - OR guided needle placemen Routine Hospital Course (1) S/p reverse total shoulder arthroplasty: Postop day #1 right reverse total shoulder arthroplasty -PT/OT: No active motion of her shoulder. May do elbow/wrist/hand motion, shrugs, pendulums. No formal therapy for 2 weeks. -AM labs pending -Pain management as written -DVT prophylaxis: SCDs, teds -Discharge planning: Plan on discharge home today after PT. Lab Results 06/18/22 06/18/22 06/19/22 Range/Units 11:50 12:20 07:21 WBC 12.18 H (4.8-10.8) K/ul RBC 3.26 L (3.93-5.22) M/uL Hgb 10.0 L (12.0-16.0) g/dl Hct 29.9 L (34.1-44.9) % MCV 91.7 (80.0-100.0) fL MCH 30.7 (25.0-34.0) pg MCHC 33.4 (32.0-36.0) g/dL RDW Std Deviation 41.8 (36.4-46.3) fL RDW Coeff of Simba 12.5 (11.5-14.5) % Plt Count 181 (130-400) K/uL MPV 9.5 (9.4-12.3) fL Immature Gran % (Auto) 0.7 % Neut % (Auto) 82.5 % Lymph % (Auto) 9.8 % Treasure % (Auto) 6.8 % Eos % (Auto) 0.0 % Baso % (Auto) 0.2 % Neut # (Auto) 10.05 H (1.4-6.5) K/uL Lymph # (Auto) 1.19 L (1.2-3.4) K/uL Treasure # (Auto) 0.83 H (0.24-0.82) K/uL Eos # (Auto) 0.00 (0-0.50) K/uL Baso # (Auto) 0.03 (0-0.2) K/uL Immature Gran # (Auto) 0.08 H (0.00-0.02) K/uL Sodium (136-145) mmol/L Potassium (3.5-5.1) mmol/L Chloride (98-107) mmol/L Carbon Dioxide (21-32) mmol/L Anion Gap (3-11) BUN (6-23) mg/dl Creatinine (0.6-1.2) mg/dl Est Cr Clr Drug Dosing ml/min Est GFR ( Amer) ml/min Est GFR (Non-Af Amer) ml/min BUN/Creatinine Ratio (10-20) Glucose (70-99(Fasting)) mg/dl Calcium (8.5-10.1) mg/dl SARS-CoV-2, RNA, NAAT NEGATIVE (NEGATIVE) Blood Type B Negative Antibody Screen POSITIVE A Antibody Identification Anti-D Antibody ID Comment Crossmatch See Detail 06/19/22 Range/Units 07:21 WBC (4.8-10.8) K/ul RBC (3.93-5.22) M/uL Hgb (12.0-16.0) g/dl Hct (34.1-44.9) % MCV (80.0-100.0) fL MCH (25.0-34.0) pg MCHC (32.0-36.0) g/dL RDW Std Deviation (36.4-46.3) fL RDW Coeff of Simba (11.5-14.5) % Plt Count (130-400) K/uL MPV (9.4-12.3) fL Immature Gran % (Auto) % Neut % (Auto) % Lymph % (Auto) % Treasure % (Auto) % Eos % (Auto) % Baso % (Auto) % Neut # (Auto) (1.4-6.5) K/uL Lymph # (Auto) (1.2-3.4) K/uL Treasure # (Auto) (0.24-0.82) K/uL Eos # (Auto) (0-0.50) K/uL Baso # (Auto) (0-0.2) K/uL Immature Gran # (Auto) (0.00-0.02) K/uL Sodium 142 (136-145) mmol/L Potassium 4.2 (3.5-5.1) mmol/L Chloride 111 H (98-107) mmol/L Carbon Dioxide 24 (21-32) mmol/L Anion Gap 7 (3-11) BUN 22 (6-23) mg/dl Creatinine 1.33 H (0.6-1.2) mg/dl Est Cr Clr Drug Dosing 25.3 ml/min Est GFR ( Amer) 43.3 ml/min Est GFR (Non-Af Amer) 37.4 ml/min BUN/Creatinine Ratio 16.5 (10-20) Glucose 98 (70-99(Fasting)) mg/dl Calcium 8.6 (8.5-10.1) mg/dl SARS-CoV-2, RNA, NAAT (NEGATIVE) Blood Type Antibody Screen Antibody Identification Antibody ID Comment Crossmatch Total Time Total Time Spent Total Time Spent (In Minutes): 20 Discharge Plan Discharge Items Patient Disposition: Home - Self-Care Reason For Visit: Primary Osteoarthritis Right Shoulder Discharge Diagnosis: Right shoulder osteoarthritis Activity: Per Instructions section Non-emergency contact: Surgeon Call non-emergency contact if: you have any medication questions, your pain is not controlled, your pain is concerning for you, you have a fever, your temperature is above 101, your wound has increased redness and your wound has increased drainage Follow-up/Referrals: Del Segovia CRNP [Primary Care Provider] - 06/24/22 8:15 am Diet: Regular Addtl Attending Provider Instructions: ACTIVITY RECOMMENDATIONS: SELF CARE INSTRUCTIONS AFTER TOTAL SHOULDER ARTHROPLASTY REVERSE A. You may do daily exercises as taught in physical therapy while in hospital. No lifting with the operative arm. B. You are to wear your sling/immobilizer at all times EXCEPT when performing your daily exercises and for hygiene purposes. C. You may perform dry, daily dressing changes. Please keep your incision covered. You may shower 48 hours after surgery. Do not apply soap or any ointment/lotions directly over incision. Do not soak incision in bath tub/swimming pool. D. You may use ice as needed to operative shoulder. SPECIAL CARE INSTRUCTIONS: VERY IMPORTANT TO READ AND REVIEW A. There are a few signs you need to watch for after you are home. Call [facility] at [phone] if you experience any of the followin. Increased severe shoulder pain. Some pain is expected especially when you exercise. 2. Increased swelling in you shoulder or arm; pain or swelling in either upper extremity. 3. Any fluid drainage from the incision. 4. Shortness of breath or chest pain. B. Please call [facility] at [phone] if you have any questions or concerns about your operation or recovery. C. Call your physician if: 1. Temperature is greater than 101 degrees (F). 2. Pain is not relieved by prescribed pain medications. 3. Increase drainage or redness from incision. 4. Unanswered questions or concerns. FOLLOW UP VISIT: Please call [facility] at [phone] to schedule a follow up appointment with Dr. Ramirez or his PA in 12-14 days from your surgery date. Stand-Alone Forms: My [facility] [place], Smoking Cessation Medications and DC Order Prescriptions: New acetaminophen [Tylenol Extra Strength] 500 mg Tablet 1,000 mg PO Q8 Qty: 60 0RF tramadol 50 mg tablet 50 - 100 mg PO .Q4h-6h MDD 6 PRN (Reason: pain) Qty: 30 0RF Rx Instructions: Ongoing therapy, Dr. Ramirez supervising Continued levothyroxine 75 mcg tablet 75 mcg PO QAM Qty: 90 1RF sertraline 50 mg tablet 100 mg PO QAM Qty: 180 1RF lorazepam 0.5 mg tablet 0.5 mg PO DAILY PRN (Reason: Anxiety) Qty: 20 0RF Hold Instructions: trial of trazodone meclizine 25 mg tablet 25 mg PO TID PRN (Reason: dizziness) Qty: 30 0RF clobetasol 0.05 % ointment 1 applic topical .COMPLEX Qty: 30 3RF Rx Instructions: Apply a thin layer to affected skin two days in a row, then take 5 days off. cholecalciferol (vitamin D3) 2,000 unit capsule 2,000 units PO QAM Imodium Multi-Symptom Relief 2-125 mg tablet 2 tab PO Q3H PRN (Reason: loose stool) Qty: 30 0RF Rx Instructions: do not exceed 4 tabs in 24 hrs candesartan 16 mg tablet 16 mg PO QAM prednisone 5 mg Tablet 5 mg PO QAM Discontinued celecoxib 200 mg capsule 200 mg PO QAM Qty: 90 1RF nitrofurantoin monohyd/m-cryst [Macrobid] 100 mg capsule 100 mg PO Q12H 5 Days Qty: 10 0RF Rx Instructions: must administer with a meal/food diclofenac sodium 1 % gel 2 g TOP QID PRN (Reason: pain) Qty: 100 5RF Rx Instructions: apply to hip area Discharge Orders: Discharge Order (Routine); Ordered 06/19/22 Ordered By: Xiang Patterson Admission Data Admit Date/Time: 06/18/22 16:49 Attending Provider: Alexandr Ramirez Admit Provider: Alexandr Ramirez Primary Care Provider: Del Segovia Other Providers: Levar Estrada Weldon J. Other Interventions: Discharge Summary Assessment (RN) Last Done: 06/19/22 08:48
== END 2022-06-19 11:41 | disposition home or self-care (01) ==
LOC: ASU 11:35 → INTOOBSV 16:49 → 3E 16:49

== ENCOUNTER 2025-06-07 07:58 | Inpatient (IN) ==
--- NOTE | 2025-06-07 08:36 | Emergency Department Note ---
Impression & Plan Severe sepsis, Acute right flank pain, Acute UTI (urinary tract infection), Calculus of distal right ureter, Leukocytosis, Elevated lactic acid level, Hydronephrosis ED Provider Note HISTORY OF PRESENT ILLNESS: Patient is an 85-year-old female presenting with right sided flank pain. Patient reports that she woke up this morning at about 5 AM with significant sharp pain in her right mid posterior back. Patient reports that pain has continued throughout the morning. She had a couple episodes of dry heaving but has not vomited. She states this feels similar to when she has passed a kidney stone in the past. She denies any need for surgical interventions for her previous stones. She has a abdominal surgical history significant for cholecystectomy. Denies any fevers or chills. Denies any dysuria or hematuria, but does report she has been urinating frequently this morning. Denies any chest pain or shortness of breath. Patient has not taken anything for her pain this morning. ROS: as above PHYSICAL EXAM: Constitutional: Patient appears in mild distress. Patient is moving around frequently on the bed attempting to get comfortable. HENT: Head: Normocephalic and atraumatic. Eyes: EOMI, PERRL Mouth/Throat: Mucous membranes moist. Neck: Trachea midline. Neck supple. Cardiovascular: RRR, No murmurs, rubs or gallops. Intact distal pulses. Pulmonary/Chest: No respiratory distress. Breath sounds clear and equal bilaterally. No wheezes or rales. Abdominal: Abdomen soft, no tenderness, rebound or guarding. Back: No midline spinal tenderness, no paraspinal tenderness. Right CVA tenderness. Musculoskeletal: No edema, tenderness or deformity noted. Skin: Warm and dry. No rash, erythema, pallor or cyanosis Psychiatric: Appropriate mood and affect for situation. Neurological: Alert and keenly responsive. CN II-XII grossly intact, moving all extremities equally and fully. MDM: - Vitals signs showed hypertension - History obtained via patient. History as above. - Chronic conditions affecting care: GERD; hypothyroidism; HTN; CKD; depression - Differential diagnoses include, but are not limited to: UTI; pyelonephritis; ureteral stone; appendicitis; bowel obstruction; colitis - Order placed for continuous cardiac monitoring. At this time, monitor showed rate of 80 bpm with normal sinus rhythm, per my interpretation. - External medical records reviewed. Primary care visit note dated 05/23/2025 was reviewed. Patient was seen for removal of sutures and for a follow-up for her depression. - Laboratory workup interpreted by myself showed leukocytosis (WBC 19.99) with neutrophil predominance; CKD (Cr 1.33); stable electrolytes; normal lipase - UA showed evidence of infection. Given 2g IV rocephin - Patient given 500 cc NS, 4 mg IV zofran and 4 mg IV morphine in ER for symptomatic management. - CT abdomen/pelvis with IV contrast showed 4 mm distal right ureteral calculus with mild to moderate right hydronephrosis with moderate perinephric stranding. - Shortly after IV Rocephin administration, the patient started to have rigors. Blood cultures were obtained. Repeat temperature within normal limits. She then developed a rash on her anterior chest. 25 mg IV Benadryl was ordered. - Given an additional 1L NS in ER. Patient sepsis fluid volume calculation based on actual body weight and 1533.00 mL. - Discussed case with BUD for urology, Greta Escobar, at 10:40 am. She came to bedside to assess the patient and plan will be for urology to take her for a stent. - Discussion was had with case making machine operator about patient's case and need for admission - Hospitalist consulted for admission - [facility] and [facility] ASSESSMENT AND PLAN: Diagnosis: severe sepsis; acute UTI; calculus of distal right ureter; acute right flank pain; leukocytosis; elevated lactic acid level; hydronephrosis Plan: admit Past Med/Surg History Problem List (Updated 06/07/25 @ 16:20 by Fawn Giron MD) Hydronephrosis (Acute) Elevated lactic acid level (Acute) Leukocytosis (Acute) Calculus of distal right ureter (Acute) Acute UTI (urinary tract infection) (Acute) Acute right flank pain (Acute) Severe sepsis (Acute) Hydronephrosis, right Right ureteral stone HSV-2 infection Desquamative inflammatory vaginitis Osteopenia Cerebral microvascular disease Reduced sense of smell Dysfunction of right eustachian tube Depression Arthritis of left shoulder region Arthralgia Vaginal vault prolapse Incomplete bladder emptying Lichen sclerosus et atrophicus (Acute) Leukoplakia of skin Sensorineural hearing loss (SNHL) of both ears Vitamin D deficiency Chronic kidney disease, stage 3a Follows with Dr. Forde HTN (hypertension) Anxiety Retinal wrinkling, right eye HX OF AND REPAIRED Grief Loss of 09/2019 Carpal tunnel syndrome (Chronic) RESOLVED Hypothyroid (Chronic) GERD (gastroesophageal reflux disease) (Chronic) PMR (polymyalgia rheumatica) (Chronic) Prednisone 5mg daily Medical History History of fall Nasal septal deviation History of blood transfusion Acute kidney injury superimposed on chronic kidney disease Acute Lyme disease Hypomagnesemia SI joint arthritis Chronic diarrhea Kidney stone Surgical History S/p reverse total shoulder arthroplasty History of esophagogastroduodenoscopy (EGD) History of tooth extraction History of lithotripsy History of arthroplasty of left shoulder History of rotator cuff surgery History of neck surgery History of carpal tunnel release of both wrists History of cystocele Hx of tonsillectomy History of ERCP H/O colonoscopy Hx of cholecystectomy Hx of cataract surgery H/O: hysterectomy Family History Father Renal failure Cardiovascular disease (Premature) Acute myocardial infarction Diabetes Colon cancer Myocardial infarction Mother Hypertension Brother Acute myocardial infarction Obesity Malignant neoplasm of pancreas Myocardial infarction Sister Colon cancer Daughter Adult celiac disease Denies family history of Ovarian cancer Prostate cancer Crohn's disease Breast cancer Inflammatory bowel diseases (IBD) Social History Smoking Status: Never smoker Second Hand Exposure: No; Do You Dip or Chew Tobacco: No; Hx Alcohol Use: No Hx Substance Use: No Preferred Language: Serbian Communication Ability: Effective Visual Impairment: No Limitations Hearing Ability: Normal Electronic Repair Troubleshooter Required: No Beliefs That Will Affect Care: None marital status: Current Living Situation: Alone current occupational status: retired How many Children do You have: 2 Other Information That Helps Us Care for You: No Feels Safe at Home: Yes Safety Concerns: Feels Safe At This Time Childhood Exposure to Second-Hand Smoke: No Diet: regular Diet Comment: regular caffeine: Yes (diet coke) during the past year weight has: other Dental Care, Regularly: Yes Physical Activity Frequency: Daily Seatbelt Use: always Sunscreen Use: Yes Assistive Devices: Hearing Aid - Bilateral Allergies Allergies Allergy/AdvReac Type Severity Reaction Status Date / Time cefdinir AdvReac Severe Diarrhea Verified 06/07/25 12:23 duloxetine AdvReac Intermediate Diarrhea Verified 06/07/25 12:23 sertraline AdvReac Mild Diarrhea Verified 06/07/25 12:23 Home Meds Home Medications Medication Instructions Recorded Confirmed cholecalciferol (vitamin D3) 50 2,000 units PO QAM 02/16/19 06/07/25 mcg (2,000 unit) capsule acetaminophen 500 mg tablet 1,000 mg PO Q8 PRN Pain 10/27/22 06/07/25 (Tylenol Extra Strength) baclofen 5 mg tablet 5 mg PO DAILY PRN Muscle Spasm 07/25/24 06/07/25 Previous Rx's Medication Instructions Recorded loperamide 2 mg-simethicone 125 mg 2 tab PO Q3H PRN loose stool #30 04/05/19 tablet (Imodium Multi-Symptom tabs Relief) meclizine 25 mg tablet 25 mg PO TID PRN dizziness #30 tabs 04/24/19 fluticasone propionate 50 2 spray intranasal DAILY #48 mL 03/17/23 mcg/actuation nasal spray,suspension alendronate 70 mg tablet (Fosamax) 70 mg PO .Weekly #12 tabs 11/29/24 clobetasol 0.05 % topical ointment See Rx Instructions .Route 02/21/25 .COMPLEX #30 grams levothyroxine 75 mcg tablet 75 mcg PO DAILY #90 tabs 02/21/25 lorazepam 0.5 mg tablet 0.5 mg PO DAILY PRN Anxiety #20 02/22/25 tabs candesartan 32 mg tablet 32 mg PO QAM #90 tabs 04/12/25 prednisone 5 mg tablet 5 mg PO QAM #30 tabs 05/16/25 escitalopram oxalate 5 mg tablet 5 mg PO DAILY #90 tabs 06/04/25 Results & Data (ED) Vital Signs Vital Signs - 24 hr 06/07/25 08:02 06/07/25 08:11 06/07/25 08:16 Temperature 36.9 C Temperature Source Temporal Artery Scan Pulse Rate 71 60 Pulse Rate from SpO2 Sensor Respiratory Rate 18 Blood Pressure 166/80 H 122/95 Blood Pressure Mean 108 99 Pulse Oximetry 98 Oxygen Delivery Method Room Air Sepsis Recent Fever Within 48 Hours No Sepsis New/Unexplained Change in Mental Status N/A Sepsis Action Taken by Nursing No Action Required 06/07/25 08:20 06/07/25 08:24 06/07/25 08:30 Temperature Temperature Source Pulse Rate 64 72 Pulse Rate from SpO2 Sensor 62 72 Respiratory Rate 17 19 Blood Pressure Blood Pressure Mean Pulse Oximetry 97 96 95 Oxygen Delivery Method Room Air Sepsis Recent Fever Within 48 Hours Sepsis New/Unexplained Change in Mental Status Sepsis Action Taken by Nursing 06/07/25 08:31 06/07/25 08:36 06/07/25 09:00 Temperature Temperature Source Pulse Rate 70 Pulse Rate from SpO2 Sensor 66 Respiratory Rate 22 Blood Pressure 159/85 H 140/68 Blood Pressure Mean 105 96 Pulse Oximetry 97 Oxygen Delivery Method Sepsis Recent Fever Within 48 Hours Sepsis New/Unexplained Change in Mental Status Sepsis Action Taken by Nursing 06/07/25 09:00 Temperature Temperature Source Pulse Rate 63 Pulse Rate from SpO2 Sensor Respiratory Rate 15 Blood Pressure Blood Pressure Mean Pulse Oximetry Oxygen Delivery Method Sepsis Recent Fever Within 48 Hours Sepsis New/Unexplained Change in Mental Status Sepsis Action Taken by Nursing Laboratory Data 06/07/25 08:18 06/07/25 08:18 Lab Results 06/07/25 06/07/25 Range/Units 08:18 09:53 WBC 19.99 H (4.8-10.8) K/ul RBC 4.82 (4.20-5.40) M/uL Hgb 14.4 (12.0-16.0) g/dl Hct 44.9 (37.0-47.0) % MCV 93.2 (80.0-100.0) fL MCH 29.9 (25.0-34.0) pg MCHC 32.1 (32.0-36.0) g/dL RDW Std Deviation 45.2 (36.4-46.3) fL RDW Coeff of Simba 13.4 (11.5-14.5) % Plt Count 356 (130-400) K/uL MPV 9.4 (9.4-12.4) fL Immature Gran % (Auto) 1.4 % Neut % (Auto) 78.0 % Lymph % (Auto) 10.6 % Kendall % (Auto) 9.3 % Eos % (Auto) 0.4 % Baso % (Auto) 0.3 % Neut # (Auto) 15.61 H (1.40-6.50) K/uL Lymph # (Auto) 2.11 (1.20-3.40) K/uL Kendall # (Auto) 1.86 H (0.11-0.59) K/uL Eos # (Auto) 0.08 (0.00-0.50) K/uL Baso # (Auto) 0.05 (0.00-0.20) K/uL Immature Gran # (Auto) 0.28 H (0.01-0.20) K/uL Sodium 142 (136-145) mmol/L Potassium 4.6 (3.5-5.1) mmol/L Chloride 108 H (98-107) mmol/L Carbon Dioxide 25 (21-32) mmol/L Anion Gap 9 (3-11) BUN 31 H (6-23) mg/dl Creatinine 1.33 H (0.6-1.2) mg/dl Est Cr Clr Drug Dosing Not Reportable eGFR 39.45 BUN/Creatinine Ratio 23.3 H (10-20) Glucose 114 H (70-99(Fasting)) mg/dl Lactate 3.4 H* (0.4-2.0) mmol/L Calcium 9.8 (8.6-10.3) mg/dl Total Bilirubin 0.7 (0.2-1.0) mg/dl AST 25 (13-39) U/L ALT 29 (7-52) U/L Alkaline Phosphatase 90 (34-104) U/L Total Protein 7.1 (6.0-8.3) gm/dl Albumin 3.7 (3.4-5.0) gm/dl Globulin 3.4 (2.5-4.0) gm/dl Albumin/Globulin Ratio 1.1 (0.9-2) Lipase 79 (11-82) U/L Procalcitonin 0.15 (0-0.5) ng/ml Administered Medications Sodium Chloride (Nss) 1,000 mls @ 15 mls/hr IV .Q24H LOREN Stop: 06/10/25 12:29 Last Admin: 06/07/25 12:25 Dose: 15 mls/hr Documented By: MIKI Discontinued Medications Diphenhydramine HCl (Diphenhydramine 50 Mg/Ml Vial) 25 mg IV NOW STA Stop: 06/07/25 11:10 Last Admin: 06/07/25 11:12 Dose: 25 mg Documented By: SHAMA Hydrocortisone Sodium Succinate (Hydrocortisone Sod Succinate 100 Mg/2 Ml Vial) 50 mg IV NOW STA Stop: 06/07/25 11:42 Last Admin: 06/07/25 12:25 Dose: 50 mg Documented By: MIKI Sodium Chloride (Nss) 500 mls @ 999 mls/hr IV .Q31M ONE Stop: 06/07/25 09:02 Last Infusion: 06/07/25 14:33 Dose: Infused Documented By: Admin: 06/07/25 08:40 Dose: 999 mls/hr Documented By: Ceftriaxone Sodium (Rocephin) 2,000 mg in 50 mls @ 100 mls/hr IV NOW STA Stop: 06/07/25 09:36 Last Infusion: 06/07/25 10:52 Dose: Infused Documented By: Admin: 06/07/25 10:26 Dose: 100 mls/hr Documented By: TNK Sodium Chloride (Nss) 1,000 mls @ 999 mls/hr IV .Q1H1M ONE Stop: 06/07/25 11:32 Last Infusion: 06/07/25 14:33 Dose: Infused Documented By: Admin: 06/07/25 10:51 Dose: 999 mls/hr Documented By: TNK Pantoprazole Sodium (Protonix) 40 mg in 10 mls @ 5 mls/min IV NOW STA Stop: 06/07/25 11:50 Last Admin: 06/07/25 15:11 Dose: Not Given Documented By: AM Sodium Chloride (Nss) 1,000 mls @ 999 mls/hr IV .Q1H1M ONE Stop: 06/07/25 12:59 Last Admin: 06/07/25 14:42 Dose: Not Given Documented By: CRW Lactated Ringer's (Lr) 1,000 mls @ 999 mls/hr IV .Q1H1M ONE Stop: 06/07/25 15:37 Last Infusion: 06/07/25 16:05 Dose: Infused Documented By: Admin: 06/07/25 14:54 Dose: 999 mls/hr Documented By: CRW Pantoprazole Sodium (Protonix) 40 mg in 10 mls @ 5 mls/min IV NOW ONE Stop: 06/07/25 14:40 Last Admin: 06/07/25 15:11 Dose: 5 mls/min Documented By: AM Ioversol (Optiray 320 100ml) 94 ml IV ONCE ONE Stop: 06/07/25 09:22 Last Admin: 06/07/25 09:23 Dose: 94 ml Documented By: JANET Morphine Sulfate (Morphine Sulfate 4 Mg/Ml 1 Ml Carp\Vial) 4 mg IV NOW STA Stop: 06/07/25 08:33 Last Admin: 06/07/25 08:39 Dose: 4 mg Documented By: MSG Morphine Sulfate (Morphine Sulfate 4 Mg/Ml 1 Ml Carp\Vial) 4 mg IV NOW STA Stop: 06/07/25 10:34 Last Admin: 06/07/25 14:41 Dose: Not Given Documented By: PRIYA Ondansetron HCl (Ondansetron Inj 2 Mg/Ml 2 Ml Vial) 4 mg IV NOW STA Stop: 06/07/25 08:33 Last Admin: 06/07/25 08:39 Dose: 4 mg Documented By: Imaging Data Radiologist's Impression: Abdomen/Pelvis CT 06/07/25 08:32 CT SCAN OF THE ABDOMEN AND PELVIS WITH IV CONTRAST CLINICAL HISTORY: Right flank pain and nausea. COMPARISON STUDY: CT of the abdomen and pelvis October 05, 2013. Renal ultrasound August 29, 2021. TECHNIQUE: Following the IV administration of 94 cc of Optiray 320, CT scan of the abdomen and pelvis is performed from the lung bases to the proximal femora. Images are reviewed in the axial, sagittal, and coronal planes. IV contrast was administered without complication. A dose lowering technique was utilized adhering to the principles of ALARA. CT DOSE: 338.45 mGy.cm FINDINGS: Visualized lung bases are unremarkable. There is no pneumatosis, free air or portal venous gas. Pneumobilia is noted status post cholecystectomy. There is no biliary ductal dilatation. A 1.3 cm left adrenal nodule is unchanged. This favors an adenoma. Right adrenal gland and spleen are unremarkable. A few small cystic lesions within the pancreas are present. The largest is a 1.1 cm focus within the pancreatic neck on image 87. There is no pancreatic ductal dilatation. There is no peripancreatic inflammation. A 4 mm distal right ureteral calculus results in mild to moderate right hydronephrosis with moderate perinephric fluid. No additional urinary calculi are identified on contrast enhanced exam. Subcentimeter bilateral renal lesions are too small to characterize but favor cysts. There is no evidence for a bowel obstruction. There is no lymphadenopathy. Colonic diverticulosis is present. There is no evidence for acute diverticulitis. IMPRESSION: 1. 4 mm distal right ureteral calculus results in mild to moderate right hydronephrosis with moderate perinephric fluid. 2. A few small cystic lesions within the pancreatic neck which measure up to 1.1 cm. 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 Follow-up pancreatic protocol CT or MRI in 6 months to ensure stability is recommended. ACT 112: Negative or not required by law. Electronically signed by: Orlin Hooper M.D. 06/07/2025 9:52 AM Discharge Plan Visit Data Chief Complaint: Back Injury/Pain Stated Complaint: R SIDED BACK PAIN ED Provider: Fawn Giron Discharge Problem: Severe sepsis, Acute right flank pain, Acute UTI (urinary tract infection), Calculus of distal right ureter, Leukocytosis, Elevated lactic acid level, Hydronephrosis Patient Disposition: Admitted As Inpatient Condition: Serious Discharge Instructions Interventions: ED Discharge Assessment Last Done: 06/07/25 12:05
[2025-06-07] MEDS: MoRPHine SULFATE 4 MG/ML 1 ML CARP\\VIAL IV STA ×2 (08:39→14:41)
[2025-06-07] MEDS: ONDANSETRON INJ 2 MG/ML 2 ML VIAL IV STA (08:39)
[2025-06-07] MEDS: SODIUM CHLORIDE 0.9% 500 ML IV ONE (08:40)
[2025-06-07 08:45] LABS: Hematocrit (blood only) 44.9 % (37.0-47.0); Hemoglobin 14.4 g/dl (12.0-16.0); Immature Granulocytes # (auto) 0.28 K/uL (0.01-0.20); Immature Granulocytes % (auto) 1.4 %; Mean Corpuscular Hemoglobin 29.9 pg (25.0-34.0); Mean Corpuscular Volume 93.2 fL (80.0-100.0); Platelet Count 356 K/uL (130-400); RDW Standard Deviation 45.2 fL (36.4-46.3); Red Blood Count 4.82 M/uL (4.20-5.40); White Blood Count 19.99 K/ul (4.8-10.8)
[2025-06-07 08:53] LABS: Appearance Urine Clear (Clear); Bacteria Urine Automated 4+ (None Seen); Cast Urine Automated 0-2 /lpf (0-2); Epithelial Cell Urine Auto 0-2 /hpf (0-2); Glucose Urine UA Negative (Negative); RBC Urine Automated >20 /hpf (0-2); WBC Urine Automated 21-50 /hpf (0-5)
[2025-06-07 08:59] LABS: Alanine Aminotransferase 29 U/L (7-52); Albumin Globulin Ratio 1.1 (0.9-2); Albumin Level 3.7 gm/dl (3.4-5.0); Alkaline Phosphatase 90 U/L (34-104); Anion Gap 9 (3-11); Bilirubin,Total 0.7 mg/dl (0.2-1.0); Blood Urea Nitrogen 31 mg/dl (6-23); Calcium 9.8 mg/dl (8.6-10.3); Carbon Dioxide 25 mmol/L (21-32); Chloride 108 mmol/L (98-107); Globulin 3.4 gm/dl (2.5-4.0); Glucose 114 mg/dl (70-99(Fasting)); Lipase 79 U/L (11-82); Potassium 4.6 mmol/L (3.5-5.1); Sodium 142 mmol/L (136-145); Total Protein 7.1 gm/dl (6.0-8.3)
[2025-06-07] MEDS: OPTIRAY 320 100ml IV ONE (09:23)
--- NOTE | 2025-06-07 09:54 | CT Scan Report ---
CT SCAN OF THE ABDOMEN AND PELVIS WITH IV CONTRAST CLINICAL HISTORY: Right flank pain and nausea. COMPARISON STUDY: CT of the abdomen and pelvis October 05, 2013. Renal ultrasound August 29, 2021. TECHNIQUE: Following the IV administration of 94 cc of Optiray 320, CT scan of the abdomen and pelvi s is performed from the lung bases to the proximal femora. Images are reviewed in the axial, sagittal , and coronal planes. IV contrast was administered without complication. A dose lowering technique wa s utilized adhering to the principles of ALARA. CT DOSE: 338.45 mGy.cm FINDINGS: Visualized lung bases are unremarkable. There is no pneumatosis, free air or portal venous gas. Pneumobilia is noted status post cholecystectomy. There is no biliary ductal dilatation. A 1.3 c m left adrenal nodule is unchanged. This favors an adenoma. Right adrenal gland and spleen are unrema rkable. A few small cystic lesions within the pancreas are present. The largest is a 1.1 cm focus wit hin the pancreatic neck on image 87. There is no pancreatic ductal dilatation. There is no peripancre atic inflammation. A 4 mm distal right ureteral calculus results in mild to moderate right hydronephr osis with moderate perinephric fluid. No additional urinary calculi are identified on contrast enhanc ed exam. Subcentimeter bilateral renal lesions are too small to characterize but favor cysts. There i s no evidence for a bowel obstruction. There is no lymphadenopathy. Colonic diverticulosis is present . There is no evidence for acute diverticulitis. IMPRESSION: 1. 4 mm distal right ureteral calculus results in mild to moderate right hydronephrosis with moderate perinephric fluid. 2. A few small cystic lesions within the pancreatic neck which measure up to 1.1 cm. 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 Follow-up pancreatic protocol CT or MRI in 6 months to ensure stability is recommended. ACT 112: Negative or not required by law. Electronically signed by: Orlin Hooper M.D. 06/07/2025 9:52 AM
[2025-06-07] MEDS: cefTRIAXone SODIUM 2,000 MG/50 ML BAG IV STA (10:26)
[2025-06-07] MEDS: SODIUM CHLORIDE 0.9% 1,000 ML IV ONE ×2 (10:51→14:42)
[2025-06-07] MEDS: diphenhydrAMINE 50 MG/ML VIAL IV STA (11:12)
--- NOTE | 2025-06-07 11:18 | History & Physical Report ---
Date of Service June 07, 2025 Assessment & Plan (1) Hydronephrosis: (2) Elevated lactic acid level: (3) Leukocytosis: (4) Calculus of distal right ureter: (5) Acute UTI (urinary tract infection): (6) Severe sepsis: (7) HTN (hypertension): (8) GERD (gastroesophageal reflux disease): (9) PMR (polymyalgia rheumatica): (10) Hypothyroid: Plan 85 year old female presents to the ER with right flank pain #Sepsis / UTI / Ureterolithiasis Meets SIRS criteria on admission with WBC and tachycardia although this was after she had a fall in the ER trying to get off the toilet Second lactate I believe was not drawn correctly (taken after prolonged tourni quet after blood cultures), will repeat post operatively, irregardless 1.5L NSS given meets 30ml/kg ideal body weight (1299ml) Ceftriaxone given in the ER but possible maculopapular rash occurred after this with rigors - IV diphenhydramine given and no rash appears at time of admission - recommend follow up with allergy Switch antibiotics tomorrow due to concern for allergy, previously tolerated c iprofloxacin Recommend stress dose steroids perioperatively due to chronic prednisone 5mg daily use for PMR, give 50mg IV now, will dose further dosing post operatively NPO, discussed with urology BUD and planning to OR for ureteral stent momentarily Stress dose hydrocortisone 50mg IV q6h perioperatively due to chronic prednisone use but can wean over the next day #Possible allergic reaction to ceftriaxone Follow up with allergy as outpatient #GERD Worse over the last week Start pantoprazole #Hypertension Hold candesartan #Hypothyroidism TSH low in January, will repeat with AM labs Continue levothyroxine 75 mcg PO daily #Polymyalgia rheumatica Continue prednisone 5mg PO daily VTE Prophylaxis - Heparin 5000 units SQ BID Disposition - admit to PCU Admission and Anticipated Discharge Date Admission Date: June 07, 2025 History of Present Illness Chief Complaint: Right flank pain Primary Care Provider: CAITY Wyman Belinda Saucedo is an 85 year old female who presents to the ER with right flank pain that started suddenly this morning around 5am. Sharp pain, non radiating. Associated nausea but no vomiting. Busy similar to her last kidney stone but she reports this was many years ago in the 1980s and passed without intervention. Her daughter has also noticed she has been off this last week, sleeping more during the day and increasingly fatigued. No specific urine complaints. No fever or chills. Last ate and drank last night around 7-7:30pm. She did not take her morning medications. Allergies Allergy/AdvReac Type Severity Reaction Status Date / Time cefdinir AdvReac Severe Diarrhea Verified 06/07/25 12:23 duloxetine AdvReac Intermediate Diarrhea Verified 06/07/25 12:23 sertraline AdvReac Mild Diarrhea Verified 06/07/25 12:23 Home Medications Medication Instructions Recorded Confirmed Type cholecalciferol (vitamin D3) 50 2,000 units PO QAM 02/16/19 06/07/25 History mcg (2,000 unit) capsule loperamide 2 mg-simethicone 125 mg 2 tab PO Q3H PRN loose stool #30 04/05/19 06/07/25 Rx tablet (Imodium Multi-Symptom tabs Relief) meclizine 25 mg tablet 25 mg PO TID PRN dizziness #30 tabs 04/24/19 06/07/25 Rx acetaminophen 500 mg tablet 1,000 mg PO Q8 PRN Pain 10/27/22 06/07/25 History (Tylenol Extra Strength) fluticasone propionate 50 2 spray intranasal DAILY #48 mL 03/17/23 06/07/25 Rx mcg/actuation nasal spray,suspension baclofen 5 mg tablet 5 mg PO DAILY PRN Muscle Spasm 07/25/24 06/07/25 History alendronate 70 mg tablet (Fosamax) 70 mg PO .Weekly #12 tabs 11/29/24 06/07/25 Rx clobetasol 0.05 % topical ointment See Rx Instructions .Route 02/21/25 06/07/25 Rx .COMPLEX #30 grams levothyroxine 75 mcg tablet 75 mcg PO DAILY #90 tabs 02/21/25 06/07/25 Rx lorazepam 0.5 mg tablet 0.5 mg PO DAILY PRN Anxiety #20 02/22/25 06/07/25 Rx tabs candesartan 32 mg tablet 32 mg PO QAM #90 tabs 04/12/25 06/07/25 Rx prednisone 5 mg tablet 5 mg PO QAM #30 tabs 05/16/25 06/07/25 Rx escitalopram oxalate 5 mg tablet 5 mg PO DAILY #90 tabs 06/04/25 06/07/25 Rx Past Med/Surg History Problem List (Updated 06/07/25 @ 16:20 by Fawn Giron MD) Hydronephrosis (Acute) Elevated lactic acid level (Acute) Leukocytosis (Acute) Calculus of distal right ureter (Acute) Acute UTI (urinary tract infection) (Acute) Acute right flank pain (Acute) Severe sepsis (Acute) Hydronephrosis, right Right ureteral stone HSV-2 infection Desquamative inflammatory vaginitis Osteopenia Cerebral microvascular disease Reduced sense of smell Dysfunction of right eustachian tube Depression Arthritis of left shoulder region Arthralgia Vaginal vault prolapse Incomplete bladder emptying Lichen sclerosus et atrophicus (Acute) Leukoplakia of skin Sensorineural hearing loss (SNHL) of both ears Vitamin D deficiency Chronic kidney disease, stage 3a Follows with Dr. Forde HTN (hypertension) Anxiety Retinal wrinkling, right eye HX OF AND REPAIRED Grief Loss of 09/2019 Carpal tunnel syndrome (Chronic) RESOLVED Hypothyroid (Chronic) GERD (gastroesophageal reflux disease) (Chronic) PMR (polymyalgia rheumatica) (Chronic) Prednisone 5mg daily Medical History History of fall Nasal septal deviation History of blood transfusion Acute kidney injury superimposed on chronic kidney disease Acute Lyme disease Hypomagnesemia SI joint arthritis Chronic diarrhea Kidney stone Surgical History S/p reverse total shoulder arthroplasty History of esophagogastroduodenoscopy (EGD) History of tooth extraction History of lithotripsy History of arthroplasty of left shoulder History of rotator cuff surgery History of neck surgery History of carpal tunnel release of both wrists History of cystocele Hx of tonsillectomy History of ERCP H/O colonoscopy Hx of cholecystectomy Hx of cataract surgery H/O: hysterectomy Family History Father Renal failure Cardiovascular disease (Premature) Acute myocardial infarction Diabetes Colon cancer Myocardial infarction Mother Hypertension Brother Acute myocardial infarction Obesity Malignant neoplasm of pancreas Myocardial infarction Sister Colon cancer Daughter Adult celiac disease Denies family history of Ovarian cancer Prostate cancer Crohn's disease Breast cancer Inflammatory bowel diseases (IBD) Social History Smoking Status: Never smoker Second Hand Exposure: No; Do You Dip or Chew Tobacco: No; Hx Alcohol Use: No Hx Substance Use: No Preferred Language: Lao Communication Ability: Effective Visual Impairment: No Limitations Hearing Ability: Normal Purchasing And Claims Supervisor Required: No Beliefs That Will Affect Care: None marital status: Current Living Situation: Alone current occupational status: retired How many Children do You have: 2 Other Information That Helps Us Care for You: No Feels Safe at Home: Yes Safety Concerns: Feels Safe At This Time Childhood Exposure to Second-Hand Smoke: No Diet: regular Diet Comment: regular caffeine: Yes (diet coke) during the past year weight has: other Dental Care, Regularly: Yes Physical Activity Frequency: Daily Seatbelt Use: always Sunscreen Use: Yes Assistive Devices: Hearing Aid - Bilateral Review of Systems Review of Systems: All systems reviewed & are unremarkable except as noted in HPI & below reflux worse for the last week Physical Exam Constitutional: WD/WN, vitals as above ENMT: external ear and nose normal, oropharynx normal Respiratory: normal respiratory effort, lungs clear to auscultation Cardiovascular: RRR, no murmur, no edema Gastrointestinal (Abdomen): Inspection/Auscultation: abdomen normal to inspection; abdomen not distended Percussion/Palpation: + abdomen tender (right sided) and abdomen soft Genitourinary: + CVA tenderness (right) Results & Data Results & Data Vital Signs (Past 12 Hours) Vital Signs Temp Pulse Resp BP Pulse Ox O2 Del Method 06/07/25 09:00 63 15 06/07/25 09:00 140/68 06/07/25 08:36 70 22 97 06/07/25 08:31 159/85 H 06/07/25 08:30 72 19 95 06/07/25 08:24 64 17 96 06/07/25 08:20 97 Room Air 06/07/25 08:16 60 06/07/25 08:11 122/95 06/07/25 08:02 36.9 C 71 18 166/80 H 98 Room Air Laboratory Results Abnormal lab results 06/07/25 06/07/25 06/07/25 Range/Units 08:18 09:53 Unknown WBC 19.99 H (4.8-10.8) K/ul Neut # (Auto) 15.61 H (1.40-6.50) K/uL [place] # (Auto) 1.86 H (0.11-0.59) K/uL Immature Gran # (Auto) 0.28 H (0.01-0.20) K/uL Chloride 108 H (98-107) mmol/L BUN 31 H (6-23) mg/dl Creatinine 1.33 H (0.6-1.2) mg/dl BUN/Creatinine Ratio 23.3 H (10-20) Glucose 114 H (70-99(Fasting)) mg/dl Lactate 3.4 H* (0.4-2.0) mmol/L Urine Blood 2+ H (Negative) Urine Nitrite Positive A (Negative) Ur Leukocyte Esterase 1+ H (Negative) Urine WBC (Auto) 21-50 H (0-5) /hpf Urine RBC (Auto) >20 H (0-2) /hpf Urine Bacteria (Auto) 4+ H (None Seen) Diagnostic Findings CT SCAN OF THE ABDOMEN AND PELVIS WITH IV CONTRAST CLINICAL HISTORY: Right flank pain and nausea. COMPARISON STUDY: CT of the abdomen and pelvis October 05, 2013. Renal ultrasound August 29, 2021. TECHNIQUE: Following the IV administration of 94 cc of Optiray 320, CT scan of the abdomen and pelvis is performed from the lung bases to the proximal femora. Images are reviewed in the axial, sagittal, and coronal planes. IV contrast was administered without complication. A dose lowering technique was utilized adhering to the principles of ALARA. CT DOSE: 338.45 mGy.cm FINDINGS: Visualized lung bases are unremarkable. There is no pneumatosis, free air or portal venous gas. Pneumobilia is noted status post cholecystectomy. There is no biliary ductal dilatation. A 1.3 cm left adrenal nodule is unchanged. This favors an adenoma. Right adrenal gland and spleen are unremarkable. A few small cystic lesions within the pancreas are present. The largest is a 1.1 cm focus within the pancreatic neck on image 87. There is no pancreatic ductal dilatation. There is no peripancreatic inflammation. A 4 mm distal right ureteral calculus results in mild to moderate right hydronephrosis with moderate perinephric fluid. No additional urinary calculi are identified on contrast enhanced exam. Subcentimeter bilateral renal lesions are too small to characterize but favor cysts. There is no evidence for a bowel obstruction. There is no lymphadenopathy. Colonic diverticulosis is present. There is no evidence for acute diverticulitis. IMPRESSION: 1. 4 mm distal right ureteral calculus results in mild to moderate right hydronephrosis with moderate perinephric fluid. 2. A few small cystic lesions within the pancreatic neck which measure up to 1.1 cm. 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 Follow-up pancreatic protocol CT or MRI in 6 months to ensure stability is recommended. Medications Administered ER Medications Given: Normal saline 500ml bolus Ondansetron 4mg IV Morphine 4mg IV Ceftriaxone 2000mg IV Normal saline 1000ml bolus Morphine 4mg IV Code Status & VTE Plan Code Status DNR/DNI VTE Prophylaxis Plan VTE Prophylaxis will be ordered: Yes PG Care Time/CCT Total # of Minutes Spent Total Time Spent with Patient: Total time spent is greater than 50% in coordination of care (as documented) at patient's floor/unit and/or counseling patient: Coding Level of Care Code 28536 INT INP/OBS CARE 3/75MIN Diagnoses Hydronephrosis N13.30 Elevated lactic acid level R79.89 Leukocytosis D72.829 Calculus of distal right ureter N20.1 Acute UTI (urinary tract infection) N39.0 Severe sepsis A41.9; R65.20 Essential hypertension I10 Hypertension type: essential hypertension GERD (gastroesophageal reflux disease) K21.9 PMR (polymyalgia rheumatica) M35.3 Hypothyroid E03.9 (7) HTN (hypertension) Hypertension type: essential hypertension Qualified Code(s): I10 - Essential (primary) hypertension
--- NOTE | 2025-06-07 11:38 | Anesthesiology Consultation ---
Date of Service June 07, 2025 Assessment & Plan Chart Review Chart Review: Acceptable Risk for Surgery and Patient NOT seen in Pre Admission Testing Consults Requested none History Surgery Operation Date: 06/07/25 07:00 Proposed Procedures p Cystoscopy Right Retrograde Pyelogram and Stent Placement - Brandon Smith MD Height/Weight Height: 4 ft 11 in Allergies Allergy/AdvReac Type Severity Reaction Status Date / Time cefdinir AdvReac Severe Diarrhea Verified 05/23/25 09:20 duloxetine AdvReac Intermediate Diarrhea Verified 05/23/25 09:20 sertraline AdvReac Mild Diarrhea Verified 05/23/25 09:20 Medications Home Medications Medication Instructions Recorded Confirmed Last Taken cholecalciferol (vitamin D3) 50 2,000 units PO QAM 02/16/19 06/07/25 06/17/22 08:00 mcg (2,000 unit) capsule loperamide 2 mg-simethicone 125 mg 2 tab PO Q3H PRN loose stool #30 04/05/19 06/07/25 06/17/22 21:00 tablet (Imodium Multi-Symptom tabs Relief) meclizine 25 mg tablet 25 mg PO TID PRN dizziness #30 tabs 04/24/19 06/07/25 Unknown acetaminophen 500 mg tablet 1,000 mg PO Q8 PRN Pain 10/27/22 06/07/25 Unknown (Tylenol Extra Strength) fluticasone propionate 50 2 spray intranasal DAILY #48 mL 03/17/23 06/07/25 Unknown mcg/actuation nasal spray,suspension baclofen 5 mg tablet 5 mg PO DAILY PRN Muscle Spasm 07/25/24 06/07/25 Unknown alendronate 70 mg tablet (Fosamax) 70 mg PO .Weekly #12 tabs 11/29/24 06/07/25 Unknown clobetasol 0.05 % topical ointment See Rx Instructions .Route 02/21/25 06/07/25 Unknown .COMPLEX #30 grams levothyroxine 75 mcg tablet 75 mcg PO DAILY #90 tabs 02/21/25 06/07/25 Unknown lorazepam 0.5 mg tablet 0.5 mg PO DAILY PRN Anxiety #20 02/22/25 06/07/25 Unknown tabs candesartan 32 mg tablet 32 mg PO QAM #90 tabs 04/12/25 06/07/25 Unknown prednisone 5 mg tablet 5 mg PO QAM #30 tabs 05/16/25 06/07/25 Unknown escitalopram oxalate 5 mg tablet 5 mg PO DAILY #90 tabs 06/04/25 06/07/25 Unknown Past Medical History Medical History History of fall Nasal septal deviation History of blood transfusion Acute kidney injury superimposed on chronic kidney disease Acute Lyme disease Hypomagnesemia SI joint arthritis Chronic diarrhea Kidney stone Past Family History Family History Father Renal failure Cardiovascular disease (Premature) Acute myocardial infarction Diabetes Colon cancer Myocardial infarction Mother Hypertension Brother Acute myocardial infarction Obesity Malignant neoplasm of pancreas Myocardial infarction Sister Colon cancer Daughter Adult celiac disease Denies family history of Ovarian cancer Prostate cancer Crohn's disease Breast cancer Inflammatory bowel diseases (IBD) Past Surgical History Surgical History S/p reverse total shoulder arthroplasty History of esophagogastroduodenoscopy (EGD) History of tooth extraction History of lithotripsy History of arthroplasty of left shoulder History of rotator cuff surgery History of neck surgery History of carpal tunnel release of both wrists History of cystocele Hx of tonsillectomy History of ERCP H/O colonoscopy Hx of cholecystectomy Hx of cataract surgery H/O: hysterectomy Social History Smoking Status: Never smoker Do You Dip or Chew Tobacco: No Hx Alcohol Use: Yes Alcohol type: wine alcohol intake frequency: holidays/special occasions only Hx Substance Use: No substance use type: does not use Physical Exam Vital Signs Last Vital Signs Temp 36.9 C 06/07/25 08:02 Pulse 63 06/07/25 09:00 Resp 15 06/07/25 09:00 BP 140/68 06/07/25 09:00 Pulse Ox 97 06/07/25 08:36 O2 Del Method Room Air 06/07/25 08:20 Testing Laboratory Results 06/07/25 08:18 06/07/25 08:18 Urine Color Yellow 06/07/25 Unknown Urine Appearance Clear (Clear) 06/07/25 Unknown Urine pH 5.5 (4.5-7.5) 06/07/25 Unknown Ur Specific [place] 1.014 (1.000-1.030) 06/07/25 Unknown Urine Protein Negative (Negative) 06/07/25 Unknown Urine Glucose (UA) Negative (Negative) 06/07/25 Unknown Urine Ketones Negative (Negative) 06/07/25 Unknown Urine Nitrite Positive (Negative) A 06/07/25 Unknown Ur Leukocyte Esterase 1+ (Negative) H 06/07/25 Unknown Urine WBC (Auto) 21-50 /hpf (0-5) H 06/07/25 Unknown Urine RBC (Auto) >20 /hpf (0-2) H 06/07/25 Unknown U Hyaline Cast (Auto) 0-2 /lpf (0-2) 06/07/25 Unknown U Epithel Cells (Auto) 0-2 /hpf (0-2) 06/07/25 Unknown Urine Bacteria (Auto) 4+ (None Seen) H 06/07/25 Unknown
--- NOTE | 2025-06-07 11:44 | Urology Consultation ---
<Statement entered by Brandon Smith MD - 06/07/25 12:02> 85-year-old female with right-sided ureteral stone, urinary tract infection and concern for sepsis. To allow maximal drainage of the urinary tract and hopefully provide source control, we will plan for cystoscopy, right retrograde pyelogram and right ureteral stent placement. Date of Consultation June 07, 2025 Assessment & Plan (1) Right ureteral stone: (2) Hydronephrosis, right: (3) Urinary tract infection: Plan 85yo F with an obstructing 4mm distal right ureteral stone and concern for infection Discussed stone management in the setting of an obstructing stone and infection. Discussed cystoscopy with right ureteral stent placement. Ureteral stents were discussed as well as postoperative issues and pain management. Patient is aware a second procedure will likely be needed for stone treatment. Risks and benefits were discussed. All questions were answered. Will proceed to the OR for cystoscopy, right retrograde pyelogram, right ureteral stent placement. Risks and benefits to be reviewed with patient by Dr. Smith. Keep NPO. Patient received IV ceftriaxone in the ED. Urology to follow. History of Present Illness History of Present Illness 85-year-old female who presented to the ED today for evaluation of acute right sided flank pain. In the ED, she was afebrile and hemodynamically stable. Labs showed a leukocytosis of 19.99, creatinine 1.33, and lactate 3.4. Urinalysis with 2+ blood, positive nitrite, 1+ LE, 2150 WBC,> 20 RBC, 4+ bacteria. CT abdomen pelvis demonstrated an obstructing 4 mm distal right ureteral stone. ED course included IV fluids, Zofran, morphine, Rocephin. Urine culture pending. She is being admitted to medicine service. Patient seen at bedside in the ED. She is awake and resting in bed on arrival. Still with right sided pain. No fever but having rigors. Denies hematuria or dysuria. She is NPO. Allergies Allergy/AdvReac Type Severity Reaction Status Date / Time cefdinir AdvReac Severe Diarrhea Verified 05/23/25 09:20 duloxetine AdvReac Intermediate Diarrhea Verified 05/23/25 09:20 sertraline AdvReac Mild Diarrhea Verified 05/23/25 09:20 Home Medications Medication Instructions Recorded Confirmed Type cholecalciferol (vitamin D3) 50 2,000 units PO QAM 02/16/19 06/07/25 History mcg (2,000 unit) capsule loperamide 2 mg-simethicone 125 mg 2 tab PO Q3H PRN loose stool #30 04/05/19 06/07/25 Rx tablet (Imodium Multi-Symptom tabs Relief) meclizine 25 mg tablet 25 mg PO TID PRN dizziness #30 tabs 04/24/19 06/07/25 Rx acetaminophen 500 mg tablet 1,000 mg PO Q8 PRN Pain 10/27/22 06/07/25 History (Tylenol Extra Strength) fluticasone propionate 50 2 spray intranasal DAILY #48 mL 03/17/23 06/07/25 Rx mcg/actuation nasal spray,suspension baclofen 5 mg tablet 5 mg PO DAILY PRN Muscle Spasm 07/25/24 06/07/25 History alendronate 70 mg tablet (Fosamax) 70 mg PO .Weekly #12 tabs 11/29/24 06/07/25 Rx clobetasol 0.05 % topical ointment See Rx Instructions .Route 02/21/25 06/07/25 Rx .COMPLEX #30 grams levothyroxine 75 mcg tablet 75 mcg PO DAILY #90 tabs 02/21/25 06/07/25 Rx lorazepam 0.5 mg tablet 0.5 mg PO DAILY PRN Anxiety #20 02/22/25 06/07/25 Rx tabs candesartan 32 mg tablet 32 mg PO QAM #90 tabs 04/12/25 06/07/25 Rx prednisone 5 mg tablet 5 mg PO QAM #30 tabs 05/16/25 06/07/25 Rx escitalopram oxalate 5 mg tablet 5 mg PO DAILY #90 tabs 06/04/25 06/07/25 Rx Patient History Medical History History of fall Nasal septal deviation History of blood transfusion Acute kidney injury superimposed on chronic kidney disease Acute Lyme disease Hypomagnesemia SI joint arthritis Chronic diarrhea Kidney stone Surgical History S/p reverse total shoulder arthroplasty History of esophagogastroduodenoscopy (EGD) History of tooth extraction History of lithotripsy History of arthroplasty of left shoulder History of rotator cuff surgery History of neck surgery History of carpal tunnel release of both wrists History of cystocele Hx of tonsillectomy History of ERCP H/O colonoscopy Hx of cholecystectomy Hx of cataract surgery H/O: hysterectomy Family History Father Renal failure Cardiovascular disease (Premature) Acute myocardial infarction Diabetes Colon cancer Myocardial infarction Mother Hypertension Brother Acute myocardial infarction Obesity Malignant neoplasm of pancreas Myocardial infarction Sister Colon cancer Daughter Adult celiac disease Denies family history of Ovarian cancer Prostate cancer Crohn's disease Breast cancer Inflammatory bowel diseases (IBD) Social History Smoking Status: Never smoker Second Hand Exposure: No; Do You Dip or Chew Tobacco: No; Hx Alcohol Use: Yes Alcohol type: wine Alcohol Intake Frequency: Monthly or Less Hx Substance Use: No Preferred Language: Tanzanian Communication Ability: Effective Visual Impairment: No Limitations Hearing Ability: Normal Ice Guard Skating Rink Required: No Beliefs That Will Affect Care: None marital status: Current Living Situation: Alone current occupational status: retired How many Children do You have: 2 Feels Safe at Home: Yes Childhood Exposure to Second-Hand Smoke: No Diet: regular Diet Comment: regular caffeine: Yes (diet coke) during the past year weight has: other Dental Care, Regularly: Yes Physical Activity Frequency: Daily Seatbelt Use: always Sunscreen Use: Yes Assistive Devices: None Review of Systems Review of Systems: All systems reviewed & are unremarkable except as noted in HPI & below Physical Exam Constitutional: + ill appearing; + uncomfortable Respiratory: no respiratory distress and no labored breathing Neurologic: awake Psychiatric: Orientation: alert, oriented to person and cooperative Results & Data Vital Signs (Past 12 Hours) Vital Signs Temp Pulse Resp BP Pulse Ox O2 Del Method 06/07/25 09:00 63 15 06/07/25 09:00 140/68 06/07/25 08:36 70 22 97 06/07/25 08:31 159/85 H 06/07/25 08:30 72 19 95 06/07/25 08:24 64 17 96 06/07/25 08:20 97 Room Air 06/07/25 08:16 60 06/07/25 08:11 122/95 06/07/25 08:02 36.9 C 71 18 166/80 H 98 Room Air PG Care Time/CCT Total # of Minutes Spent Total Time Spent with Patient: Total time spent is greater than 50% in coordination of care (as documented) at patient's floor/unit and/or counseling patient: Coding Level of Care Code 57766 INT INP/OBS CARE 2/55MIN Diagnoses Right ureteral stone N20.1 Hydronephrosis, right N13.30 Urinary tract infection N39.0
[2025-06-07] MEDS ORDERED: DEXAMETHASONE SOD INJ 4 MG/ML VIAL ONE (11:50)
[2025-06-07] MEDS ORDERED: ONDANSETRON INJ 2 MG/ML 2 ML VIAL ONE (11:50)
[2025-06-07] MEDS ORDERED: PROPOFOL IV EMULSION 10 MG/ML 20 ML VIAL IV ONE (11:50)
[2025-06-07] MEDS ORDERED: LIDOCAINE 2% 2 ML VIAL/AMP(20MG/ML) INFIL ONE (11:50)
[2025-06-07] MEDS: SODIUM CHLORIDE 0.9% 1,000 ML IV SCH (12:25)
[2025-06-07] MEDS: HYDROCORTISONE SOD SUCCINATE 100 MG/2 ML VIAL IV STA (12:25)
[2025-06-07] MEDS ORDERED: PHENYLEPHRINE HCL 10 MG/ML VIAL ONE (12:58)
--- NOTE | 2025-06-07 13:20 | Operative Report ---
PG Post Operative Report Pre & Post Diagnosis Operation Date: 06/07/25 07:00 Pre-Op Diagnosis: Right ureteral stone Post-Op Diagnosis: Right ureteral stone I identified the patient and participated in the time-out.: Yes Procedure Operation Date: 06/07/25 07:00 Actual Procedures p Cystoscopy Right Stent Placement(Right) - Brandon Smith MD Surgeon Brandon Smith MD Basket Weaver None Estimated Blood Loss 0 Findings Consistent with Post-Op Diagnosis Specimens None Drains 6 Bermudian x 24 cm double-J ureteral stent in the right ureter Anesthesia Type MAC Complications none Disposition Accompanied Patient To Recovery: Yes Disposition: Recovery Room Indications This is an 85-year-old female who presented to the emergency department on 06/07/2025 and was found to have an obstructing right ureteral stone, urinary tract infection and signs of developing sepsis. She is being brought to the OR for right ureteral stent placement to decompress her kidney. Description of Procedure The patient was identified in the holding area and informed consent was confirmed. She was marked on the right side, then was taken to the operating room where anesthesia was initiated. She was placed in the dorsal lithotomy position with all pressure points appropriately padded. She was prepped and draped in the usual sterile fashion and a preoperative timeout was performed. A well-lubricated cystoscope was inserted per urethra and panendoscopy was performed. The urethra was normal in appearance. The bladder was of normal size with ureteral orifices in orthotopic position. The right ureteral orifice was identified and cannulated with a 0.038 inch zip wire through a 5 Bermudian open-ended catheter. X-ray demonstrated contrast already in her kidney from her earlier scan, suggesting obstruction. An appropriate amount of wire was advanced up to the kidney. Over the wire, a 6 B[place]udian x 24 centimeter double-J ureteral stent was advanced. When the wire was removed, the proximal curl was visualized in the kidney with x-ray, and the distal curl visualized in the bladder with the cystoscope. At this point the bladder was drained and all instrumentation was removed. The patient was then awakened from anesthesia and was brought to the PACU in stable condition. I attest to the content of the Intraoperative Record and any orders documented therein. Any exceptions are noted below.
--- NOTE | 2025-06-07 13:51 | Anesthesiology Progress Note ---
Date of Service June 07, 2025 Anesthesia Post Procedure Vital Signs Vital Signs: Temp Pulse Pulse Pulse Resp BP BP 06/07/25 13:40 36.8 C 89 14 103/58 L 06/07/25 13:30 89 16 96/50 L 06/07/25 13:20 36.4 C L 82 15 84/55 L 06/07/25 12:32 37.5 C 111 H 20 135/91 06/07/25 09:00 63 15 06/07/25 09:00 140/68 06/07/25 08:36 70 22 06/07/25 08:31 159/85 H 06/07/25 08:30 72 19 06/07/25 08:24 64 17 06/07/25 08:20 06/07/25 08:16 60 06/07/25 08:11 122/95 06/07/25 08:02 36.9 C 71 18 166/80 H Pulse Ox O2 Del Method O2 Flow Rate 06/07/25 13:40 96 Nasal Cannula 2 06/07/25 13:30 89 L Room Air 06/07/25 13:20 98 Oxymask 4 06/07/25 12:32 94 Nasal Cannula 1.5 06/07/25 09:00 06/07/25 09:00 06/07/25 08:36 97 06/07/25 08:31 06/07/25 08:30 95 06/07/25 08:24 96 06/07/25 08:20 97 Room Air 06/07/25 08:16 06/07/25 08:11 06/07/25 08:02 98 Room Air Transfer of Care Handoff Completed per policy Notes Mental Status: alert / awake / arousable Patient Amnestic to Procedure: Yes Nausea / Vomiting: adequately controlled Pain: adequately controlled Airway Patency, RR, SpO2: stable & adequate BP & HR: stable & adequate Hydration State: stable & adequate Anesthetic Complications: no major complications apparent
[2025-06-07] MEDS: LACTATED RINGER'S 1,000 ML IV ONE (14:54)
[2025-06-07] MEDS: PANTOprazole 40 MG/10 ML SYR IV STA (15:11)
[2025-06-07] MEDS: PANTOprazole 40 MG/10 ML SYR IV ONE (15:11)
--- NOTE | 2025-06-07 16:21 | Fluoroscopy Report ---
FL retrograde includes kub CLINICAL HISTORY: RETROGRADE, STENT COMPARISON STUDY: None FLUOROSCOPY TIME: 6 seconds FLUOROSCOPY IMAGES: 2 EXPOSURE DOSE: 1 mGy FINDINGS: Fluoroscopy was provided for urologic procedure. IMPRESSION: Intraoperative fluoroscopy. ACT 112: Negative or not required by law. Electronically signed by: Arturo Calvillo M.D. 06/07/2025 4:20 PM
[2025-06-07] MEDS: HYDROCORTISONE SOD 50 MG in SYRINGE 0 ML IV SCH (17:19)
--- NOTE | 2025-06-07 19:53 | XRay Report ---
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 Surgical hardware in the cervical spine. The chest is well-expanded. Patient is rotated with soft tissue attenuation surrounding the trachea/mediastinum, unchanged. No airspace consolidation, effusion or congestive changes. Heart size is upper limits of normal. No pneumothorax. Trachea is patent. Osseous structures demonstrate no acute abnormality. No radiopaque foreign body. IMPRESSION: No plain film evidence of an acute cardiopulmonary process. If clinically appropriate, chest CT could be considered. Electronically signed by Afsaneh Grover 06-07-2025 7:53 PM
[2025-06-07] MEDS: ACETAMINOPHEN 500 MG TAB PO PRN (20:13)
[2025-06-07] MEDS: HEPARIN SOD 5,000 UNIT/0.5 ML VIAL SQ SCH (20:14)
[2025-06-07] MEDS ORDERED: ONDANSETRON INJ 2 MG/ML 2 ML VIAL IV PRN (20:19)
[2025-06-08] MEDS: MoRPHine SULFATE 4 MG/ML 1 ML CARP\\VIAL IV PRN (00:03)
[2025-06-08] MEDS: LEVOTHYROXINE SODIUM 75 MCG TABLET PO SCH (06:17)
[2025-06-08 07:32] LABS: Hematocrit (blood only) 33.8 % (37.0-47.0); Hemoglobin 10.7 g/dl (12.0-16.0); Mean Corpuscular Hemoglobin 29.6 pg (25.0-34.0); Mean Corpuscular Volume 93.6 fL (80.0-100.0); Platelet Count 191 K/uL (130-400); RDW Standard Deviation 46.6 fL (36.4-46.3); Red Blood Count 3.61 M/uL (4.20-5.40); White Blood Count 21.98 K/ul (4.8-10.8)
[2025-06-08 07:48] LABS: Anion Gap 7.0 (3-11); Blood Urea Nitrogen 39.0 mg/dl (6-23); Calcium 8.2 mg/dl (8.6-10.3); Carbon Dioxide 23.0 mmol/L (21-32); Chloride 110.0 mmol/L (98-107); Creatinine Clr Calc Pharmacy 18.9 ml/min; Glucose 107.0 mg/dl (70-99(Fasting)); Potassium 5.2 mmol/L (3.5-5.1); Sodium 140.0 mmol/L (136-145)
[2025-06-08 08:03] LABS: Thyroid Stimulating Hormone 0.32 uIu/ml (0.300-4.500)
[2025-06-08 08:09] LABS: Immature Granulocytes # (auto) 0.18 K/uL (0.01-0.20); Immature Granulocytes % (auto) 0.8 %
[2025-06-08] MEDS: ESCITALOPRAM OXALATE 10 MG TAB PO SCH (08:46)
[2025-06-08] MEDS: CIPROFLOXACIN / D5W 400 MG/200 ML BAG IV SCH (08:46)
[2025-06-08] MEDS: FLUTICASONE PROPIONATE NA SPR 16 GM BTL NAE SCH (08:50)
--- NOTE | 2025-06-08 10:53 | Electrocardiogram Report ---
Test Reason : Blood Pressure : */* mmHG Vent. Rate : 56 BPM Atrial Rate : 56 BPM P-R Int : 140 ms QRS Dur : 74 ms QT Int : 500 ms P-R-T Axes : 45 -2 133 degrees QTcB Int : 482 ms Sinus bradycardia Poor R wave progression, consider anterior MO vs. lead placement vs. LVH T wave abnormality, consider lateral ischemia Abnormal ECG When compared with ECG of 07-May-2022 11:09, T wave inversion now evident in Anterolateral leads Confirmed by Scooter Villalba ([id number]) on 06/08/2025 10:52:40 AM Referred By: REFERRED SELF Confirmed By: Scooter Villalba
--- NOTE | 2025-06-08 12:23 | Urology Progress Note ---
Date of Service June 08, 2025 Assessment & Plan (1) Hydronephrosis: (2) Calculus of distal right ureter: (3) Acute UTI (urinary tract infection): Plan POD #1 s/p cystoscopy and right ureteral stent placement Subjectively feeling better today, tolerating the stent with moderate bother Patient afebrile and hemodynamically stable Labs today show WBCs 21.98, creatinine 1.65 Urine culture pending; Blood cultures preliminary no growth x 24 hours Continue antibiotic therapy and tailor per culture sensitivities Continue supportive care and pain management as needed Can consider tamsulosin, Pyridium, oxybutynin for stent management Will arrange outpatient follow-up with our service Urology will sign off, please contact us with any further questions/concerns or changes in patient's status Admission and Anticipated Discharge Date Admission Date: June 07, 2025 Subjective Patient seen at bedside this morning. Awake and resting in bed. No acute distress. Feeling better this morning. Still having some mild right sided discomfort. Reports some urinary frequency. No f/c/n/v. Review of Systems Constitutional: as per Subjective / HPI Genitourinary: as per Subjective / HPI Physical Exam Constitutional: no acute distress Respiratory: no respiratory distress and no labored breathing Neurologic: awake Psychiatric: A+Ox3, euthymic affect Results & Data Vital Signs (Past 12 Hours) Vital Signs Temp Pulse Pulse Resp BP Pulse Ox O2 Del Method 06/08/25 11:15 36.3 C L 60 18 109/63 96 Room Air 06/08/25 09:00 95 Room Air 06/08/25 08:00 Room Air 06/08/25 07:32 59 L 06/08/25 07:19 36.3 C L 55 L 19 112/63 97 Nasal Cannula 06/08/25 04:17 36.4 C L 56 L 17 109/65 91 Nasal Cannula O2 Flow Rate 06/08/25 11:15 06/08/25 09:00 06/08/25 08:00 06/08/25 07:32 06/08/25 07:19 1 06/08/25 04:17 1 PG Care Time/CCT Total # of Minutes Spent Total Time Spent with Patient: Total time spent is greater than 50% in coordination of care (as documented) at patient's floor/unit and/or counseling patient: Coding Level of Care Code 09600 SUB INP/OBS CARE 2/35MIN Diagnoses Hydronephrosis N13.30 Calculus of distal right ureter N20.1 Acute UTI (urinary tract infection) N39.0
[2025-06-08] MEDS: ADVANCED PROBIOTIC 625 MG CAPSULE PO SCH (16:00)
[2025-06-08] MEDS: HYDROCORTISONE SOD 25 MG in SYRINGE 0 ML IV ONE (16:00)
--- NOTE | 2025-06-08 16:01 | Hospitalist Progress Note ---
Date of Service June 08, 2025 Assessment & Plan (1) Hydronephrosis: (2) Elevated lactic acid level: (3) Leukocytosis: (4) Calculus of distal right ureter: (5) Acute UTI (urinary tract infection): (6) Severe sepsis: (7) HTN (hypertension): (8) GERD (gastroesophageal reflux disease): (9) PMR (polymyalgia rheumatica): (10) Hypothyroid: Plan 85 year old female presents to the ER with right flank pain #Sepsis / Pyelonephritis (right CVA tenderness) / Ureterolithiasis Meets SIRS criteria on admission with WBC and tachycardia although this was after she had a fall in the ER trying to get off the toilet Status post ureteral stent insertion 06/[address] Smith Second lactate I believe was not drawn correctly (taken after prolonged tourniquet after blood cultures), will repeat post operatively, irregardless 1.5L NSS given meets 30ml/kg ideal body weight (1299ml) Ceftriaxone given in the ER but possible maculopapular rash occurred after this with rigors - IV diphenhydramine given and no rash appears at time of admission - recommend follow up with allergy Urine culture with Klebsiella Pneumoniae. Blood cultures negative @ 24 hours. Continue ciprofloxacin Reduce hydrocortisone to 25mg IV this afternoon then return to prednisone 5mg daily tomorrow as long as blood pressure stable #Possible allergic reaction to ceftriaxone Follow up with allergy as outpatient #GERD Worse over the last week Continue pantoprazole #Hypertension Hold candesartan #Hypothyroidism TSH 0.32 Continue levothyroxine 75 mcg PO daily #Polymyalgia rheumatica Continue prednisone 5mg PO daily VTE Prophylaxis - Heparin 5000 units SQ BID Disposition - stable for transfer to med/surg, sinus rhythm on telemetry Admission and Anticipated Discharge Date Admission Date: June 07, 2025 Subjective Feeling improved today. Some stent related pain when getting up and moving. Using oxycodone and morphine overnight. Discussed risks of taking opiates for her pain. Afebrile. Having urine urgency. Physical Exam Respiratory: normal respiratory effort, lungs clear to auscultation Cardiovascular: RRR, no murmur, no edema Gastrointestinal (Abdomen): normal bowel sounds, soft, nontender, no hepatosplenomegaly Genitourinary: + CVA tenderness (right) Results & Data Results & Data Vital Signs (Past 12 Hours) Vital Signs Temp Pulse Pulse Resp BP Pulse Ox O2 Del Method 06/08/25 15:20 36.6 C 59 L 19 113/61 95 Room Air 06/08/25 14:43 59 L 06/08/25 11:15 36.3 C L 60 18 109/63 96 Room Air 06/08/25 09:00 95 Room Air 06/08/25 08:00 Room Air 06/08/25 07:32 59 L 06/08/25 07:19 36.3 C L 55 L 19 112/63 97 Nasal Cannula 06/08/25 04:17 36.4 C L 56 L 17 109/65 91 Nasal Cannula O2 Flow Rate 06/08/25 15:20 06/08/25 14:43 06/08/25 11:15 06/08/25 09:00 06/08/25 08:00 06/08/25 07:32 06/08/25 07:19 1 06/08/25 04:17 1 PG Care Time/CCT Total # of Minutes Spent Total Time Spent with Patient: Total time spent is greater than 50% in coordination of care (as documented) at patient's floor/unit and/or counseling patient: Coding Level of Care Code 46500 SUB INP/OBS CARE 3/50MIN Diagnoses Hydronephrosis N13.30 Elevated lactic acid level R79.89 Leukocytosis D72.829 Calculus of distal right ureter N20.1 Acute UTI (urinary tract infection) N39.0 Severe sepsis A41.9; R65.20 Essential hypertension I10 Hypertension type: essential hypertension GERD (gastroesophageal reflux disease) K21.9 PMR (polymyalgia rheumatica) M35.3 Hypothyroid E03.9 (7) HTN (hypertension) Hypertension type: essential hypertension Qualified Code(s): I10 - Essential (primary) hypertension
[2025-06-09 08:47] LABS: Hematocrit (blood only) 33.9 % (37.0-47.0); Hemoglobin 11.4 g/dl (12.0-16.0); Immature Granulocytes # (auto) 0.18 K/uL (0.01-0.20); Immature Granulocytes % (auto) 1.0 %; Mean Corpuscular Hemoglobin 31.0 pg (25.0-34.0); Mean Corpuscular Volume 92.1 fL (80.0-100.0); Platelet Count 228 K/uL (130-400); RDW Standard Deviation 44.7 fL (36.4-46.3); Red Blood Count 3.68 M/uL (4.20-5.40); White Blood Count 18.58 K/ul (4.8-10.8)
[2025-06-09 09:08] LABS: Anion Gap 8.0 (3-11); Blood Urea Nitrogen 41.0 mg/dl (6-23); Calcium 8.6 mg/dl (8.6-10.3); Carbon Dioxide 23.0 mmol/L (21-32); Chloride 108.0 mmol/L (98-107); Creatinine Clr Calc Pharmacy 18.0 ml/min; Glucose 121.0 mg/dl (70-99(Fasting)); Potassium 4.4 mmol/L (3.5-5.1); Sodium 139.0 mmol/L (136-145)
[2025-06-09] MEDS: LACTATED RINGER'S 1,000 ML IV SCH (09:32)
[2025-06-09] MEDS ORDERED: POLYETHYLENE (MIRALAX) 17 GM PACK PO SCH (11:45)
--- NOTE | 2025-06-09 18:28 | Hospitalist Progress Note ---
Date of Service June 09, 2025 Assessment & Plan (1) Hydronephrosis: (2) Elevated lactic acid level: (3) Leukocytosis: (4) Calculus of distal right ureter: (5) Acute UTI (urinary tract infection): (6) Severe sepsis: (7) HTN (hypertension): (8) GERD (gastroesophageal reflux disease): (9) PMR (polymyalgia rheumatica): (10) Hypothyroid: Plan 85 year old female presents to the ER with right flank pain #Sepsis / Pyelonephritis (right CVA tenderness) / Ureterolithiasis Pansensitive Klebsiella pneumoniae UTI Status post ureteral stent insertion 06/[address] Smith Ceftriaxone given in the ER but possible maculopapular rash occurred after this with rigors - IV diphenhydramine given and no rash appears at time of admission - recommend follow up with allergy Urine culture with Klebsiella Pneumoniae. Blood cultures negative @ 24 hours. Continue ciprofloxacin, will consider Bactrim once Cr starts to improve BP stable, stopping stress dose steroids today #Acute kidney injury Suspect some degree of shock on admission, delta change is slowing, will give LR 1L today and repeat tomorrow with expectation is will start to improve in the next 24-48 hours #Possible allergic reaction to ceftriaxone Follow up with allergy as outpatient #GERD Worse over the last week Continue pantoprazole #Hypertension Restart candesartan tomorrow #Hypothyroidism TSH 0.32 Continue levothyroxine 75 mcg PO daily #Polymyalgia rheumatica Continue prednisone 5mg PO daily VTE Prophylaxis - Heparin 5000 units SQ BID Disposition - continue on med/surg, PT/OT pending Admission and Anticipated Discharge Date Admission Date: June 07, 2025 Subjective Ongoing pain from stent on any movement. Still requiring morphine and oxycodone. A little confused yesterday around 5pm per nurse report. Not yet seen by PT/OT but reportedly quite mobile around the room. All questions from daughter answered at bedside. Physical Exam Respiratory: normal respiratory effort, lungs clear to auscultation Cardiovascular: RRR, no murmur, no edema Gastrointestinal (Abdomen): normal bowel sounds, soft, nontender, no hepatosplenomegaly Genitourinary: + CVA tenderness (right) Results & Data Results & Data Vital Signs (Past 12 Hours) Vital Signs Temp Pulse Pulse Resp BP BP Pulse Ox 06/09/25 15:06 36.8 C 64 16 172/74 H 94 06/09/25 11:06 36.7 C 60 19 143/70 H 96 06/09/25 07:25 36.5 C 57 L 19 166/75 H 95 O2 Del Method 06/09/25 15:06 Room Air 06/09/25 11:06 Room Air 06/09/25 07:25 Room Air PG Care Time/CCT Total # of Minutes Spent Total Time Spent with Patient: Total time spent is greater than 50% in coordination of care (as documented) at patient's floor/unit and/or counseling patient: Coding Level of Care Code 79227 SUB INP/OBS CARE 235MIN Diagnoses Hydronephrosis N13.30 Elevated lactic acid level R79.89 Leukocytosis D72.829 Calculus of distal right ureter N20.1 Acute UTI (urinary tract infection) N39.0 Severe sepsis A41.9; R65.20 Essential hypertension I10 Hypertension type: essential hypertension GERD (gastroesophageal reflux disease) K21.9 PMR (polymyalgia rheumatica) M35.3 Hypothyroid E03.9 (7) HTN (hypertension) Hypertension type: essential hypertension Qualified Code(s): I10 - Essential (primary) hypertension
[2025-06-10] MEDS: HYDROmorphone INJ 0.5 MG/0.5 ML SYR IV STA (02:49)
[2025-06-10 06:48] LABS: Hematocrit (blood only) 34.9 % (37.0-47.0); Hemoglobin 11.2 g/dl (12.0-16.0); Immature Granulocytes # (auto) 0.14 K/uL (0.01-0.20); Immature Granulocytes % (auto) 1.3 %; Mean Corpuscular Hemoglobin 29.6 pg (25.0-34.0); Mean Corpuscular Volume 92.1 fL (80.0-100.0); Platelet Count 196 K/uL (130-400); RDW Standard Deviation 44.6 fL (36.4-46.3); Red Blood Count 3.79 M/uL (4.20-5.40); White Blood Count 11.04 K/ul (4.8-10.8)
[2025-06-10 07:09] LABS: Anion Gap 7.0 (3-11); Blood Urea Nitrogen 32.0 mg/dl (6-23); Calcium 9.0 mg/dl (8.6-10.3); Carbon Dioxide 24.0 mmol/L (21-32); Chloride 110.0 mmol/L (98-107); Creatinine Clr Calc Pharmacy 25.6 ml/min; Glucose 92.0 mg/dl (70-99(Fasting)); Potassium 4.3 mmol/L (3.5-5.1); Sodium 141.0 mmol/L (136-145)
[2025-06-10] MEDS: LOSARTAN POTASSIUM 50 MG TAB PO SCH (07:43)
--- NOTE | 2025-06-10 08:02 | XRay Report ---
KUB HISTORY: left flank pain s/p ureteral stent COMPARISON STUDY: 06/07/2025 CT FINDINGS: There is an interval right ureteral stent which appears grossly well positioned. No definit e renal calculi seen. There is moderate retained stool. No bowel obstruction seen. IMPRESSION: 1. Interval right ureteral stent appears grossly well positioned. 2. Otherwise no acute finding seen by plain film. ACT 112: Negative or not required by law. The above report was generated using voice recognition software. It may contain grammatical, syntax o r spelling errors. Electronically signed by: Arturo Calvillo M.D. 06/10/2025 8:01 AM
[2025-06-10] MEDS: OXYBUTYNIN CHLORIDE XL 5 MG TABCR PO SCH (08:09)
--- NOTE | 2025-06-10 16:31 | Hospitalist Progress Note ---
Date of Service June 10, 2025 Assessment & Plan (1) Hydronephrosis: (2) Elevated lactic acid level: (3) Leukocytosis: (4) Calculus of distal right ureter: (5) Acute UTI (urinary tract infection): (6) Severe sepsis: (7) HTN (hypertension): (8) GERD (gastroesophageal reflux disease): (9) PMR (polymyalgia rheumatica): (10) Hypothyroid: Plan 85 year old female presents to the ER with right flank pain #Sepsis / Pyelonephritis (right CVA tenderness) / Ureterolithiasis Status post ureteral stent insertion 06/[address] Smith No longer requiring stress dose steroids - stopped 06/09 Ceftriaxone given in the ER but possible maculopapular rash occurred after this with rigors - IV diphenhydramine given and no rash appears at time of admission - recommend follow up with allergy Urine culture with Klebsiella Pneumoniae. Blood cultures negative @ 48 hours. Continue ciprofloxacin. Start oxybutynin for stent related pain and hematuria. XR KUB showing stent in good position Will increase her pain medication back up to 2.5-5mg q4h PRN in addition to morphine if oxycodone not effective. If ongoing issue tomorrow will discuss with urology whether removal of stent as inpatient is an option, NPO after midnight just incase stone management sharon mmended tomorrow #Acute kidney injury Resolved, Cr should continue to improve, repeat level in AM #Possible allergic reaction to ceftriaxone Follow up with allergy as outpatient #GERD Worse over the week prior to admission Continue pantoprazole #Hypertension Candesartan switched for losartan per hospital formulary #Hypothyroidism TSH 0.32 Continue levothyroxine 75 mcg PO daily #Polymyalgia rheumatica Continue prednisone 5mg PO daily VTE Prophylaxis - Hold heparin due to altagracia hematuria, SCDs while in bed Disposition - continue on med/surg, PT/OT recommending home with home health Admission and Anticipated Discharge Date Admission Date: June 07, 2025 Subjective Significant right flank pain overnight. Reportedly also having some altagracia hematuria. Physical Exam Constitutional: WD/WN, vitals as above Respiratory: normal respiratory effort, lungs clear to auscultation Cardiovascular: RRR, no murmur, no edema Gastrointestinal (Abdomen): normal bowel sounds, soft, nontender, no hepatosplenomegaly Inspection/Auscultation: abdomen normal to inspection; abdomen not distended Percussion/Palpation: + abdomen tender (right sided) and abdomen soft Genitourinary: + CVA tenderness (right) Results & Data Results & Data Vital Signs (Past 12 Hours) Vital Signs Temp Pulse Resp BP Pulse Ox O2 Del Method 06/10/25 14:44 36.7 C 70 16 154/79 H 95 Room Air 06/10/25 07:35 36.3 C L 54 L 16 196/81 H 96 Room Air PG Care Time/CCT Total # of Minutes Spent Total Time Spent with Patient: Total time spent is greater than 50% in coordination of care (as documented) at patient's floor/unit and/or counseling patient: Coding Level of Care Code 18697 SUB INP/OBS CARE 2/35MIN Diagnoses Hydronephrosis N13.30 Elevated lactic acid level R79.89 Leukocytosis D72.829 Calculus of distal right ureter N20.1 Acute UTI (urinary tract infection) N39.0 Severe sepsis A41.9; R65.20 Essential hypertension I10 Hypertension type: essential hypertension GERD (gastroesophageal reflux disease) K21.9 PMR (polymyalgia rheumatica) M35.3 Hypothyroid E03.9 (7) HTN (hypertension) Hypertension type: essential hypertension Qualified Code(s): I10 - Essential (primary) hypertension
[2025-06-10] MEDS: POLYETHYLENE (MIRALAX) 17 GM PACK PO SCH (16:48)
[2025-06-10] MEDS: LACTATED RINGER'S 1,000 ML IV SCH (23:21)
[2025-06-11] MEDS: MoRPHine SULFATE 4 MG/ML 1 ML CARP\\VIAL IV PRN (01:21)
[2025-06-11] MEDS: CIPROFLOXACIN 500 MG TAB PO SCH (08:16)
[2025-06-11] MEDS: TAMSULOSIN HCL 0.4 MG CAP PO SCH (09:21)
[2025-06-11] MEDS: PHENAZOPYRIDINE HCL 100 MG TAB PO SCH (09:21)
--- NOTE | 2025-06-11 10:59 | Urology Progress Note ---
Date of Service June 11, 2025 Assessment & Plan (1) Right ureteral stone: Plan: Patient POD #4 cystoscopy and right ureteral stent placement Urology was asked to revisit patient today regarding stent discomfort and hematuria Patient is afebrile, hemodynamically stable Labs reviewedcreatinine 1.22, WBC 11.04, hemoglobin 11.2 Final urine culture with Klebsiellacurrently on ciprofloxacin Patient having discomfort from right ureteral stent KUB / shows right ureteral stent in appropriate position Recommend addition of tamsulosin and Pyridium for stent management, continue oxybutynin and as needed analgesia Continue antibiotics per culture We discussed that hematuria can be expected with stent in place Will arrange outpatient follow-up to set up stone treatment after infection has been treated Continue supportive care and medical management per hospital medicine service will sign off, please contact our service with any additional questions or concerns Admission and Anticipated Discharge Date Admission Date: June 07, 2025 Subjective Urology was asked by hospitalist to revisit patient regarding stent discomfort. Patient seen and examined at bedside this morning. She is awake and sitting up in bed. She has had right sided flank discomfort. Voiding spontaneously with intermittent hematuria. She reports urinary urgency. No fever or chills. Review of Systems Constitutional: as per Subjective / HPI Genitourinary: as per Subjective / HPI Physical Exam Constitutional: no acute distress Respiratory: normal respiratory effort; no respiratory distress and no labored breathing Gastrointestinal (Abdomen): Inspection/Auscultation: abdomen normal to inspection Musculoskeletal: Head/Neck/Chest: normocephalic Neurologic: moves all extremities and awake Psychiatric: Orientation: alert and oriented x 3 Results & Data Vital Signs (Past 12 Hours) Vital Signs Temp Pulse Resp BP Pulse Ox O2 Del Method 06/11/25 10:00 169/73 H 06/11/25 07:24 36.6 C 54 L 16 198/84 H 97 Room Air 06/10/25 23:36 36.8 C 59 L 18 170/83 H 97 Room Air PG Care Time/CCT Total # of Minutes Spent Total Time Spent with Patient: Total time spent is greater than 50% in coordination of care (as documented) at patient's floor/unit and/or counseling patient: Coding Level of Care Code 18138 SUB INP/OBS CARE 09/02MIN Diagnoses Right ureteral stone N20.1
--- NOTE | 2025-06-11 12:21 | Hospitalist Progress Note ---
Date of Service June 11, 2025 Assessment & Plan (1) Hydronephrosis: (2) Elevated lactic acid level: (3) Leukocytosis: (4) Calculus of distal right ureter: (5) Acute UTI (urinary tract infection): (6) Severe sepsis: (7) HTN (hypertension): (8) GERD (gastroesophageal reflux disease): (9) PMR (polymyalgia rheumatica): (10) Hypothyroid: Plan 85 year old female presents to the ER with right flank pain #Sepsis / Pyelonephritis (right CVA tenderness) / Ureterolithiasis Status post ureteral stent insertion 06/[address] Smith No longer requiring stress dose steroids - stopped 06/09 Ceftriaxone given in the ER but possible maculopapular rash occurred after this with rigors - IV diphenhydramine given and no rash appears at time of admission - recommend follow up with allergy Urine culture with Klebsiella Pneumoniae. Blood cultures negative @ 48 hours. Continue ciprofloxacin. Started oxybutynin for stent related pain and hematuria. XR KUB showing stent in good position. Discussed with urology and started tamsulosin and pyridium Will increase her pain medication back up to 2.5-5mg q4h PRN in addition to morphine if oxycodone not effective. Possible home tomorrow if remains doing well #Acute kidney injury Resolved, Cr should continue to improve, repeat level in AM #Possible allergic reaction to ceftriaxone Follow up with allergy as outpatient #GERD Worse over the week prior to admission Continue pantoprazole #Hypertension Candesartan switched for losartan per hospital formulary #Hypothyroidism TSH 0.32 Continue levothyroxine 75 mcg PO daily #Polymyalgia rheumatica Continue prednisone 5mg PO daily VTE Prophylaxis - Hold heparin due to altagracia hematuria, SCDs while in bed Disposition - continue on med/surg, PT/OT recommending home with home health Admission and Anticipated Discharge Date Admission Date: June 07, 2025 Subjective Feeling improved today. Streaks of blood in urine but generally doing well. Physical Exam Constitutional: WD/WN, vitals as above Respiratory: normal respiratory effort, lungs clear to auscultation Cardiovascular: RRR, no murmur, no edema Gastrointestinal (Abdomen): normal bowel sounds, soft, nontender, no hepatosplenomegaly Genitourinary: + CVA tenderness (right) Results & Data Results & Data Vital Signs (Past 12 Hours) Vital Signs Temp Pulse Resp BP Pulse Ox O2 Del Method 06/11/25 10:00 169/73 H 06/11/25 07:24 36.6 C 54 L 16 198/84 H 97 Room Air PG Care Time/CCT Total # of Minutes Spent Total Time Spent with Patient: Total time spent is greater than 50% in coordination of care (as documented) at patient's floor/unit and/or counseling patient: Coding Level of Care Code 52213 SUB INP/OBS CARE 2/35MIN Diagnoses Hydronephrosis N13.30 Elevated lactic acid level R79.89 Leukocytosis D72.829 Calculus of distal right ureter N20.1 Acute UTI (urinary tract infection) N39.0 Severe sepsis A41.9; R65.20 Essential hypertension I10 Hypertension type: essential hypertension GERD (gastroesophageal reflux disease) K21.9 PMR (polymyalgia rheumatica) M35.3 Hypothyroid E03.9 (7) HTN (hypertension) Hypertension type: essential hypertension Qualified Code(s): I10 - Essential (primary) hypertension
[2025-06-12 07:03] LABS: Alanine Aminotransferase 41.0 U/L (7-52); Albumin Globulin Ratio 1.3 (0.9-2); Albumin Level 3.7 gm/dl (3.4-5.0); Alkaline Phosphatase 63.0 U/L (34-104); Anion Gap 9.0 (3-11); Bilirubin,Total 0.4 mg/dl (0.2-1.0); Blood Urea Nitrogen 24.0 mg/dl (6-23); Calcium 9.6 mg/dl (8.6-10.3); Carbon Dioxide 29.0 mmol/L (21-32); Chloride 102.0 mmol/L (98-107); Creatinine Clr Calc Pharmacy 23.1 ml/min; Globulin 2.8 gm/dl (2.5-4.0); Glucose 91.0 mg/dl (70-99(Fasting)); Potassium 3.8 mmol/L (3.5-5.1); Sodium 140.0 mmol/L (136-145); Total Protein 6.5 gm/dl (6.0-8.3)
[2025-06-12 07:13] LABS: Hematocrit (blood only) 38.5 % (37.0-47.0); Hemoglobin 12.5 g/dl (12.0-16.0); Immature Granulocytes # (auto) 0.41 K/uL (0.01-0.20); Immature Granulocytes % (auto) 3.7 %; Mean Corpuscular Hemoglobin 29.9 pg (25.0-34.0); Mean Corpuscular Volume 92.1 fL (80.0-100.0); Platelet Count 246 K/uL (130-400); RDW Standard Deviation 44.4 fL (36.4-46.3); Red Blood Count 4.18 M/uL (4.20-5.40); White Blood Count 10.98 K/ul (4.8-10.8)
--- NOTE | 2025-06-12 13:26 | Electrocardiogram Report ---
Test Reason : Blood Pressure : */* mmHG Vent. Rate : 69 BPM Atrial Rate : 69 BPM P-R Int : 128 ms QRS Dur : 70 ms QT Int : 426 ms P-R-T Axes : 40 -14 123 degrees QTcB Int : 456 ms Sinus rhythm with Premature atrial complexes Left ventricular hypertrophy with repolarization abnormality ( R in aVL ) Abnormal ECG When compared with ECG of 08-Jun-2025 06:37, Premature atrial complexes are now Present Confirmed by Maulik Jolly ([id number]) on 06/12/2025 1:26:08 PM Referred By: REFERRED SELF Confirmed By: Maulik Jolly
[2025-06-12 14:25] VITALS: BP 116/64; PULSE 74; RESP 16; TEMP 97.7; O2SAT 96
--- NOTE | 2025-06-13 10:35 | Discharge Summary ---
Discharge Summary Date of Service June 13, 2025 Principal Dx & Hospital Course #1 = Principal Diagnosis (1) Hydronephrosis: (2) Elevated lactic acid level: (3) Leukocytosis: (4) Calculus of distal right ureter: (5) Acute UTI (urinary tract infection): (6) Severe sepsis: (7) HTN (hypertension): (8) GERD (gastroesophageal reflux disease): (9) PMR (polymyalgia rheumatica): (10) Hypothyroid: Plan Belinda Saucedo is an 85 year old female admitted to [facility] from June 07 to June 12, 2025 due to urine tract infection in the setting of a kidney stone causing sepsis. She was treated with intravenous ceftriaxone and had reaction to this therefore recommend following up with allergy regarding this. Antibiotics were switched to ciprofloxacin. She required intravenous fluids and stress dose steroids but even with this developed ANGELI now resolved on discharge. She underwent right ureteral stent insertion on June 07. Urine grew pansensitive Klebsiella pneumoniae. Her stay was prolonged due to stent pain which now appears improved with tamsulosin, Pyridium, oxycodone and oxybutynin. She will follow up with urology on discharge to have this stent removed and further stone management. 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 Sharp pain, non radiating. Associated nausea but no vomiting. [place] similar to her last kidney stone but she reports this was many years ago in the 1980s and passed without intervention. Her daughter has also noticed she has been off this last week, sleeping more during the day and increasingly fatigued. No specific urine complaints. No fever or chills. Last ate and drank last night around 7-7:30pm. She did not take her morning medications. Discharge Exam Constitutional WD/WN, vitals as above Respiratory normal respiratory effort, lungs clear to auscultation Cardiovascular RRR, no murmur, no edema Gastrointestinal (Abdomen) Percussion/Palpation: abdomen soft; abdomen nontender Genitourinary + CVA tenderness (right) Discharge Plan Discharge Items Patient Disposition: Home - Self-Care Reason For Visit: SEPSIS, UTI, URETEROLITHIASIS Discharge Diagnosis: Sepsis, UTI, kidney stone Condition on Discharge: Good Activity: Resume your previous activity Non-emergency contact: Urologist Call non-emergency contact if: you have any medication questions and your symptoms worsen Follow-up/Referrals: Del Segovia CRNP [Primary Care Provider] - 06/20/25 11:00 am Brandon Smith MD [Physician] - (Follow up ureterolithiasis) Gabriel De Los Santos MD [Physician] - (Possible ceftriaxone allergy) Diet: Regular Addtl Attending Provider Instructions: You were admitted to [facility] from June 07 to June 12, 2025 due to urine tract infection in the setting of a kidney stone causing sepsis. You were treated with intravenous ceftriaxone and had reaction to this therefore recommend following up with allergy regarding this. Antibiotics were switched to ciprofloxacin. You required intravenous fluids and stress dose steroids. You underwent right ureteral stent insertion on June 07. Urine grew Klebsiella pneumoniae. Your stay was prolonged due to stent pain which now appears improved with tamsulosin and oxybutynin. Please continue to take Pyridium and oxycodone as needed for pain. You will follow up with urology on discharge to have this stent removed and further stone management. Pending Studies at Discharge: No Stand-Alone Forms: My [facility], Smoking Cessation Medications and DC Order Prescriptions: New ciprofloxacin HCl 500 mg Tablet 500 mg PO DAILY 2 Days Qty: 2 0RF tamsulosin 0.4 mg Capsule 0.4 mg PO QAM 14 Days Qty: 14 0RF pantoprazole 40 mg Tablet,Delayed Release (Dr/Ec) 40 mg PO QAM 14 Days Qty: 14 0RF oxycodone 5 mg Tablet 5 mg PO Q6H PRN (Reason: pain) Qty: 20 0RF ondansetron 4 mg tablet,disintegrating 4 mg PO TID PRN (Reason: nausea and vomiting) Qty: 10 0RF oxybutynin chloride 5 mg tablet extended release 24hr 5 mg PO DAILY Qty: 14 0RF phenazopyridine [Pyridium] 100 mg tablet 100 mg PO Q8H PRN (Reason: pain) Qty: 6 0RF Continued fluticasone propionate 50 mcg/actuation spray,suspension 2 spray intranasal DAILY Qty: 48 3RF Rx Instructions: administer into each nostril alendronate [Fosamax] 70 mg tablet 70 mg PO .Weekly Qty: 12 3RF Rx Instructions: Take 30 min. before food, avoid lying down x 30 min after ingestion. levothyroxine 75 mcg tablet 75 mcg PO DAILY Qty: 90 1RF clobetasol 0.05 % ointment See Rx Instructions .ROUTE .COMPLEX Qty: 30 3RF Dose Instruction: APPLY A THIN LAYER TO AFFECTED SKIN TWO DAYS IN A ROW, THEN TAKE 5 DAYS OFF. Rx Instructions: APPLY A THIN LAYER TO AFFECTED SKIN TWO DAYS IN A ROW, THEN TAKE 5 DAYS OFF. lorazepam 0.5 mg tablet 0.5 mg PO DAILY PRN (Reason: Anxiety) Qty: 20 1RF Hold Instructions: trial of trazodone candesartan 32 mg tablet 32 mg PO QAM Qty: 90 1RF escitalopram oxalate 5 mg tablet 5 mg PO DAILY Qty: 90 3RF prednisone 5 mg tablet 5 mg PO QAM Qty: 30 0RF meclizine 25 mg tablet 25 mg PO TID PRN (Reason: dizziness) Qty: 30 0RF acetaminophen [Tylenol Extra Strength] 500 mg tablet 1,000 mg PO Q8 PRN (Reason: Pain) cholecalciferol (vitamin D3) 2,000 unit capsule 2,000 units PO QAM Imodium Multi-Symptom Relief 2-125 mg tablet 2 tab PO Q3H PRN (Reason: loose stool) Qty: 30 0RF Rx Instructions: do not exceed 4 tabs in 24 hrs baclofen 5 mg tablet 5 mg PO DAILY PRN (Reason: Muscle Spasm) Discharge Orders: Discharge Order (Routine); Ordered 06/12/25 Ordered By: Levar Nunes Admission Data Admit Date/Time: 06/07/25 11:17 Attending Provider: Levar Nunes Admit Provider: Levar Nunes Primary Care Provider: Del Segovia Other Providers: Levar Nunes Other Interventions: Discharge Summary Assessment (RN) Last Done: 06/12/25 14:15 Hospital Stay Data Consultations 06/07/25 10:42 Consult Urology Stat ED Decision to Admit Stat Procedures Performed Operation Date: 06/07/25 07:00 Actual Procedures p Cystoscopy Right Stent Placement(Right) - Brandon Smith MD Diagnostic Imagining Performed 06/07/25 [place] retrograde includes kub Routine 06/07/25 08:32 CT Abd and Pelvis [CT abd pelvis IV con only] Stat Pending Results Patient Have Any Pending Studies at Discharge: No Discharge Instructions Given to Patient (Per Discharging Provider) You were admitted to [facility] from June 07 to June 12, 2025 due to urine tract infection in the setting of a kidney stone causing sepsis. You were treated with intravenous ceftriaxone and had reaction to this therefore recommend following up with allergy regarding this. Antibiotics were switched to ciprofloxacin. You required intravenous fluids and stress dose steroids. You underwent right ureteral stent insertion on June 07. Urine grew Klebsiella pneumoniae. Your stay was prolonged due to stent pain which now appears improved with tamsulosin and oxybutynin. Please continue to take Pyridium and oxycodone as needed for pain. You will follow up with urology on discharge to have this stent removed and further stone management. Total Time Total Time Spent Total Time Spent (In Minutes): 40 Total Time Includes: Examination of the Patient, Discharge Planning, Medication Reconciliation and Communication With Other Providers Coding Level of Care Code 72056 INP/OBS DISCH >30 MIN Diagnoses Hydronephrosis N13.30 Elevated lactic acid level R79.89 Leukocytosis D72.829 Calculus of distal right ureter N20.1 Acute UTI (urinary tract infection) N39.0 Severe sepsis A41.9; R65.20 Essential hypertension I10 Hypertension type: essential hypertension GERD (gastroesophageal reflux disease) K21.9 PMR (polymyalgia rheumatica) M35.3 Hypothyroid E03.9
== END 2025-06-12 14:48 | disposition home or self-care (01) | DRG 854 ==
LOC: ED 07:58 → 2S 11:17 → 3W 06-09 12:38